=== PATIENT | female | born 1945 | race Caucasian/White ===

== ENCOUNTER 2018-07-28 15:13 | Inpatient (IN) | payer MEDICARE, BC ==
[~2018-07-28] VITALS: Ht 157.5 cm; Wt 59.0 kg
[2018-07-28 15:37] LABS: BASO # 0.1 x10^3/uL (0.0-0.2); BASO % 1 % (0-3); EOS # 0.2 x10^3/uL (0.0-0.7); EOS % 2 % (0-3); HEMATOCRIT 33.1 % (36.0-47.0); HEMOGLOBIN 11.2 g/dL (12.0-15.5); LYMPH # 1.1 x10^3/uL (1.0-4.8); LYMPH % 13 % (24-48); MEAN CORPUSCULAR HEMOGLOBIN 31 pg (25-35); MEAN CORPUSCULAR HGB CONC 34 g/dL (31-37); MEAN CORPUSCULAR VOLUME 92 fL (79-100); MONO # 0.7 x10^3/uL (0.0-1.1); MONO % 9 % (0-9); NEUT # 6.5 x10^3uL (1.8-7.7); NEUT % 76 % (31-73); PLATELET COUNT 205 x10^3/uL (140-400); RED CELL DISTRIBUTION WIDTH 15.1 % (11.5-14.5); WHITE BLOOD COUNT 8.6 x10^3/uL (4.0-11.0)
[2018-07-28] MEDS ORDERED: fentaNYL PF VIAL 100 MCG/2 ML VIAL ONE (15:44)
--- NOTE | 2018-07-28 15:46 | PHYS DOC ---
Past Medical History Past Medical History: No Pertinent History Additional Past Medical Histor: UNABLE TO ASSESS Past Surgical History: No Surgical History Additional Past Surgical Histo: UNABLE TO ASSESS Alcohol Use: None Drug Use: None Adult General Chief Complaint Chief Complaint: MECHANICAL FALL HPI HPI Patient is a 73 year old F who presents for fall down stairs. Found by at the bottom of the stairs. Maybe slipped on a piece of cardboard. Reported R hip deformity. Pt was given ketamine for pain and she is now sedate and cannot answer questions. Review of Systems Review of Systems Unable to obtain a ROS due to patients AMS 2/2 ketamine. Current Medications Current Medications Current Medications Medications (Trade) Dose Ordered Sig/Guzman Start Time Stop Time Status Last Admin Dose Admin Fentanyl Citrate (Fentanyl 2ml Vial) 50 mcg 1X ONCE 07/28/18 16:45 07/28/18 16:46 DC 07/28/18 16:44 50 MCG Hydromorphone HCl (Dilaudid) 0.5 mg PRN Q2HR PRN 07/28/18 17:00 07/28/18 16:59 0.5 MG Info (CONTRAST GIVEN -- Rx MONITORING) 1 each PRN DAILY PRN 07/28/18 16:15 07/30/18 16:14 Iohexol (Omnipaque 300 Mg/ml) 100 ml STK-MED ONCE 07/28/18 16:08 07/28/18 16:09 DC Ondansetron HCl (Zofran) 4 mg STK-MED ONCE 07/28/18 16:12 07/28/18 16:13 DC Allergies Allergies Allergies Coded Allergies Type Severity Reaction Last Updated Verified No Known Drug Allergies 07/28/18 No Physical Exam Physical Exam Constitutional: No distress HENT: Normocephalic, atraumatic, bilateral external ears normal, oropharynx moist, no oral exudates, nose normal. Eyes: PERRLA, EOMI, conjunctiva normal, no discharge. Neck: Cervical collar placed on arrival, trachea midline Cardiovascular: Heart rate regular rhythm, no murmur Lungs & Thorax: Bilateral breath sounds clear to auscultation Abdomen: Bowel sounds normal, soft, no tenderness, no masses, no pulsatile masses. Skin: Warm, dry, no erythema, no rash. Back: No tenderness, no CVA tenderness. Extremities: No tenderness, no cyanosis, no clubbing, ROM intact, no edema. bilat upper extremities and LLE with intact ROM - no deformity/tenderness/crepitus. R leg without deformity, 2+ DP pulse, traction splint in place. Neurologic: Alert, normal motor and sensory fx, unable to test R leg as it is in traction on arrival. Psychologic: Affect normal, judgement normal, mood normal. Current Patient Data Vital Signs Vital Signs Date Time Temp Pulse Resp B/P (MAP) Pulse Ox O2 Delivery O2 Flow Rate FiO2 07/28/18 17:00 78 16 100 07/28/18 15:42 Nasal Cannula 4.0 07/28/18 15:13 98.3 158/76 (103) 98.3 Lab Values Laboratory Tests Test 07/28/18 15:20 07/28/18 15:40 White Blood Count 8.6 x10^3/uL (4.0-11.0) Red Blood Count 3.60 x10^6/uL (3.50-5.40) Hemoglobin 11.2 g/dL (12.0-15.5) L Hematocrit 33.1 % (36.0-47.0) L Mean Corpuscular Volume 92 fL (79-100) Mean Corpuscular Hemoglobin 31 pg (25-35) Mean Corpuscular Hemoglobin Concent 34 g/dL (31-37) Red Cell Distribution Width 15.1 % (11.5-14.5) H Platelet Count 205 x10^3/uL (140-400) Neutrophils (%) (Auto) 76 % (31-73) H Lymphocytes (%) (Auto) 13 % (24-48) L Monocytes (%) (Auto) 9 % (0-9) Eosinophils (%) (Auto) 2 % (0-3) Basophils (%) (Auto) 1 % (0-3) Neutrophils # (Auto) 6.5 x10^3uL (1.8-7.7) Lymphocytes # (Auto) 1.1 x10^3/uL (1.0-4.8) Monocytes # (Auto) 0.7 x10^3/uL (0.0-1.1) Eosinophils # (Auto) 0.2 x10^3/uL (0.0-0.7) Basophils # (Auto) 0.1 x10^3/uL (0.0-0.2) Prothrombin Time 12.6 SEC (11.7-14.0) Prothrombin Time INR 1.0 (0.8-1.1) PTT 30 SEC (24-38) Sodium Level 141 mmol/L (136-145) Potassium Level 3.7 mmol/L (3.5-5.1) Chloride Level 103 mmol/L (98-107) Carbon Dioxide Level 28 mmol/L (21-32) Anion Gap 10 (6-14) Blood Urea Nitrogen 23 mg/dL (7-20) H Creatinine 0.9 mg/dL (0.6-1.0) Estimated GFR (Cockcroft-Gault) 61.5 BUN/Creatinine Ratio 26 (6-20) H Glucose Level 306 mg/dL (70-99) H Calcium Level 9.0 mg/dL (8.5-10.1) Total Bilirubin 0.4 mg/dL (0.2-1.0) Aspartate Amino Transferase (AST) 15 U/L (15-37) Alanine Aminotransferase (ALT) 19 U/L (14-59) Alkaline Phosphatase 60 U/L (46-116) Total Protein 6.6 g/dL (6.4-8.2) Albumin 3.5 g/dL (3.4-5.0) Albumin/Globulin Ratio 1.1 (1.0-1.7) Urine Collection Type Unknown Urine Color Yellow Urine Clarity Clear Urine pH 7.5 Urine Specific [place] 1.020 Urine Protein Negative mg/dL (NEG-TRACE) Urine Glucose (UA) 500 mg/dL (NEG) Urine Ketones (Stick) Trace mg/dL (NEG) Urine Blood Negative (NEG) Urine Nitrite Negative (NEG) Urine Bilirubin Negative (NEG) Urine Urobilinogen Dipstick 0.2 mg/dL (0.2 mg/dL) Urine Leukocyte Esterase Negative (NEG) Urine RBC Occ /HPF (0-2) Urine WBC Occ /HPF (0-4) Urine Squamous Epithelial Cells Few /LPF Urine Bacteria 0 /HPF (0-FEW) Laboratory Tests 07/28/18 15:20 Laboratory Tests 07/28/18 15:20 EKG EKG [] Radiology/Procedures Radiology/Procedures [] Course & Med Decision Making Course & Med Decision Making Pertinent Labs and Imaging studies reviewed. (See chart for details) 73 y/o F presents for fall. Xray shows R hip fx. CTs pending. Traction placed by EMS removed after xrays. Consulted Dr Dasilva - plan for OR tomorrow. Admit to Dr. Hatch [id number]. Dragon Disclaimer Glenn Disclaimer This electronic medical record was generated, in whole or in part, using a voice recognition dictation system. Departure Departure Impression: Primary Impression: Fall Additional Impression: Hip fracture, right Disposition: 09 ADMITTED INPATIENT Admitting Physician: Vielka Hatch Condition: GUARDED Problem Qualifiers POLY TELLEZ MD July 28, 2018 15:46
[2018-07-28 15:47] LABS: PROTHROMBIN TIME PATIENT 12.6 SEC (11.7-14.0)
--- NOTE | 2018-07-28 15:56 | RAD ---
Single view pelvis and two-view right femur dated 07/28/2018. No comparison available. CLINICAL INDICATION: Pain after injury. FINDINGS: AP view pelvis and 2 views right femur show a comminuted oblique fracture through the subtrochanteric right femur with mild medial displacement at the fracture site. There are fracture lines extending to the intertrochanteric region. No definite extension to the femoral neck. The distal femoral shaft is intact. Images of the pelvis are somewhat limited due to obliquity. There is no displaced fracture. The pelvic ring is grossly intact. Mild degenerative change of the bilateral hip joint and bilateral SI joint and pubic symphysis. Moderate spondylotic change of the lower lumbar spine. IMPRESSION: 1. Comminuted fracture of the subtrochanteric right femur with fracture lines extending to the intertrochanteric region. There is mild displacement. 2. No additional fractures are apparent. The pelvis is somewhat limited in evaluation due to obliquity. 3. Degenerative changes as described. Electronically signed by: Yassine Lemus MD (07/28/2018 3:53 PM) [id number]
--- NOTE | 2018-07-28 15:57 | RAD ---
EXAM: CHEST 1 VIEW History: Fall COMPARISON: None available. TECHNIQUE: Single portable radiograph of the chest FINDINGS: The cardiac silhouette is unremarkable. Mild prominent bilateral interstitial lung markings bilateral interstitial lung markings could be congestive changes or chronic interstitial changes. The costophrenic sulci are clear and well demarcated. IMPRESSION: Mild prominent bilateral interstitial lung markings could be congestive changes or chronic interstitial changes. Electronically signed by: Nam Enriquez MD (07/28/2018 3:53 PM) [place] [id number]
[2018-07-28 16:00] LABS: CREATININE 0.9 mg/dL (0.6-1.0); GFR 61.5; POTASSIUM 3.7 mmol/L (3.5-5.1)
[2018-07-28 16:03] LABS: ALBUMIN 3.5 g/dL (3.4-5.0); ALBUMIN/GLOBULIN RATIO 1.1 (1.0-1.7); TOTAL BILIRUBIN 0.4 mg/dL (0.2-1.0); TOTAL PROTEIN 6.6 g/dL (6.4-8.2)
[2018-07-28] MEDS ORDERED: IOHEXOL 300 MG/ML 100ML VIAL. ONE (16:08)
[2018-07-28] MEDS ORDERED: ONDANSETRON PF 4 MG/2 ML VIAL. ONE (16:12)
[2018-07-28] MEDS ORDERED: IOHEXOL 300 MG/ML 100ML VIAL. IV ONE (16:15)
[2018-07-28] MEDS ORDERED: fentaNYL PF VIAL 100 MCG/2 ML VIAL IV ONE ×3 (16:15→20:30)
[2018-07-28] MEDS ORDERED: ONDANSETRON PF 4 MG/2 ML VIAL. IV ONE (16:15)
[2018-07-28] MEDS ORDERED: CONTRAST GIVEN. MC PRN (16:15)
--- NOTE | 2018-07-28 16:37 | RAD ---
Examination: CT HEAD AND CERVICAL SPINE WO History: Fall down stairs, pain. Comparison/Correlation: None Findings: Axial images of the head and cervical spine were obtained without contrast. Sagittal and coronal reformatted images of the cervical spine were obtained. Atrophy is present. No intracranial hemorrhage, then shift, or mass effect. Globes and optic nerves are unremarkable. Atlantoaxial joint degenerative remodeling is notable. Minimal anterolisthesis of C3 relation C4 and C4 in relation C5 is present. This may relate to facet joint degenerative remodeling which is notable involving the upper cervical spine. Mild to moderate C6/7 disc space narrowing is present. Spurring is noted at the anterior aspect of the mid to lower cervical spine. Bony encroachment on the neural foramina noted at the C5-6 and C6/7 levels. Soft tissues of the neck are unremarkable. Visualized lung apices are unremarkable. Impression: No intracranial hemorrhage. Graft atrophy. No fracture or suspicious malalignment. PQRS Compliance Statement: One or more of the following individualized dose reduction techniques were utilized for this examination: 1. Automated exposure control 2. Adjustment of the mA and/or kV according to patient size 3. Use of iterative reconstruction technique Electronically signed by: Joseph Lin MD (07/28/2018 4:34 PM) [facility]
--- NOTE | 2018-07-28 16:52 | PDOC ---
Provider Note Provider Note Consult received. Chart and x-rays reviewed. Patient apparently still sedated so I will speak to her tomorrow. She has a right subtrochanteric femur fracture reported to me as closed. I will schedule surgery for tomorrow afternoon, approximately 3:30 PM. NADJA SAWYER MD July 28, 2018 16:52
--- NOTE | 2018-07-28 16:52 | RAD ---
Examination: CT CHEST ABD PELVIS W/CONTRAST History: Fell down stairs, pain, trauma Comparison/Correlation: None Findings: Axial images of chest, abdomen, and pelvis were obtained following IV contrast. Sagittal and coronal reformatted images were provided. Evaluation may be limited due to streak artifact as the patient's upper extremities are besides her during scanning. Subcutaneous gas is noted deep to the proximal right clavicle. Catheter tubing is identified leading to this site. Correlate with intervention. Significant coronary arterial calcification is noted. Mitral annular calcification noted. Thoracic aorta is unremarkable on this nonarteriographic exam. Mild gravity dependent atelectasis bilaterally is present. No infiltrate or effusion. No pneumothorax. No enlarged thoracic lymph nodes. Subtle nodular contour of the liver is present. Spleen, pancreas, and kidneys are unremarkable. Bilateral adrenal gland nodularity is present probably representing benign adenomas. Moderate quantity of stool in the colon is present. No ascites or pelvic free fluid. No extraluminal gas. No enlarged abdominal or pelvic lymph nodes. Mooney catheter is present within the urinary bladder. Low lumbar spine facet joint degenerative changes are present bilaterally. L3-4 degenerative space narrowing with endplate sclerosis and spurring noted. Disc space narrowing at L4 S5 also is present. Concentric disc bulge at each of these levels is notable. Comminuted displaced right intertrochanteric fracture is present with significant lateral angulation of the dominant fracture fragments. Hip joint spaces are adequate. Impression: Comminuted, displaced right intertrochanteric fracture. No evidence of organ laceration. Subcutaneous gas is present deep to the proximal right clavicle. Correlate with intervention. PQRS Compliance Statement: One or more of the following individualized dose reduction techniques were utilized for this examination: 1. Automated exposure control 2. Adjustment of the mA and/or kV according to patient size 3. Use of iterative reconstruction technique Electronically signed by: Joseph Lin MD (07/28/2018 4:49 PM) [facility]
[2018-07-28] MEDS: HYDROmorphone 2 MG/ML VIAL IV PRN (16:59)
[2018-07-28 17:05] LABS: BILIRUBIN,URINE NEGATIVE (NEG); CLARITY,URINE CLEAR; COLOR,URINE YELLOW; NITRITE,URINE NEGATIVE (NEG); PH,URINE 7.5; PROTEIN,URINE NEGATIVE (NEG-TRACE); UROBILINOGEN,URINE 0.2 mg/dL (0.2 mg/dL)
[2018-07-28 17:30] LABS: BACTERIA,URINE 0 /HPF (0-FEW); RBC,URINE OCC /HPF (0-2); SQUAMOUS EPITHELIAL CELL,UR FEW /LPF; WBC,URINE OCC /HPF (0-4)
[2018-07-28] MEDS: fentaNYL PF VIAL 100 MCG/2 ML VIAL IV PRN ×3 (18:40→20:57)
[2018-07-28 19:00] VITALS: BP 133/69
[2018-07-28] MEDS ORDERED: ONDANSETRON PF 4 MG/2 ML VIAL. IV PRN (20:15)
--- NOTE | 2018-07-28 20:15 | NUR ---
Patient complain of pain. Dr. Hatch notified. Orders received. Will continue to monitor.
[2018-07-28] MEDS ORDERED: fentaNYL PF VIAL 100 MCG/2 ML VIAL IV PRN (20:30)
[2018-07-28] MEDS: IV NORMAL SALINE 1000ML BAG 1,000 ML IV SCH (21:11)
--- NOTE | 2018-07-28 21:43 | PDOC1 ---
History and Physical Date of Admission Date of Admission DATE: 07/28/18 TIME: 21:40 Source Source: Caregiver, Chart review History of Present Illness History of Present Illness Ms. Villatoro, is a 73 year old F who presents for fall down stairs. Found by at the bottom of the stairs. Maybe slipped on a piece of cardboard. Reported R hip deformity. Pt was given ketamine for pain en route and she was out hard in the ER. then awake later on the floor and agitated and angry, increased meds given, and then asleep her daughter is her to assist tongiht. Past Medical History Cardiovascular: No pertinent hx Pulmonary: No pertinent hx Past Surgical History Past Surgical History: No pertinent history Family History Family History: No Significant Social History Smoke: No ALCOHOL: none Drugs: None Current Problem List Problem List Problems Medical Problems: (1) Fall Status: Acute (2) Hip fracture, right Status: Acute Current Medications Current Medications Current Medications Fentanyl Citrate (Fentanyl 2ml Vial) 100 mcg STK-MED ONCE .ROUTE ; Start 07/28/18 at 15:44; Stop 07/28/18 at 15:45; Status DC Iohexol (Omnipaque 300 Mg/ml) 75 ml 1X ONCE IV Last administered on 07/28/18at 16:22; Start 07/28/18 at 16:15; Stop 07/28/18 at 16:25; Status DC Fentanyl Citrate (Fentanyl 2ml Vial) 50 mcg 1X ONCE IV Last administered on 07/28/18at 16:34; Start 07/28/18 at 16:15; Stop 07/28/18 at 16:25; Status DC Info (CONTRAST GIVEN -- Rx MONITORING) 1 each PRN DAILY PRN MC SEE COMMENTS; Start 07/28/18 at 16:15; Stop 07/30/18 at 16:14 Iohexol (Omnipaque 300 Mg/ml) 100 ml STK-MED ONCE .ROUTE ; Start 07/28/18 at 16:08; Stop 07/28/18 at 16:09; Status DC Ondansetron HCl (Zofran) 4 mg 1X ONCE IV Last administered on 07/28/18at 16:34; Start 07/28/18 at 16:15; Stop 07/28/18 at 16:25; Status DC Ondansetron HCl (Zofran) 4 mg STK-MED ONCE .ROUTE ; Start 07/28/18 at 16:12; Stop 07/28/18 at 16:13; Status DC Fentanyl Citrate (Fentanyl 2ml Vial) 50 mcg 1X ONCE IV Last administered on 07/28/18at 16:44; Start 07/28/18 at 16:45; Stop 07/28/18 at 16:46; Status DC Hydromorphone HCl (Dilaudid) 0.5 mg PRN Q2HR PRN IV BREAKTHROUGH PAIN Last administered on 07/28/18at 16:59; Start 07/28/18 at 17:00 Ropivacaine 53.3 ml/Epinephrine HCl 0.6 mg/ Morphine Sulfate 5 mg/Sodium Chloride 100 ml @ 100 mls/hr 1X ONCE INT ART ; Start 07/29/18 at 06:00; Stop 07/29/18 at 06:59 Fentanyl Citrate (Fentanyl 2ml Vial) 50 mcg PRN Q1HR PRN IV PAIN Last administered on 07/28/18at 20:57; Start 07/28/18 at 18:45 Ondansetron HCl (Zofran) 4 mg PRN Q6HRS PRN IV NAUSEA/VOMITING; Start 07/28/18 at 20:15 Fentanyl Citrate (Fentanyl 2ml Vial) 75 mcg PRN Q2HR PRN IV PAIN; Start 07/28/18 at 20:30 Fentanyl Citrate (Fentanyl 2ml Vial) 100 mcg 1X ONCE IV ; Start 07/28/18 at 20:30; Stop 07/28/18 at 20:33; Status DC Sodium Chloride 1,000 ml @ 80 mls/hr [id number] IV Last administered on 07/28/18at 21:11; Start 07/28/18 at 20:30 Ketorolac Tromethamine (Toradol 15mg Vial) 15 mg PRN Q6HRS PRN IV MODERATE PAIN; Start 07/28/18 at 21:15; Stop 08/02/18 at 21:14 Allergies Allergies: Coded Allergies: No Known Drug Allergies (Unverified , 07/28/18) ROS Review of System unable due to agitation then sedation Physical Exam General: Alert, severe distress, Other (then sedated) HEENT: Atraumatic, PERRLA Lungs: Clear to auscultation Extremities: No cyanosis, No edema Skin: No rashes Neuro: Sensation intact Psych/Mental Status: Other (agitated, upset, then asleep) Vitals Vitals Vital Signs Date Time Temp Pulse Resp B/P (MAP) Pulse Ox O2 Delivery O2 Flow Rate FiO2 07/28/18 20:57 Nasal Cannula 3.0 07/28/18 19:49 100 07/28/18 19:00 97.5 87 18 133/69 (90) 97.5 Labs Labs Laboratory Tests Test 07/28/18 15:20 07/28/18 15:40 White Blood Count 8.6 x10^3/uL (4.0-11.0) Red Blood Count 3.60 x10^6/uL (3.50-5.40) Hemoglobin 11.2 g/dL (12.0-15.5) Hematocrit 33.1 % (36.0-47.0) Mean Corpuscular Volume 92 fL (79-100) Mean Corpuscular Hemoglobin 31 pg (25-35) Mean Corpuscular Hemoglobin Concent 34 g/dL (31-37) Red Cell Distribution Width 15.1 % (11.5-14.5) Platelet Count 205 x10^3/uL (140-400) Neutrophils (%) (Auto) 76 % (31-73) Lymphocytes (%) (Auto) 13 % (24-48) Monocytes (%) (Auto) 9 % (0-9) Eosinophils (%) (Auto) 2 % (0-3) Basophils (%) (Auto) 1 % (0-3) Neutrophils # (Auto) 6.5 x10^3uL (1.8-7.7) Lymphocytes # (Auto) 1.1 x10^3/uL (1.0-4.8) Monocytes # (Auto) 0.7 x10^3/uL (0.0-1.1) Eosinophils # (Auto) 0.2 x10^3/uL (0.0-0.7) Basophils # (Auto) 0.1 x10^3/uL (0.0-0.2) Prothrombin Time 12.6 SEC (11.7-14.0) Prothromb Time International Ratio 1.0 (0.8-1.1) Activated Partial Thromboplast Time 30 SEC (24-38) Sodium Level 141 mmol/L (136-145) Potassium Level 3.7 mmol/L (3.5-5.1) Chloride Level 103 mmol/L (98-107) Carbon Dioxide Level 28 mmol/L (21-32) Anion Gap 10 (6-14) Blood Urea Nitrogen 23 mg/dL (7-20) Creatinine 0.9 mg/dL (0.6-1.0) Estimated GFR (Cockcroft-Gault) 61.5 BUN/Creatinine Ratio 26 (6-20) Glucose Level 306 mg/dL (70-99) Calcium Level 9.0 mg/dL (8.5-10.1) Total Bilirubin 0.4 mg/dL (0.2-1.0) Aspartate Amino Transf (AST/SGOT) 15 U/L (15-37) Alanine Aminotransferase (ALT/SGPT) 19 U/L (14-59) Alkaline Phosphatase 60 U/L (46-116) Total Protein 6.6 g/dL (6.4-8.2) Albumin 3.5 g/dL (3.4-5.0) Albumin/Globulin Ratio 1.1 (1.0-1.7) Urine Collection Type Unknown Urine Color Yellow Urine Clarity Clear Urine pH 7.5 Urine Specific [place] 1.020 Urine Protein Negative mg/dL (NEG-TRACE) Urine Glucose (UA) 500 mg/dL (NEG) Urine Ketones (Stick) Trace mg/dL (NEG) Urine Blood Negative (NEG) Urine Nitrite Negative (NEG) Urine Bilirubin Negative (NEG) Urine Urobilinogen Dipstick 0.2 mg/dL (0.2 mg/dL) Urine Leukocyte Esterase Negative (NEG) Urine RBC Occ /HPF (0-2) Urine WBC Occ /HPF (0-4) Urine Squamous Epithelial Cells Few /LPF Urine Bacteria 0 /HPF (0-FEW) Laboratory Tests Test 07/28/18 15:20 07/28/18 15:40 White Blood Count 8.6 x10^3/uL (4.0-11.0) Red Blood Count 3.60 x10^6/uL (3.50-5.40) Hemoglobin 11.2 g/dL (12.0-15.5) Hematocrit 33.1 % (36.0-47.0) Mean Corpuscular Volume 92 fL (79-100) Mean Corpuscular Hemoglobin 31 pg (25-35) Mean Corpuscular Hemoglobin Concent 34 g/dL (31-37) Red Cell Distribution Width 15.1 % (11.5-14.5) Platelet Count 205 x10^3/uL (140-400) Neutrophils (%) (Auto) 76 % (31-73) Lymphocytes (%) (Auto) 13 % (24-48) Monocytes (%) (Auto) 9 % (0-9) Eosinophils (%) (Auto) 2 % (0-3) Basophils (%) (Auto) 1 % (0-3) Neutrophils # (Auto) 6.5 x10^3uL (1.8-7.7) Lymphocytes # (Auto) 1.1 x10^3/uL (1.0-4.8) Monocytes # (Auto) 0.7 x10^3/uL (0.0-1.1) Eosinophils # (Auto) 0.2 x10^3/uL (0.0-0.7) Basophils # (Auto) 0.1 x10^3/uL (0.0-0.2) Prothrombin Time 12.6 SEC (11.7-14.0) Prothromb Time International Ratio 1.0 (0.8-1.1) Activated Partial Thromboplast Time 30 SEC (24-38) Sodium Level 141 mmol/L (136-145) Potassium Level 3.7 mmol/L (3.5-5.1) Chloride Level 103 mmol/L (98-107) Carbon Dioxide Level 28 mmol/L (21-32) Anion Gap 10 (6-14) Blood Urea Nitrogen 23 mg/dL (7-20) Creatinine 0.9 mg/dL (0.6-1.0) Estimated GFR (Cockcroft-Gault) 61.5 BUN/Creatinine Ratio 26 (6-20) Glucose Level 306 mg/dL (70-99) Calcium Level 9.0 mg/dL (8.5-10.1) Total Bilirubin 0.4 mg/dL (0.2-1.0) Aspartate Amino Transf (AST/SGOT) 15 U/L (15-37) Alanine Aminotransferase (ALT/SGPT) 19 U/L (14-59) Alkaline Phosphatase 60 U/L (46-116) Total Protein 6.6 g/dL (6.4-8.2) Albumin 3.5 g/dL (3.4-5.0) Albumin/Globulin Ratio 1.1 (1.0-1.7) Urine Collection Type Unknown Urine Color Yellow Urine Clarity Clear Urine pH 7.5 Urine Specific [place] 1.020 Urine Protein Negative mg/dL (NEG-TRACE) Urine Glucose (UA) 500 mg/dL (NEG) Urine Ketones (Stick) Trace mg/dL (NEG) Urine Blood Negative (NEG) Urine Nitrite Negative (NEG) Urine Bilirubin Negative (NEG) Urine Urobilinogen Dipstick 0.2 mg/dL (0.2 mg/dL) Urine Leukocyte Esterase Negative (NEG) Urine RBC Occ /HPF (0-2) Urine WBC Occ /HPF (0-4) Urine Squamous Epithelial Cells Few /LPF Urine Bacteria 0 /HPF (0-FEW) VTE Prophylaxis Ordered VTE Prophylaxis Devices: Yes VTE Pharmacological Prophylaxi: No Assessment/Plan Assessment/Plan fall acute right hip pain hip fracture plan to OR in AM pain difficult to control CARIN GUTIERREZ MD July 28, 2018 21:43
[2018-07-28] MEDS: KETOROLAC 15 MG/ML VIAL. IV PRN (22:13)
[2018-07-28 23:00] VITALS: BP 148/69
[2018-07-29] VITALS (11 sets, daily range): BP systolic 105–121; BP diastolic 43–73
[2018-07-29] MEDS: HYDROmorphone 2 MG/ML VIAL IV PRN ×5 (03:29→14:22)
[2018-07-29] MEDS ORDERED: [UNRECOGNIZED DRUG - REMARK] INT ART ONE ×4 (06:00)
[2018-07-29] MEDS: IV NORMAL SALINE 1000ML BAG 1,000 ML IV SCH ×2 (07:35→22:00)
--- NOTE | 2018-07-29 08:21 | PDOC ---
PROGRESS NOTES Chief Complaint Chief Complaint fall acute right hip pain hip fracture Hypothyroidism DM2 HTN Anemia - likely of chronic disease, will check iron, b12 Osteopenia - on calcium and vitamin D, will check D plan to OR this afternoon Restart home meds Lovenox post op History of Present Illness History of Present Illness Ms. Villatoro, is a 73 year old F w/ PMHx DM2, HTN, HLD, osteopenia who presents for fall down stairs. Found by at the bottom of the stairs. Maybe slipped on a piece of cardboard. Reported R hip deformity. Pt was given ketamine for pain en route and she was out hard in the ER. then awake later on the floor and agitated and angry, increased meds given, and then asleep Pain difficult to control. Feeling a bit better this afternoon. She has an appetite, frustrated about NPO, scared of the OR. Vitals Vitals Vital Signs Date Time Temp Pulse Resp B/P (MAP) Pulse Ox O2 Delivery O2 Flow Rate FiO2 07/29/18 07:34 Nasal Cannula 3.0 07/29/18 07:00 98.2 82 18 110/45 (66) 97 98.2 Physical Exam General: Alert, severe distress, Other (then sedated) Extremities: No cyanosis, No edema Skin: No rashes Labs LABS Laboratory Tests Test 07/28/18 15:20 07/28/18 15:40 White Blood Count 8.6 x10^3/uL (4.0-11.0) Red Blood Count 3.60 x10^6/uL (3.50-5.40) Hemoglobin 11.2 g/dL (12.0-15.5) Hematocrit 33.1 % (36.0-47.0) Mean Corpuscular Volume 92 fL (79-100) Mean Corpuscular Hemoglobin 31 pg (25-35) Mean Corpuscular Hemoglobin Concent 34 g/dL (31-37) Red Cell Distribution Width 15.1 % (11.5-14.5) Platelet Count 205 x10^3/uL (140-400) Neutrophils (%) (Auto) 76 % (31-73) Lymphocytes (%) (Auto) 13 % (24-48) Monocytes (%) (Auto) 9 % (0-9) Eosinophils (%) (Auto) 2 % (0-3) Basophils (%) (Auto) 1 % (0-3) Neutrophils # (Auto) 6.5 x10^3uL (1.8-7.7) Lymphocytes # (Auto) 1.1 x10^3/uL (1.0-4.8) Monocytes # (Auto) 0.7 x10^3/uL (0.0-1.1) Eosinophils # (Auto) 0.2 x10^3/uL (0.0-0.7) Basophils # (Auto) 0.1 x10^3/uL (0.0-0.2) Prothrombin Time 12.6 SEC (11.7-14.0) Prothromb Time International Ratio 1.0 (0.8-1.1) Activated Partial Thromboplast Time 30 SEC (24-38) Sodium Level 141 mmol/L (136-145) Potassium Level 3.7 mmol/L (3.5-5.1) Chloride Level 103 mmol/L (98-107) Carbon Dioxide Level 28 mmol/L (21-32) Anion Gap 10 (6-14) Blood Urea Nitrogen 23 mg/dL (7-20) Creatinine 0.9 mg/dL (0.6-1.0) Estimated GFR (Cockcroft-Gault) 61.5 BUN/Creatinine Ratio 26 (6-20) Glucose Level 306 mg/dL (70-99) Calcium Level 9.0 mg/dL (8.5-10.1) Total Bilirubin 0.4 mg/dL (0.2-1.0) Aspartate Amino Transf (AST/SGOT) 15 U/L (15-37) Alanine Aminotransferase (ALT/SGPT) 19 U/L (14-59) Alkaline Phosphatase 60 U/L (46-116) Total Protein 6.6 g/dL (6.4-8.2) Albumin 3.5 g/dL (3.4-5.0) Albumin/Globulin Ratio 1.1 (1.0-1.7) Urine Collection Type Unknown Urine Color Yellow Urine Clarity Clear Urine pH 7.5 Urine Specific [place] 1.020 Urine Protein Negative mg/dL (NEG-TRACE) Urine Glucose (UA) 500 mg/dL (NEG) Urine Ketones (Stick) Trace mg/dL (NEG) Urine Blood Negative (NEG) Urine Nitrite Negative (NEG) Urine Bilirubin Negative (NEG) Urine Urobilinogen Dipstick 0.2 mg/dL (0.2 mg/dL) Urine Leukocyte Esterase Negative (NEG) Urine RBC Occ /HPF (0-2) Urine WBC Occ /HPF (0-4) Urine Squamous Epithelial Cells Few /LPF Urine Bacteria 0 /HPF (0-FEW) Assessment and Plan Assessmemt and Plan Problems Medical Problems: (1) Fall Status: Acute (2) Hip fracture, right Status: Acute Comment Review of Relevant I have reviewed the following items emilia (where applicable) has been applied. Labs Laboratory Tests Test 07/28/18 15:20 07/28/18 15:40 White Blood Count 8.6 x10^3/uL (4.0-11.0) Red Blood Count 3.60 x10^6/uL (3.50-5.40) Hemoglobin 11.2 g/dL (12.0-15.5) Hematocrit 33.1 % (36.0-47.0) Mean Corpuscular Volume 92 fL (79-100) Mean Corpuscular Hemoglobin 31 pg (25-35) Mean Corpuscular Hemoglobin Concent 34 g/dL (31-37) Red Cell Distribution Width 15.1 % (11.5-14.5) Platelet Count 205 x10^3/uL (140-400) Neutrophils (%) (Auto) 76 % (31-73) Lymphocytes (%) (Auto) 13 % (24-48) Monocytes (%) (Auto) 9 % (0-9) Eosinophils (%) (Auto) 2 % (0-3) Basophils (%) (Auto) 1 % (0-3) Neutrophils # (Auto) 6.5 x10^3uL (1.8-7.7) Lymphocytes # (Auto) 1.1 x10^3/uL (1.0-4.8) Monocytes # (Auto) 0.7 x10^3/uL (0.0-1.1) Eosinophils # (Auto) 0.2 x10^3/uL (0.0-0.7) Basophils # (Auto) 0.1 x10^3/uL (0.0-0.2) Prothrombin Time 12.6 SEC (11.7-14.0) Prothromb Time International Ratio 1.0 (0.8-1.1) Activated Partial Thromboplast Time 30 SEC (24-38) Sodium Level 141 mmol/L (136-145) Potassium Level 3.7 mmol/L (3.5-5.1) Chloride Level 103 mmol/L (98-107) Carbon Dioxide Level 28 mmol/L (21-32) Anion Gap 10 (6-14) Blood Urea Nitrogen 23 mg/dL (7-20) Creatinine 0.9 mg/dL (0.6-1.0) Estimated GFR (Cockcroft-Gault) 61.5 BUN/Creatinine Ratio 26 (6-20) Glucose Level 306 mg/dL (70-99) Calcium Level 9.0 mg/dL (8.5-10.1) Total Bilirubin 0.4 mg/dL (0.2-1.0) Aspartate Amino Transf (AST/SGOT) 15 U/L (15-37) Alanine Aminotransferase (ALT/SGPT) 19 U/L (14-59) Alkaline Phosphatase 60 U/L (46-116) Total Protein 6.6 g/dL (6.4-8.2) Albumin 3.5 g/dL (3.4-5.0) Albumin/Globulin Ratio 1.1 (1.0-1.7) Urine Collection Type Unknown Urine Color Yellow Urine Clarity Clear Urine pH 7.5 Urine Specific [place] 1.020 Urine Protein Negative mg/dL (NEG-TRACE) Urine Glucose (UA) 500 mg/dL (NEG) Urine Ketones (Stick) Trace mg/dL (NEG) Urine Blood Negative (NEG) Urine Nitrite Negative (NEG) Urine Bilirubin Negative (NEG) Urine Urobilinogen Dipstick 0.2 mg/dL (0.2 mg/dL) Urine Leukocyte Esterase Negative (NEG) Urine RBC Occ /HPF (0-2) Urine WBC Occ /HPF (0-4) Urine Squamous Epithelial Cells Few /LPF Urine Bacteria 0 /HPF (0-FEW) Laboratory Tests Test 07/28/18 15:20 07/28/18 15:40 White Blood Count 8.6 x10^3/uL (4.0-11.0) Red Blood Count 3.60 x10^6/uL (3.50-5.40) Hemoglobin 11.2 g/dL (12.0-15.5) Hematocrit 33.1 % (36.0-47.0) Mean Corpuscular Volume 92 fL (79-100) Mean Corpuscular Hemoglobin 31 pg (25-35) Mean Corpuscular Hemoglobin Concent 34 g/dL (31-37) Red Cell Distribution Width 15.1 % (11.5-14.5) Platelet Count 205 x10^3/uL (140-400) Neutrophils (%) (Auto) 76 % (31-73) Lymphocytes (%) (Auto) 13 % (24-48) Monocytes (%) (Auto) 9 % (0-9) Eosinophils (%) (Auto) 2 % (0-3) Basophils (%) (Auto) 1 % (0-3) Neutrophils # (Auto) 6.5 x10^3uL (1.8-7.7) Lymphocytes # (Auto) 1.1 x10^3/uL (1.0-4.8) Monocytes # (Auto) 0.7 x10^3/uL (0.0-1.1) Eosinophils # (Auto) 0.2 x10^3/uL (0.0-0.7) Basophils # (Auto) 0.1 x10^3/uL (0.0-0.2) Prothrombin Time 12.6 SEC (11.7-14.0) Prothromb Time International Ratio 1.0 (0.8-1.1) Activated Partial Thromboplast Time 30 SEC (24-38) Sodium Level 141 mmol/L (136-145) Potassium Level 3.7 mmol/L (3.5-5.1) Chloride Level 103 mmol/L (98-107) Carbon Dioxide Level 28 mmol/L (21-32) Anion Gap 10 (6-14) Blood Urea Nitrogen 23 mg/dL (7-20) Creatinine 0.9 mg/dL (0.6-1.0) Estimated GFR (Cockcroft-Gault) 61.5 BUN/Creatinine Ratio 26 (6-20) Glucose Level 306 mg/dL (70-99) Calcium Level 9.0 mg/dL (8.5-10.1) Total Bilirubin 0.4 mg/dL (0.2-1.0) Aspartate Amino Transf (AST/SGOT) 15 U/L (15-37) Alanine Aminotransferase (ALT/SGPT) 19 U/L (14-59) Alkaline Phosphatase 60 U/L (46-116) Total Protein 6.6 g/dL (6.4-8.2) Albumin 3.5 g/dL (3.4-5.0) Albumin/Globulin Ratio 1.1 (1.0-1.7) Urine Collection Type Unknown Urine Color Yellow Urine Clarity Clear Urine pH 7.5 Urine Specific [place] 1.020 Urine Protein Negative mg/dL (NEG-TRACE) Urine Glucose (UA) 500 mg/dL (NEG) Urine Ketones (Stick) Trace mg/dL (NEG) Urine Blood Negative (NEG) Urine Nitrite Negative (NEG) Urine Bilirubin Negative (NEG) Urine Urobilinogen Dipstick 0.2 mg/dL (0.2 mg/dL) Urine Leukocyte Esterase Negative (NEG) Urine RBC Occ /HPF (0-2) Urine WBC Occ /HPF (0-4) Urine Squamous Epithelial Cells Few /LPF Urine Bacteria 0 /HPF (0-FEW) Medications Current Medications Fentanyl Citrate (Fentanyl 2ml Vial) 100 mcg STK-MED ONCE .ROUTE ; Start 07/28/18 at 15:44; Stop 07/28/18 at 15:45; Status DC Iohexol (Omnipaque 300 Mg/ml) 75 ml 1X ONCE IV Last administered on 07/28/18at 16:22; Start 07/28/18 at 16:15; Stop 07/28/18 at 16:25; Status DC Fentanyl Citrate (Fentanyl 2ml Vial) 50 mcg 1X ONCE IV Last administered on 07/28/18at 16:34; Start 07/28/18 at 16:15; Stop 07/28/18 at 16:25; Status DC Info (CONTRAST GIVEN -- Rx MONITORING) 1 each PRN DAILY PRN MC SEE COMMENTS; Start 07/28/18 at 16:15; Stop 07/30/18 at 16:14 Iohexol (Omnipaque 300 Mg/ml) 100 ml STK-MED ONCE .ROUTE ; Start 07/28/18 at 16:08; Stop 07/28/18 at 16:09; Status DC Ondansetron HCl (Zofran) 4 mg 1X ONCE IV Last administered on 07/28/18at 16:34; Start 07/28/18 at 16:15; Stop 07/28/18 at 16:25; Status DC Ondansetron HCl (Zofran) 4 mg STK-MED ONCE .ROUTE ; Start 07/28/18 at 16:12; Stop 07/28/18 at 16:13; Status DC Fentanyl Citrate (Fentanyl 2ml Vial) 50 mcg 1X ONCE IV Last administered on 07/28/18at 16:44; Start 07/28/18 at 16:45; Stop 07/28/18 at 16:46; Status DC Hydromorphone HCl (Dilaudid) 0.5 mg PRN Q2HR PRN IV BREAKTHROUGH PAIN Last administered on 07/29/18at 07:34; Start 07/28/18 at 17:00 Ropivacaine 53.3 ml/Epinephrine HCl 0.6 mg/ Morphine Sulfate 5 mg/Sodium Chloride 100 ml @ 100 mls/hr 1X ONCE INT ART ; Start 07/29/18 at 06:00; Stop 07/29/18 at 07:00; Status DC Fentanyl Citrate (Fentanyl 2ml Vial) 50 mcg PRN Q1HR PRN IV PAIN Last administered on 07/28/18at 20:57; Start 07/28/18 at 18:45 Ondansetron HCl (Zofran) 4 mg PRN Q6HRS PRN IV NAUSEA/VOMITING; Start 07/28/18 at 20:15 Fentanyl Citrate (Fentanyl 2ml Vial) 75 mcg PRN Q2HR PRN IV PAIN Last administered on 07/28/18at 22:49; Start 07/28/18 at 20:30 Fentanyl Citrate (Fentanyl 2ml Vial) 100 mcg 1X ONCE IV ; Start 07/28/18 at 20:30; Stop 07/28/18 at 20:33; Status DC Sodium Chloride 1,000 ml @ 80 mls/hr [id number] IV Last administered on 07/29/18at 07:35; Start 07/28/18 at 20:30 Ketorolac Tromethamine (Toradol 15mg Vial) 15 mg PRN Q6HRS PRN IV MODERATE PAIN Last administered on 07/28/18at 22:13; Start 07/28/18 at 21:15; Stop 08/02/18 at 21:14 Vitals/I & O Vital Sign - Last 24 Hours 07/28/18 07/28/18 07/28/18 07/28/18 15:13 15:30 15:42 16:00 Temp 98.3 98.3 Pulse 77 76 82 70 Resp 16 20 16 16 B/P (MAP) 158/76 (103) Pulse Ox 98 93 95 O2 Delivery Nasal Cannula O2 Flow Rate 4.0 07/28/18 07/28/18 07/28/18 07/28/18 16:30 17:00 18:40 19:00 Temp 97.5 97.5 Pulse 76 78 87 Resp 16 16 18 B/P (MAP) 133/69 (90) Pulse Ox 100 100 98 O2 Delivery Nasal Cannula Nasal Cannula O2 Flow Rate 3.0 3.0 07/28/18 07/28/18 07/28/18 07/28/18 19:49 20:00 20:57 21:27 Pulse Ox 100 100 O2 Delivery Nasal Cannula Nasal Cannula Nasal Cannula Nasal Cannula O2 Flow Rate 3.0 3.0 3.0 3.0 07/28/18 07/28/18 07/28/18 07/29/18 22:49 23:00 23:19 00:00 Temp 97.9 97.9 Pulse 88 Resp 18 B/P (MAP) 148/69 (95) Pulse Ox 100 99 O2 Delivery Nasal Cannula Nasal Cannula Nasal Cannula Nasal Cannula O2 Flow Rate 3.0 3.0 3.0 3.0 07/29/18 07/29/18 07/29/18 07/29/18 03:00 03:29 03:59 07:00 Temp 98.1 98.2 98.1 98.2 Pulse 89 82 Resp 18 18 B/P (MAP) 120/56 (77) 110/45 (66) Pulse Ox 97 97 O2 Delivery Nasal Cannula Nasal Cannula Nasal Cannula Room Air O2 Flow Rate 3.0 3.0 3.0 07/29/18 07:34 O2 Delivery Nasal Cannula O2 Flow Rate 3.0 Intake and Output 07/28/18 07/28/18 07/29/18 14:59 22:59 06:59 Intake Total 200 ml 0 ml Output Total 850 ml Balance 200 ml -850 ml Images CXR - Mild prominent bilateral interstitial lung markings could be congestive changes or chronic interstitial changes. KAERN PADILLA MD July 29, 2018 08:21
[2018-07-29] MEDS ORDERED: DEXTROSE 50% 25 GM / 50ML DISP.SYRIN. IV PRN ×2 (08:30→19:30)
--- NOTE | 2018-07-29 09:16 | NUR ---
SW following for discharge planning. Discussed with RN, pt is from home with s/o, pt having surgery. SW await PT/OT recommendations for discharge planning.
[2018-07-29] MEDS ORDERED: PROP40TA PO (11:04)
[2018-07-29] MEDS ORDERED: EMPA1TAB PO (11:04)
[2018-07-29] MEDS ORDERED: LEVO125T5 PO (11:04)
[2018-07-29] MEDS ORDERED: MULT1TAB52 PO (11:04)
[2018-07-29] MEDS ORDERED: PIOG30TA41 PO (11:04)
[2018-07-29] MEDS ORDERED: CALC-98 PO (11:04)
[2018-07-29] MEDS ORDERED: OXYB5TAB7 PO (11:04)
[2018-07-29] MEDS ORDERED: GLYB5TAB3 PO (11:04)
[2018-07-29] MEDS ORDERED: GLUC100018 PO (11:04)
[2018-07-29] MEDS ORDERED: ASPI-612 PO (11:04)
[2018-07-29] MEDS ORDERED: VIT1TABL32 PO (11:04)
[2018-07-29] MEDS ORDERED: SELE200T10 PO (11:04)
[2018-07-29] MEDS ORDERED: LISI-338 PO (11:04)
[2018-07-29] MEDS ORDERED: METF500T16 PO (11:04)
[2018-07-29] MEDS ORDERED: OMEG1CAP6 PO (11:04)
[2018-07-29] MEDS ORDERED: LOVA20TA2 PO (11:04)
[2018-07-29] MEDS ORDERED: COLE1TAB PO (11:04)
[2018-07-29] MEDS: INSULIN LISPRO 300 UNITS/3 ML INSULN.PEN. SQ SCH ×2 (11:59→17:00)
[2018-07-29 12:13] LABS: BASO % 1 % (0-3); EOS % 0 % (0-3); HEMATOCRIT 30.8 % (36.0-47.0); HEMOGLOBIN 10.1 g/dL (12.0-15.5); LYMPH # 0.8 x10^3/uL (1.0-4.8); LYMPH % 11 % (24-48); MEAN CORPUSCULAR HEMOGLOBIN 30 pg (25-35); MEAN CORPUSCULAR HGB CONC 33 g/dL (31-37); MEAN CORPUSCULAR VOLUME 92 fL (79-100); MONO # 0.7 x10^3/uL (0.0-1.1); MONO % 10 % (0-9); NEUT # 5.8 x10^3uL (1.8-7.7); NEUT % 78 % (31-73); PLATELET COUNT 185 x10^3/uL (140-400); RED BLOOD COUNT 3.35 x10^6/uL (3.50-5.40); RED CELL DISTRIBUTION WIDTH 14.8 % (11.5-14.5); WHITE BLOOD COUNT 7.4 x10^3/uL (4.0-11.0)
[2018-07-29 12:39] LABS: CALCIUM 8.6 mg/dL (8.5-10.1); CREATININE 0.9 mg/dL (0.6-1.0); GFR 61.5
[2018-07-29] MEDS: LISINOPRIL 5 MG TABLET. PO SCH (13:00)
[2018-07-29] MEDS: PROPRANOLOL 40 MG TABLET. PO SCH (13:00)
[2018-07-29] MEDS ORDERED: MULTIVITAMIN I-VITE TABLET. PO SCH (13:00)
[2018-07-29] MEDS: OMEGA-3 FATTY ACIDS/FISH OIL 1,000 MG CAPSULE. PO SCH (13:00)
[2018-07-29] MEDS ORDERED: ROPIVacaine 0.75% PF 53.3 ML, EPINEPHrine 0.6 MG, MORPHINE PF 5 MG in IV NORMAL SALINE ... INT ART ONE (13:15)
[2018-07-29] MEDS: LEVOTHYROXINE 125 MCG TABLET PO SCH (15:30)
[2018-07-29] MEDS ORDERED: SEVOFLURANE 31 TO 60 MINUTES. IH ONE (15:39)
[2018-07-29] MEDS ORDERED: LIDOCAINE 2% PF 5 ML VIAL. ONE (15:40)
[2018-07-29] MEDS ORDERED: ONDANSETRON PF 4 MG/2 ML VIAL. ONE (15:40)
[2018-07-29] MEDS ORDERED: DEXAMETHASONE SOD PHOS 4 MG/ML VIAL ONE (15:40)
[2018-07-29] MEDS ORDERED: PHENYLEPHRINE 10 MG/ML VIAL. ONE (15:40)
[2018-07-29] MEDS ORDERED: PROPOFOL 20 ML IV ONE (15:40)
[2018-07-29] MEDS ORDERED: METOPROLOL TARTRATE 5 MG/5 ML VIAL. IVP ONE (15:52)
[2018-07-29] MEDS: glyBURIDE 5 MG TABLET PO SCH (15:54)
--- NOTE | 2018-07-29 16:00 | NUR ---
Patient was transported to Pre-op in preparation for surgery. Family present. Granddaughter Kaitlynn Benitez wants to be called when grandma is out of surgery .
[2018-07-29] MEDS: fentaNYL PF VIAL 100 MCG/2 ML VIAL IV PRN ×3 (16:15→19:44)
[2018-07-29] MEDS ORDERED: ceFAZolin SODIUM 1 GM VIAL ONE ×4 (16:29→17:17)
[2018-07-29] MEDS ORDERED: MIDAZOLAM HCL/PF 2 MG/2 ML VIAL. ONE (16:45)
--- NOTE | 2018-07-29 17:00 | NUR ---
Insulin non-administered by this nurse, due to patient NPO and in pre-op / surgery at this time.
[2018-07-29] MEDS: MIDAZOLAM HCL/PF 2 MG/2 ML VIAL. IV PRN ×2 (17:05→17:35)
--- NOTE | 2018-07-29 17:30 | NUR ---
Received a telephone call and spoke with patient's daughter Gia, who is waiting in the recovery room and said that mom-patient is still in pre-op.
--- NOTE | 2018-07-29 17:35 | NUR ---
Received a telephone call from NIDHI Colon in Pre-op to find out patient's family's phone numbers and that the patient is hysterical (this nurse could hear the outcries in the background) and is being taken into surgery now; gave phone numbers for both Álvaro (S.O.) and Gia (daughter) who is in the waiting room. Also contacted granddaughter Kaitlynn per request regarding patient status.
--- NOTE | 2018-07-29 17:51 | PDOC2 ---
CONSULT Date of Consult Date of Consult DATE: 07/29/18 TIME: 17:41 Reason for Consult Reason for Consult: Right hip fracture Identification/Chief Complaint Chief Complaint Right hip pain Source Source: Caregiver, Chart review, Patient History of Present Illness Reason for Visit: This 73-year-old woman fell yesterday on the landing of the stairs. Apparently is a new home for them, and there is a linoleum on the landing where she likely slipped. Her found her. She was given ketamine by EMS and was confused/unconscious yesterday. I interviewed her today at the bedside with her family there. She was still a little bit confused today. She normally walks without a cane or a walker. She drives. She is retired. She lives with her . Her only complaint is of the right hip currently Past Medical History Cardiovascular: No pertinent hx Pulmonary: No pertinent hx Past Surgical History Past Surgical History: No pertinent history Family History Family History: No Significant Social History No ALCOHOL: none Drugs: None Current Problem List Problem List Problems Medical Problems: (1) Fall Status: Acute (2) Hip fracture, right Status: Acute Current Medications Current Medications Current Medications Fentanyl Citrate (Fentanyl 2ml Vial) 100 mcg STK-MED ONCE .ROUTE ; Start 07/28/18 at 15:44; Stop 07/28/18 at 15:45; Status DC Iohexol (Omnipaque 300 Mg/ml) 75 ml 1X ONCE IV Last administered on 07/28/18at 16:22; Start 07/28/18 at 16:15; Stop 07/28/18 at 16:25; Status DC Fentanyl Citrate (Fentanyl 2ml Vial) 50 mcg 1X ONCE IV Last administered on 07/28/18at 16:34; Start 07/28/18 at 16:15; Stop 07/28/18 at 16:25; Status DC Info (CONTRAST GIVEN -- Rx MONITORING) 1 each PRN DAILY PRN MC SEE COMMENTS; Start 07/28/18 at 16:15; Stop 07/30/18 at 16:14 Iohexol (Omnipaque 300 Mg/ml) 100 ml STK-MED ONCE .ROUTE ; Start 07/28/18 at 16:08; Stop 07/28/18 at 16:09; Status DC Ondansetron HCl (Zofran) 4 mg 1X ONCE IV Last administered on 07/28/18at 16:34; Start 07/28/18 at 16:15; Stop 07/28/18 at 16:25; Status DC Ondansetron HCl (Zofran) 4 mg STK-MED ONCE .ROUTE ; Start 07/28/18 at 16:12; Stop 07/28/18 at 16:13; Status DC Fentanyl Citrate (Fentanyl 2ml Vial) 50 mcg 1X ONCE IV Last administered on 07/28/18at 16:44; Start 07/28/18 at 16:45; Stop 07/28/18 at 16:46; Status DC Hydromorphone HCl (Dilaudid) 0.5 mg PRN Q2HR PRN IV BREAKTHROUGH PAIN Last administered on 07/29/18at 14:22; Start 07/28/18 at 17:00 Ropivacaine 53.3 ml/Epinephrine HCl 0.6 mg/ Morphine Sulfate 5 mg/Sodium Chloride 100 ml @ 100 mls/hr 1X ONCE INT ART ; Start 07/29/18 at 06:00; Stop 07/29/18 at 07:00; Status DC Fentanyl Citrate (Fentanyl 2ml Vial) 50 mcg PRN Q1HR PRN IV MODERATE PAIN Last administered on 07/29/18at 16:15; Start 07/28/18 at 18:45 Ondansetron HCl (Zofran) 4 mg PRN Q6HRS PRN IV NAUSEA/VOMITING; Start 07/28/18 at 20:15 Fentanyl Citrate (Fentanyl 2ml Vial) 75 mcg PRN Q2HR PRN IV SEVERE PAIN Last administered on 07/28/18at 22:49; Start 07/28/18 at 20:30 Fentanyl Citrate (Fentanyl 2ml Vial) 100 mcg 1X ONCE IV ; Start 07/28/18 at 20:30; Stop 07/28/18 at 20:33; Status DC Sodium Chloride 1,000 ml @ 80 mls/hr [id number] IV Last administered on 07/29/18at 07:35; Start 07/28/18 at 20:30 Ketorolac Tromethamine (Toradol 15mg Vial) 15 mg PRN Q6HRS PRN IV MILD PAIN Last administered on 07/28/18at 22:13; Start 07/28/18 at 21:15; Stop 08/02/18 at 21:14 Insulin Glargine (Lantus) 5 units QHS SQ ; Start 07/29/18 at 21:00 Insulin Human Lispro (HumaLOG) 0-7 UNITS TIDWMEALS SQ ; Start 07/29/18 at 12:00 Dextrose (Dextrose 50%-Water Syringe) 12.5 gm PRN Q15MIN PRN IV SEE COMMENTS; Start 07/29/18 at 08:30 Glyburide (Diabeta) 10 mg BIDAC PO ; Start 07/29/18 at 16:30 Fish Oil (Fish Oil) 1,000 mg DAILY PO ; Start 07/29/18 at 13:00 Oxybutynin Chloride (Ditropan) 5 mg BID PO ; Start 07/29/18 at 21:00 Multivitamins/ Minerals (I-María Elena) 1 tab DAILY PO ; Start 07/29/18 at 13:00 Non-Formulary Medication (Glucosamine Sulfate 2KCL (Glucosamine)) 1,000 mg DAILY PO ; Start 07/30/18 at 09:00; Status UNV Levothyroxine Sodium (Synthroid) 125 mcg DAILY06 PO ; Start 07/29/18 at 15:30 Lisinopril (Prinivil) 5 mg DAILY PO ; Start 07/29/18 at 13:00 Atorvastatin Calcium (Lipitor) 5 mg QHS PO ; Start 07/29/18 at 21:00 Propranolol HCl (Inderal) 40 mg DAILY PO ; Start 07/29/18 at 13:00 Non-Formulary Medication (Selenomethionine (Selenium)) 200 mcg DAILY PO ; Start 07/30/18 at 09:00; Status UNV Cefazolin Sodium/ Dextrose 50 ml @ 100 mls/hr 1X PREOP PRN IV SEE COMMENTS; Start 07/29/18 at 13:15 Ropivacaine 53.3 ml/Epinephrine HCl 0.6 mg/ Morphine Sulfate 5 mg/Sodium Chloride 100 ml @ 100 mls/hr 1X ONCE INT ART ; Start 07/29/18 at 13:15; Stop 07/29/18 at 14:14; Status DC Sevoflurane (Ultane) 30 ml STK-MED ONCE IH ; Start 07/29/18 at 15:39; Stop 07/29/18 at 15:40; Status DC Dexamethasone Sodium Phosphate (Decadron) 4 mg STK-MED ONCE .ROUTE ; Start 07/29/18 at 15:40; Stop 07/29/18 at 15:41; Status DC Propofol 20 ml @ As Directed STK-MED ONCE IV ; Start 07/29/18 at 15:40; Stop 07/29/18 at 15:41; Status DC Lidocaine HCl (Lidocaine Pf 2% Vial) 5 ml STK-MED ONCE .ROUTE ; Start 07/29/18 at 15:40; Stop 07/29/18 at 15:41; Status DC Ondansetron HCl (Zofran) 4 mg STK-MED ONCE .ROUTE ; Start 07/29/18 at 15:40; Stop 07/29/18 at 15:41; Status DC Phenylephrine HCl (Perfecto-Synephrine Inj) 10 mg STK-MED ONCE .ROUTE ; Start 07/29/18 at 15:40; Stop 07/29/18 at 15:41; Status DC Metoprolol Tartrate (Lopressor Vial) 5 mg STK-MED ONCE IVP ; Start 07/29/18 at 15:52; Stop 07/29/18 at 15:53; Status DC Cefazolin Sodium (Ancef) 1 gm STK-MED ONCE .ROUTE ; Start 07/29/18 at 16:29; Stop 07/29/18 at 16:30; Status DC Cefazolin Sodium (Ancef) 1 gm STK-MED ONCE .ROUTE ; Start 07/29/18 at 16:29; Stop 07/29/18 at 16:30; Status DC Cefazolin Sodium (Ancef) 1 gm STK-MED ONCE .ROUTE ; Start 07/29/18 at 16:29; Stop 07/29/18 at 16:30; Status DC Midazolam HCl (Versed) 2 mg STK-MED ONCE .ROUTE ; Start 07/29/18 at 16:45; Stop 07/29/18 at 16:46; Status DC Midazolam HCl (Versed) 0.5 mg PRN Q10MIN PRN IV anxiety Last administered on 07/29/18at 17:05; Start 07/29/18 at 17:00 Cefazolin Sodium (Ancef) 1 gm STK-MED ONCE .ROUTE ; Start 07/29/18 at 17:17; Stop 07/29/18 at 17:18; Status DC Active Scripts Active Reported Aspirin Ec (Aspirin) 81 Mg Tablet.dr 1 Tab PO DAILY Ocuvite Tablet (Vit A,C & E/Lutein/Minerals) 1 Each Tablet 1 Each PO DAILY Fish Oil 1,000 Mg Capsule ([place]-3 Fatty Acids/Fish Oil) 1 Each Capsule 1 Each PO DAILY Glucosamine (Glucosamine Sulfate 2KCL) 1,000 Mg Tablet 1,000 Mg PO DAILY Selenium (Selenomethionine) 200 Mcg Tablet 200 Mcg PO DAILY Glyxambi 25 mg-5 mg Tablet (Empagliflozin/Linagliptin) 1 Each Tablet 1 Each PO DAILY Oxybutynin Chloride 5 Mg Tablet 5 Mg PO BID Multivitamins (Multivitamin) 1 Each Tablet 1 Tab PO DAILY Metformin Hcl 500 Mg Tablet 500 Mg PO BIDWMEALS Calcium + Vitamin D Tablet (Calcium Carbonate/Vitamin D3) 1 Each Tablet 1 Each PO DAILY Colestid (Colestipol Hcl) 1 Gm Tablet 1 Gm PO BID Actos (Pioglitazone Hcl) 30 Mg Tablet 30 Mg PO DAILY Lisinopril 5 Mg Tablet 5 Mg PO DAILY Lovastatin 20 Mg Tablet 10 Mg PO DAILY Propranolol Hcl 40 Mg Tablet 40 Mg PO DAILY Levothyroxine Sodium 125 Mcg Tablet 125 Mcg PO DAILYAC Glyburide 5 Mg Tablet 10 Mg PO BID Allergies Allergies: Coded Allergies: No Known Drug Allergies (Unverified , 07/28/18) ROS General: No: Chills, Night Sweats Eyes: No Decreased vision Hematological and Lymphatic: No: Blood Clots Respiratory: No: Cough, Shortness of breath Cardiovascular: No Chest Pain, No Palpitations Gastrointestinal: No Nausea, No Vomiting, No Diarrhea Genitourinary: No Hematuria Musculoskeletal: Yes Joint Pain Neurological: Yes Behavorial Changes (currently with ketamine) Physical Exam General: Alert, No acute distress HEENT: Atraumatic Lungs: Normal air movement Heart: Regular rate Abdomen: Soft Extremities: Other (the right lower extremity has trace diffuse edema. Dorsalis pedis pulse is palpable. She has intact sensation of the toes. She was barely able to dorsiflex and plantarflex the toes, likely decreased due to pain, I do not detect any specific nerve or artery injury.) Skin: No rashes, No breakdown, Other (the skin is intact over the fracture. There was no ecchymosis.) MUSCULOSKELETAL: Abnormal exam of right (the right lower extremity is in an externally rotated and shortened position) Vitals VITALS Vital Signs Date Time Temp Pulse Resp B/P (MAP) Pulse Ox O2 Delivery O2 Flow Rate FiO2 07/29/18 16:21 99.6 86 20 123/59 98 Nasal Cannula 2 99.6 Labs Labs Laboratory Tests Test 07/28/18 15:20 07/28/18 15:40 07/29/18 00:10 07/29/18 11:21 White Blood Count 8.6 x10^3/uL (4.0-11.0) Red Blood Count 3.60 x10^6/uL (3.50-5.40) Hemoglobin 11.2 g/dL (12.0-15.5) Hematocrit 33.1 % (36.0-47.0) Mean Corpuscular Volume 92 fL (79-100) Mean Corpuscular Hemoglobin 31 pg (25-35) Mean Corpuscular Hemoglobin Concent 34 g/dL (31-37) Red Cell Distribution Width 15.1 % (11.5-14.5) Platelet Count 205 x10^3/uL (140-400) Neutrophils (%) (Auto) 76 % (31-73) Lymphocytes (%) (Auto) 13 % (24-48) Monocytes (%) (Auto) 9 % (0-9) Eosinophils (%) (Auto) 2 % (0-3) Basophils (%) (Auto) 1 % (0-3) Neutrophils # (Auto) 6.5 x10^3uL (1.8-7.7) Lymphocytes # (Auto) 1.1 x10^3/uL (1.0-4.8) Monocytes # (Auto) 0.7 x10^3/uL (0.0-1.1) Eosinophils # (Auto) 0.2 x10^3/uL (0.0-0.7) Basophils # (Auto) 0.1 x10^3/uL (0.0-0.2) Prothrombin Time 12.6 SEC (11.7-14.0) Prothromb Time International Ratio 1.0 (0.8-1.1) Activated Partial Thromboplast Time 30 SEC (24-38) Sodium Level 141 mmol/L (136-145) Potassium Level 3.7 mmol/L (3.5-5.1) Chloride Level 103 mmol/L (98-107) Carbon Dioxide Level 28 mmol/L (21-32) Anion Gap 10 (6-14) Blood Urea Nitrogen 23 mg/dL (7-20) Creatinine 0.9 mg/dL (0.6-1.0) Estimated GFR (Cockcroft-Gault) 61.5 BUN/Creatinine Ratio 26 (6-20) Glucose Level 306 mg/dL (70-99) Calcium Level 9.0 mg/dL (8.5-10.1) Total Bilirubin 0.4 mg/dL (0.2-1.0) Aspartate Amino Transf (AST/SGOT) 15 U/L (15-37) Alanine Aminotransferase (ALT/SGPT) 19 U/L (14-59) Alkaline Phosphatase 60 U/L (46-116) Total Protein 6.6 g/dL (6.4-8.2) Albumin 3.5 g/dL (3.4-5.0) Albumin/Globulin Ratio 1.1 (1.0-1.7) Urine Collection Type Unknown Urine Color Yellow Urine Clarity Clear Urine pH 7.5 Urine Specific [place] 1.020 Urine Protein Negative mg/dL (NEG-TRACE) Urine Glucose (UA) 500 mg/dL (NEG) Urine Ketones (Stick) Trace mg/dL (NEG) Urine Blood Negative (NEG) Urine Nitrite Negative (NEG) Urine Bilirubin Negative (NEG) Urine Urobilinogen Dipstick 0.2 mg/dL (0.2 mg/dL) Urine Leukocyte Esterase Negative (NEG) Urine RBC Occ /HPF (0-2) Urine WBC Occ /HPF (0-4) Urine Squamous Epithelial Cells Few /LPF Urine Bacteria 0 /HPF (0-FEW) Nasal Screen MRSA (PCR) Negative (Negative) Glucose (Fingerstick) 212 mg/dL (70-99) Test 07/29/18 12:05 07/29/18 16:19 White Blood Count 7.4 x10^3/uL (4.0-11.0) Red Blood Count 3.35 x10^6/uL (3.50-5.40) Hemoglobin 10.1 g/dL (12.0-15.5) Hematocrit 30.8 % (36.0-47.0) Mean Corpuscular Volume 92 fL (79-100) Mean Corpuscular Hemoglobin 30 pg (25-35) Mean Corpuscular Hemoglobin Concent 33 g/dL (31-37) Red Cell Distribution Width 14.8 % (11.5-14.5) Platelet Count 185 x10^3/uL (140-400) Neutrophils (%) (Auto) 78 % (31-73) Lymphocytes (%) (Auto) 11 % (24-48) Monocytes (%) (Auto) 10 % (0-9) Eosinophils (%) (Auto) 0 % (0-3) Basophils (%) (Auto) 1 % (0-3) Neutrophils # (Auto) 5.8 x10^3uL (1.8-7.7) Lymphocytes # (Auto) 0.8 x10^3/uL (1.0-4.8) Monocytes # (Auto) 0.7 x10^3/uL (0.0-1.1) Eosinophils # (Auto) 0.0 x10^3/uL (0.0-0.7) Basophils # (Auto) 0.0 x10^3/uL (0.0-0.2) Sodium Level 139 mmol/L (136-145) Potassium Level 4.0 mmol/L (3.5-5.1) Chloride Level 103 mmol/L (98-107) Carbon Dioxide Level 25 mmol/L (21-32) Anion Gap 11 (6-14) Blood Urea Nitrogen 25 mg/dL (7-20) Creatinine 0.9 mg/dL (0.6-1.0) Estimated GFR (Cockcroft-Gault) 61.5 Glucose Level 230 mg/dL (70-99) Calcium Level 8.6 mg/dL (8.5-10.1) Iron Level 72 ug/dL (50-170) Total Iron Binding Capacity 286 ug/dL (250-450) Iron Saturation 25 % (15-34) 25-Hydroxy Vitamin D Total 40.3 ng/mL (30-100) Glucose (Fingerstick) 179 mg/dL (70-99) Laboratory Tests Test 07/29/18 00:10 07/29/18 11:21 07/29/18 12:05 07/29/18 16:19 Nasal Screen MRSA (PCR) Negative (Negative) Glucose (Fingerstick) 212 mg/dL (70-99) 179 mg/dL (70-99) White Blood Count 7.4 x10^3/uL (4.0-11.0) Red Blood Count 3.35 x10^6/uL (3.50-5.40) Hemoglobin 10.1 g/dL (12.0-15.5) Hematocrit 30.8 % (36.0-47.0) Mean Corpuscular Volume 92 fL (79-100) Mean Corpuscular Hemoglobin 30 pg (25-35) Mean Corpuscular Hemoglobin Concent 33 g/dL (31-37) Red Cell Distribution Width 14.8 % (11.5-14.5) Platelet Count 185 x10^3/uL (140-400) Neutrophils (%) (Auto) 78 % (31-73) Lymphocytes (%) (Auto) 11 % (24-48) Monocytes (%) (Auto) 10 % (0-9) Eosinophils (%) (Auto) 0 % (0-3) Basophils (%) (Auto) 1 % (0-3) Neutrophils # (Auto) 5.8 x10^3uL (1.8-7.7) Lymphocytes # (Auto) 0.8 x10^3/uL (1.0-4.8) Monocytes # (Auto) 0.7 x10^3/uL (0.0-1.1) Eosinophils # (Auto) 0.0 x10^3/uL (0.0-0.7) Basophils # (Auto) 0.0 x10^3/uL (0.0-0.2) Sodium Level 139 mmol/L (136-145) Potassium Level 4.0 mmol/L (3.5-5.1) Chloride Level 103 mmol/L (98-107) Carbon Dioxide Level 25 mmol/L (21-32) Anion Gap 11 (6-14) Blood Urea Nitrogen 25 mg/dL (7-20) Creatinine 0.9 mg/dL (0.6-1.0) Estimated GFR (Cockcroft-Gault) 61.5 Glucose Level 230 mg/dL (70-99) Calcium Level 8.6 mg/dL (8.5-10.1) Iron Level 72 ug/dL (50-170) Total Iron Binding Capacity 286 ug/dL (250-450) Iron Saturation 25 % (15-34) 25-Hydroxy Vitamin D Total 40.3 ng/mL (30-100) Images Images The x-rays show a displaced subtrochanteric femur fracture which is comminuted Assessment/Plan Assessment/Plan S72.21XA Displaced subtrochanteric fracture of right femur, initial encounter for closed fracture. I spoke to the patient and her family about options for treatment. I recommended internal fixation, in this case with a long intramedullary nail. I discussed briefly the option of nonoperative treatment with bedrest but I do not recommend that because of the high risks of bedsores, pneumonia, blood clots, and long- term debility. I discussed the surgery with them along with the potential risks such as nonunion or malunion, need for additional surgery, bleeding, blood clots, neurovascular injury, or other potential surgical or anesthetic complications. I discussed the higher risk subtrochanteric fracture, possibility that the nikunj could break or come loose at a later date, and high risks in this patient because she has diabetes. There is some chance she will require further surgery for example of the nikunj breaks. I explained I have had previous patients with subtrochanteric fractures who ultimately broke the nikunj and required additional surgery. It is a high risk fracture. The plan will be to stabilize this so that she can weight-bear. I will likely keep her toe-touch weightbearing for 6 weeks postoperatively and then advance weightbearing with the plan that she will be back to normal in 4-6 months. She will need to use a walker for several months. Her has had frequent blood clots but she denied any. She denies diabetic neuropathy or loss of sensation. I expect she will do well. She stated understanding of the risks benefits and alternatives. Her family also agreed because she is still a bit confused. Consent was obtained from her family and they agree to proceed without further questions about the surgery. NADJA SAWYER MD July 29, 2018 17:51
--- NOTE | 2018-07-29 19:07 | PDOC4 ---
Operative Note Operative Note Date of Procedure: July 29, 2018 Pre-Op Diagnosis: S72.21XA Displaced subtrochanteric fracture of right femur, initial encounter for closed fracture Post-Op Diagnosis: S72.21XA Displaced subtrochanteric fracture of right femur, initial encounter for closed fracture Procedure: CPT 38964 right hip treatment of intertrochanteric femoral fracture with intramedullary implant, with interlocking screws Surgeon: Nadja Sawyer MD Supervisor Facepiece Line: RIZWANA Paula Anesthesia Type: General EBL: 150 mL Specimens Obtained: none Complications: None Implant Company: [employer] Implants: Gamma 3 system Long Nail Kit R1.5 right 10 mm x 380 mm x 125 Gamma 3 system Lag Screw Titanium 10.5 mm x90 mm; locking screw fully threaded 5 mm x 42.5 mm INDICATION FOR PROCEDURE: This patient is 73 years old, and fell, sustaining a right hip fracture. X-rays show a displaced subtrochanteric hip fracture. The patient, the patient's family, and I discussed the risks, benefits and alternatives of treatment. The alternative for treatment is bedrest, which I generally do not recommend. I recommended intramedullary nailing, and I talked to them about the potential risks of this, including bleeding, infection, blood clots, malunion, nonunion or other potential surgical or anesthetic complications. All of the questions about surgery were answered, and they desired to proceed. A written consent was obtained. PROCEDURE IN DETAIL: The patient was identified in the preoperative holding area. The correct right hip was marked by me. The patient was taken to the operating room, where the patient was anesthetized by the Department of Anesthesia. Preoperative antibiotics were given intravenously. The HANA table was used and the well leg was placed in a padded lithotomy leg solis while the foot of the left leg was placed in a traction foot boot. A time-out procedure was performed. The image intensifier was used, and a preliminary reduction performed. All of the images were interpreted intraoperatively by me, and the image intensifier was used throughout the case. The right hip area was prepared in sterile fashion with ChloraPrep solution and a sterile barrier I[place]an hip drape was used. An incision was made over the superior aspect of the greater trochanter. A 3.2 mm guide pin was placed at the tip of the greater trochanter, and advanced into the intramedullary canal. Due to the unstable subtrochanteric fracture pattern, the reduction was difficult. My orthopaedic physician assistant used a ball spike pusher through a separate incision to maintain the reduction so that the guidewire could be passed, and during all of the intramedullary reaming. The one step conical reamer was used over the guidewire, and a reamer sleeve was used to protect the soft tissues. A long guide pin was placed down the intramedullary canal with my orthopaedic physician assistant holding the fracture reduced, and the length was measured. The nail length was chosen based on that measurement. The canal was sequentially reamed for a long nail until intramedullary chatter occurred, and all of the reaming was done with my orthopaedic physician assistant using the ball spike pusher to maintain the fracture reduction. The nail diameter was chosen based on the intramedullary chatter. The chosen nail was attached to the targeting device with the Nail Holding Screw. The nail was placed down the canal on the targeting device, with my orthopaedic physician assistant maintaining the reduction using a ball spike pusher, and the guide wire was removed. A second incision was now used over the lower part of the greater trochanter, to place a guide pin through the guide, near the center- center position of the femoral head, and measured. The tunnel for the lag screw was reamed using the cannulated Lag Screw Step Drill. The chosen lag screw was inserted using the guide and advanced until there was a low tip-apex distance, by using sequential checks on the image intensifier. Traction on the HANA table was released. A Set Screw was now placed to lock the Lag Screw. Finally, a 5.0 mm diameter Distal Cross Lock Screw was placed distally near the knee, using a freehand technique and the image intensifier, after predrilling. Satisfactory fracture reduction and hardware position was obtained using image intensifier views in multiple planes. Copious irrigation was used and the fascia was closed with #2 Vicryl. Bovie electrocautery was used for hemostasis. I used a multidrug injection for hemostasis and pain relief which includes ropivacaine, epinephrine, and morphine. My orthopaedic physician assistant completed the closure with 2-0 Vicryl and jose maria. A bulky sterile dressing was applied. The patient was gently transferred from the fracture table back to a hospital bed. There were no apparent complications. NADJA SAWYER MD July 29, 2018 19:07
[2018-07-29] MEDS ORDERED: PROCHLORPERAZINE 10 MG/2 ML VIAL. ONE (19:12)
[2018-07-29] MEDS ORDERED: IV RINGERS,LACTATED 1000ML 1,000 ML IV SCH (19:14)
[2018-07-29] MEDS ORDERED: PROCHLORPERAZINE 10 MG/2 ML VIAL. IV PRN (19:15)
[2018-07-29] MEDS ORDERED: MORPHINE SULFATE 2 MG/ML VIAL. IV PRN ×2 (19:15→19:30)
[2018-07-29] MEDS ORDERED: fentaNYL PF VIAL 100 MCG/2 ML VIAL IV PRN ×2 (19:15→19:30)
[2018-07-29] MEDS ORDERED: LIDOCAINE 1% PF 2 ML VIAL. ID PRN (19:15)
[2018-07-29] MEDS ORDERED: HYDROmorphone 2 MG/ML VIAL IV PRN (19:15)
[2018-07-29] MEDS ORDERED: ONDANSETRON PF 4 MG/2 ML VIAL. IV PRN ×2 (19:15→19:30)
[2018-07-29] MEDS: IV 1/2 NORMAL SALINE 1,000 ML IV SCH (19:27)
[2018-07-29] MEDS ORDERED: oxyCODONE IR 5 MG TABLET PO PRN (19:30)
[2018-07-29] MEDS ORDERED: MORPHINE SULFATE 4 MG/ML VIAL. IV PRN (19:30)
[2018-07-29] MEDS ORDERED: HYDROcodone/APAP 7.5/325MG 1 TAB TABLET PO PRN (19:30)
[2018-07-29] MEDS ORDERED: POLYETHYLENE GLYCOL 3350 17 GM PACKET. PO PRN (19:30)
--- NOTE | 2018-07-29 19:55 | NUR ---
This nurse received report from post-op. Pt stable, returned to room with family members at bedside. Patient report no new pain at this moment. Family members had concerns about the patient's care. Concerns address by nursing route rider supervisor Alecia. Will continue to monitor.
[2018-07-29] MEDS: COLESTIPOL HCL 1 GM TABLET PO SCH (20:50)
[2018-07-29] MEDS: ASPIRIN ENTERIC COATED 325 MG TABLET.DR. PO SCH (20:50)
[2018-07-29] MEDS: INSULIN GLARGINE 300 UNITS/3 ML INSULN.PEN. SQ SCH (22:00)
[2018-07-29] MEDS: OXYBUTYNIN CHLORIDE 5 MG TABLET PO SCH (22:00)
[2018-07-29] MEDS: ATORVASTATIN CALCIUM 10 MG TABLET. PO SCH (22:00)
[2018-07-30] VITALS (9 sets, daily range): BP systolic 87–130; BP diastolic 33–101
[2018-07-30] MEDS: fentaNYL PF VIAL 100 MCG/2 ML VIAL IV PRN (00:48)
[2018-07-30] MEDS: HYDROcodone/APAP 7.5/325MG 1 TAB TABLET PO PRN ×4 (01:55→22:26)
[2018-07-30] MEDS ORDERED: MAGNESIUM HYDROXIDE 2,400 MG/30 ML ORAL.SUSP. PO PRN (06:00)
[2018-07-30] MEDS: LEVOTHYROXINE 125 MCG TABLET PO SCH (06:39)
[2018-07-30] MEDS: IV 1/2 NORMAL SALINE 1,000 ML IV SCH (07:58)
[2018-07-30] MEDS: SENNOSIDES/DOCUSATE 8.6/50MG TABLET. PO SCH (08:14)
[2018-07-30] MEDS: glyBURIDE 5 MG TABLET PO SCH ×2 (08:15→17:14)
[2018-07-30] MEDS: MULTIVITAMIN with MINERAL TABLET. PO SCH (08:16)
[2018-07-30] MEDS: OXYBUTYNIN CHLORIDE 5 MG TABLET PO SCH ×2 (08:16→21:00)
[2018-07-30] MEDS: OMEGA-3 FATTY ACIDS/FISH OIL 1,000 MG CAPSULE. PO SCH (08:16)
[2018-07-30] MEDS: ASPIRIN ENTERIC COATED 325 MG TABLET.DR. PO SCH ×2 (08:16→21:00)
[2018-07-30] MEDS: PIOGLITAZONE 15 MG TABLET. PO SCH (08:16)
[2018-07-30] MEDS: COLESTIPOL HCL 1 GM TABLET PO SCH ×2 (08:16→21:00)
[2018-07-30] MEDS: CHOLECALCIFEROL (VITAMIN D3) 1,000 UNIT TABLET PO SCH (08:16)
[2018-07-30] MEDS: PROPRANOLOL 40 MG TABLET. PO SCH (08:17)
[2018-07-30] MEDS: LISINOPRIL 5 MG TABLET. PO SCH (08:17)
[2018-07-30] MEDS: IV NORMAL SALINE 1000ML BAG 1,000 ML IV SCH ×2 (08:20→20:35)
[2018-07-30] MEDS: INSULIN LISPRO 300 UNITS/3 ML INSULN.PEN. SQ SCH ×6 (08:25→17:00)
[2018-07-30] MEDS: NON FORMULARY ITEM (Empagliflozin/Linagliptin (Glyxambi 25 mg-5 mg Tablet) 1 EACH) PO SCH (08:28)
--- NOTE | 2018-07-30 08:51 | PDOC ---
PROGRESS NOTES Chief Complaint Chief Complaint fall acute right hip pain hip fracture Hypothyroidism DM2 HTN Anemia - likely of chronic disease, will check iron, b12 Osteopenia - on calcium and vitamin D, will check D plan to OR this afternoon Restart home meds Lovenox post op History of Present Illness History of Present Illness Ms. Villatoro, is a 73 year old F w/ PMHx DM2, HTN, HLD, osteopenia who presents for fall down stairs. Found by at the bottom of the stairs. Maybe slipped on a piece of cardboard. Reported R hip deformity. Pt was given ketamine for pain en route and she was out hard in the ER. then awake later on the floor and agitated and angry, increased meds given, and then asleep. S/p TFN with screws on 07/29/18. Pain difficult to control, better than prior to surgery. Very tearful today. Vitals Vitals Vital Signs Date Time Temp Pulse Resp B/P (MAP) Pulse Ox O2 Delivery O2 Flow Rate FiO2 07/30/18 08:17 89 124/49 07/30/18 07:39 Room Air 07/30/18 07:00 98.3 16 98 98.3 07/30/18 03:00 2.0 Physical Exam General: Alert, No acute distress Heart: Regular rate Abdomen: Soft Extremities: Other (the right lower extremity has trace diffuse edema. Dorsalis pedis pulse is palpable. She has intact sensation of the toes. She was barely able to dorsiflex and plantarflex the toes, likely decreased due to pain, I do not detect any specific nerve or artery injury.) Skin: No rashes, No breakdown, Other (the skin is intact over the fracture. There was no ecchymosis.) Labs LABS Laboratory Tests Test 07/29/18 11:21 07/29/18 12:05 07/29/18 16:19 07/29/18 19:21 Glucose (Fingerstick) 212 mg/dL (70-99) 179 mg/dL (70-99) 210 mg/dL (70-99) White Blood Count 7.4 x10^3/uL (4.0-11.0) Red Blood Count 3.35 x10^6/uL (3.50-5.40) Hemoglobin 10.1 g/dL (12.0-15.5) Hematocrit 30.8 % (36.0-47.0) Mean Corpuscular Volume 92 fL (79-100) Mean Corpuscular Hemoglobin 30 pg (25-35) Mean Corpuscular Hemoglobin Concent 33 g/dL (31-37) Red Cell Distribution Width 14.8 % (11.5-14.5) Platelet Count 185 x10^3/uL (140-400) Neutrophils (%) (Auto) 78 % (31-73) Lymphocytes (%) (Auto) 11 % (24-48) Monocytes (%) (Auto) 10 % (0-9) Eosinophils (%) (Auto) 0 % (0-3) Basophils (%) (Auto) 1 % (0-3) Neutrophils # (Auto) 5.8 x10^3uL (1.8-7.7) Lymphocytes # (Auto) 0.8 x10^3/uL (1.0-4.8) Monocytes # (Auto) 0.7 x10^3/uL (0.0-1.1) Eosinophils # (Auto) 0.0 x10^3/uL (0.0-0.7) Basophils # (Auto) 0.0 x10^3/uL (0.0-0.2) Sodium Level 139 mmol/L (136-145) Potassium Level 4.0 mmol/L (3.5-5.1) Chloride Level 103 mmol/L (98-107) Carbon Dioxide Level 25 mmol/L (21-32) Anion Gap 11 (6-14) Blood Urea Nitrogen 25 mg/dL (7-20) Creatinine 0.9 mg/dL (0.6-1.0) Estimated GFR (Cockcroft-Gault) 61.5 Glucose Level 230 mg/dL (70-99) Calcium Level 8.6 mg/dL (8.5-10.1) Iron Level 72 ug/dL (50-170) Total Iron Binding Capacity 286 ug/dL (250-450) Iron Saturation 25 % (15-34) Vitamin B12 Level 617 pg/mL (247-911) 25-Hydroxy Vitamin D Total 40.3 ng/mL (30-100) Test 07/29/18 20:38 07/30/18 07:43 Glucose (Fingerstick) 272 mg/dL (70-99) 215 mg/dL (70-99) Assessment and Plan Assessmemt and Plan Problems Medical Problems: (1) Fall Status: Acute (2) Hip fracture, right Status: Acute Comment Review of Relevant I have reviewed the following items emilia (where applicable) has been applied. Labs Laboratory Tests Test 07/28/18 15:20 07/28/18 15:40 07/29/18 00:10 07/29/18 11:21 White Blood Count 8.6 x10^3/uL (4.0-11.0) Red Blood Count 3.60 x10^6/uL (3.50-5.40) Hemoglobin 11.2 g/dL (12.0-15.5) Hematocrit 33.1 % (36.0-47.0) Mean Corpuscular Volume 92 fL (79-100) Mean Corpuscular Hemoglobin 31 pg (25-35) Mean Corpuscular Hemoglobin Concent 34 g/dL (31-37) Red Cell Distribution Width 15.1 % (11.5-14.5) Platelet Count 205 x10^3/uL (140-400) Neutrophils (%) (Auto) 76 % (31-73) Lymphocytes (%) (Auto) 13 % (24-48) Monocytes (%) (Auto) 9 % (0-9) Eosinophils (%) (Auto) 2 % (0-3) Basophils (%) (Auto) 1 % (0-3) Neutrophils # (Auto) 6.5 x10^3uL (1.8-7.7) Lymphocytes # (Auto) 1.1 x10^3/uL (1.0-4.8) Monocytes # (Auto) 0.7 x10^3/uL (0.0-1.1) Eosinophils # (Auto) 0.2 x10^3/uL (0.0-0.7) Basophils # (Auto) 0.1 x10^3/uL (0.0-0.2) Prothrombin Time 12.6 SEC (11.7-14.0) Prothromb Time International Ratio 1.0 (0.8-1.1) Activated Partial Thromboplast Time 30 SEC (24-38) Sodium Level 141 mmol/L (136-145) Potassium Level 3.7 mmol/L (3.5-5.1) Chloride Level 103 mmol/L (98-107) Carbon Dioxide Level 28 mmol/L (21-32) Anion Gap 10 (6-14) Blood Urea Nitrogen 23 mg/dL (7-20) Creatinine 0.9 mg/dL (0.6-1.0) Estimated GFR (Cockcroft-Gault) 61.5 BUN/Creatinine Ratio 26 (6-20) Glucose Level 306 mg/dL (70-99) Calcium Level 9.0 mg/dL (8.5-10.1) Total Bilirubin 0.4 mg/dL (0.2-1.0) Aspartate Amino Transf (AST/SGOT) 15 U/L (15-37) Alanine Aminotransferase (ALT/SGPT) 19 U/L (14-59) Alkaline Phosphatase 60 U/L (46-116) Total Protein 6.6 g/dL (6.4-8.2) Albumin 3.5 g/dL (3.4-5.0) Albumin/Globulin Ratio 1.1 (1.0-1.7) Urine Collection Type Unknown Urine Color Yellow Urine Clarity Clear Urine pH 7.5 Urine Specific [place] 1.020 Urine Protein Negative mg/dL (NEG-TRACE) Urine Glucose (UA) 500 mg/dL (NEG) Urine Ketones (Stick) Trace mg/dL (NEG) Urine Blood Negative (NEG) Urine Nitrite Negative (NEG) Urine Bilirubin Negative (NEG) Urine Urobilinogen Dipstick 0.2 mg/dL (0.2 mg/dL) Urine Leukocyte Esterase Negative (NEG) Urine RBC Occ /HPF (0-2) Urine WBC Occ /HPF (0-4) Urine Squamous Epithelial Cells Few /LPF Urine Bacteria 0 /HPF (0-FEW) Nasal Screen MRSA (PCR) Negative (Negative) Glucose (Fingerstick) 212 mg/dL (70-99) Test 07/29/18 12:05 07/29/18 16:19 07/29/18 19:21 07/29/18 20:38 White Blood Count 7.4 x10^3/uL (4.0-11.0) Red Blood Count 3.35 x10^6/uL (3.50-5.40) Hemoglobin 10.1 g/dL (12.0-15.5) Hematocrit 30.8 % (36.0-47.0) Mean Corpuscular Volume 92 fL (79-100) Mean Corpuscular Hemoglobin 30 pg (25-35) Mean Corpuscular Hemoglobin Concent 33 g/dL (31-37) Red Cell Distribution Width 14.8 % (11.5-14.5) Platelet Count 185 x10^3/uL (140-400) Neutrophils (%) (Auto) 78 % (31-73) Lymphocytes (%) (Auto) 11 % (24-48) Monocytes (%) (Auto) 10 % (0-9) Eosinophils (%) (Auto) 0 % (0-3) Basophils (%) (Auto) 1 % (0-3) Neutrophils # (Auto) 5.8 x10^3uL (1.8-7.7) Lymphocytes # (Auto) 0.8 x10^3/uL (1.0-4.8) Monocytes # (Auto) 0.7 x10^3/uL (0.0-1.1) Eosinophils # (Auto) 0.0 x10^3/uL (0.0-0.7) Basophils # (Auto) 0.0 x10^3/uL (0.0-0.2) Sodium Level 139 mmol/L (136-145) Potassium Level 4.0 mmol/L (3.5-5.1) Chloride Level 103 mmol/L (98-107) Carbon Dioxide Level 25 mmol/L (21-32) Anion Gap 11 (6-14) Blood Urea Nitrogen 25 mg/dL (7-20) Creatinine 0.9 mg/dL (0.6-1.0) Estimated GFR (Cockcroft-Gault) 61.5 Glucose Level 230 mg/dL (70-99) Calcium Level 8.6 mg/dL (8.5-10.1) Iron Level 72 ug/dL (50-170) Total Iron Binding Capacity 286 ug/dL (250-450) Iron Saturation 25 % (15-34) Vitamin B12 Level 617 pg/mL (247-911) 25-Hydroxy Vitamin D Total 40.3 ng/mL (30-100) Glucose (Fingerstick) 179 mg/dL (70-99) 210 mg/dL (70-99) 272 mg/dL (70-99) Test 07/30/18 07:43 Glucose (Fingerstick) 215 mg/dL (70-99) Laboratory Tests Test 07/29/18 11:21 07/29/18 12:05 07/29/18 16:19 07/29/18 19:21 Glucose (Fingerstick) 212 mg/dL (70-99) 179 mg/dL (70-99) 210 mg/dL (70-99) White Blood Count 7.4 x10^3/uL (4.0-11.0) Red Blood Count 3.35 x10^6/uL (3.50-5.40) Hemoglobin 10.1 g/dL (12.0-15.5) Hematocrit 30.8 % (36.0-47.0) Mean Corpuscular Volume 92 fL (79-100) Mean Corpuscular Hemoglobin 30 pg (25-35) Mean Corpuscular Hemoglobin Concent 33 g/dL (31-37) Red Cell Distribution Width 14.8 % (11.5-14.5) Platelet Count 185 x10^3/uL (140-400) Neutrophils (%) (Auto) 78 % (31-73) Lymphocytes (%) (Auto) 11 % (24-48) Monocytes (%) (Auto) 10 % (0-9) Eosinophils (%) (Auto) 0 % (0-3) Basophils (%) (Auto) 1 % (0-3) Neutrophils # (Auto) 5.8 x10^3uL (1.8-7.7) Lymphocytes # (Auto) 0.8 x10^3/uL (1.0-4.8) Monocytes # (Auto) 0.7 x10^3/uL (0.0-1.1) Eosinophils # (Auto) 0.0 x10^3/uL (0.0-0.7) Basophils # (Auto) 0.0 x10^3/uL (0.0-0.2) Sodium Level 139 mmol/L (136-145) Potassium Level 4.0 mmol/L (3.5-5.1) Chloride Level 103 mmol/L (98-107) Carbon Dioxide Level 25 mmol/L (21-32) Anion Gap 11 (6-14) Blood Urea Nitrogen 25 mg/dL (7-20) Creatinine 0.9 mg/dL (0.6-1.0) Estimated GFR (Cockcroft-Gault) 61.5 Glucose Level 230 mg/dL (70-99) Calcium Level 8.6 mg/dL (8.5-10.1) Iron Level 72 ug/dL (50-170) Total Iron Binding Capacity 286 ug/dL (250-450) Iron Saturation 25 % (15-34) Vitamin B12 Level 617 pg/mL (247-911) 25-Hydroxy Vitamin D Total 40.3 ng/mL (30-100) Test 07/29/18 20:38 07/30/18 07:43 Glucose (Fingerstick) 272 mg/dL (70-99) 215 mg/dL (70-99) Medications Current Medications Fentanyl Citrate (Fentanyl 2ml Vial) 100 mcg STK-MED ONCE .ROUTE ; Start 07/28/18 at 15:44; Stop 07/28/18 at 15:45; Status DC Iohexol (Omnipaque 300 Mg/ml) 75 ml 1X ONCE IV Last administered on 07/28/18at 16:22; Start 07/28/18 at 16:15; Stop 07/28/18 at 16:25; Status DC Fentanyl Citrate (Fentanyl 2ml Vial) 50 mcg 1X ONCE IV Last administered on 07/28/18at 16:34; Start 07/28/18 at 16:15; Stop 07/28/18 at 16:25; Status DC Info (CONTRAST GIVEN -- Rx MONITORING) 1 each PRN DAILY PRN MC SEE COMMENTS; Start 07/28/18 at 16:15; Stop 07/30/18 at 16:14 Iohexol (Omnipaque 300 Mg/ml) 100 ml STK-MED ONCE .ROUTE ; Start 07/28/18 at 16:08; Stop 07/28/18 at 16:09; Status DC Ondansetron HCl (Zofran) 4 mg 1X ONCE IV Last administered on 07/28/18at 16:34; Start 07/28/18 at 16:15; Stop 07/28/18 at 16:25; Status DC Ondansetron HCl (Zofran) 4 mg STK-MED ONCE .ROUTE ; Start 07/28/18 at 16:12; Stop 07/28/18 at 16:13; Status DC Fentanyl Citrate (Fentanyl 2ml Vial) 50 mcg 1X ONCE IV Last administered on 07/28/18at 16:44; Start 07/28/18 at 16:45; Stop 07/28/18 at 16:46; Status DC Hydromorphone HCl (Dilaudid) 0.5 mg PRN Q2HR PRN IV BREAKTHROUGH PAIN Last administered on 07/29/18at 14:22; Start 07/28/18 at 17:00 Ropivacaine 53.3 ml/Epinephrine HCl 0.6 mg/ Morphine Sulfate 5 mg/Sodium Chloride 100 ml @ 100 mls/hr 1X ONCE INT ART Last administered on 07/29/18 18:19; Start 07/29/18 at 06:00; Stop 07/29/18 at 07:00; Status DC Fentanyl Citrate (Fentanyl 2ml Vial) 50 mcg PRN Q1HR PRN IV MODERATE PAIN Last administered on 07/30/18at 00:48; Start 07/28/18 at 18:45 Ondansetron HCl (Zofran) 4 mg PRN Q6HRS PRN IV NAUSEA/VOMITING; Start 07/28/18 at 20:15 Fentanyl Citrate (Fentanyl 2ml Vial) 75 mcg PRN Q2HR PRN IV SEVERE PAIN Last administered on 07/28/18at 22:49; Start 07/28/18 at 20:30 Fentanyl Citrate (Fentanyl 2ml Vial) 100 mcg 1X ONCE IV ; Start 07/28/18 at 20:30; Stop 07/28/18 at 20:33; Status DC Sodium Chloride 1,000 ml @ 80 mls/hr [id number] IV Last administered on 07/30/18at 08:20; Start 07/28/18 at 20:30 Ketorolac Tromethamine (Toradol 15mg Vial) 15 mg PRN Q6HRS PRN IV MILD PAIN Last administered on 07/28/18at 22:13; Start 07/28/18 at 21:15; Stop 08/02/18 at 21:14 Insulin Glargine (Lantus) 5 units QHS SQ Last administered on 07/29/18 22:00; Start 07/29/18 at 21:00 Insulin Human Lispro (HumaLOG) 0-7 UNITS TIDWMEALS SQ Last administered on 07/30/18 08:25; Start 07/29/18 at 12:00 Dextrose (Dextrose 50%-Water Syringe) 12.5 gm PRN Q15MIN PRN IV SEE COMMENTS; Start 07/29/18 at 08:30 Glyburide (Diabeta) 10 mg BIDAC PO Last administered on 07/30/18at 08:15; Start 07/29/18 at 16:30 Fish Oil (Fish Oil) 1,000 mg DAILY PO Last administered on 07/30/18at 08:16; Start 07/29/18 at 13:00 Oxybutynin Chloride (Ditropan) 5 mg BID PO Last administered on 07/30/18at 08:16; Start 07/29/18 at 21:00 Multivitamins/ Minerals (I-María Elena) 1 tab DAILY PO ; Start 07/29/18 at 13:00; Stop 07/30/18 at 08:27; Status DC Non-Formulary Medication (Glucosamine Sulfate 2KCL (Glucosamine)) 1,000 mg DAILY PO ; Start 07/30/18 at 09:00; Status UNV Levothyroxine Sodium (Synthroid) 125 mcg DAILY06 PO Last administered on 07/30/18at 06:39; Start 07/29/18 at 15:30 Lisinopril (Prinivil) 5 mg DAILY PO Last administered on 07/30/18at 08:17; Start 07/29/18 at 13:00 Atorvastatin Calcium (Lipitor) 5 mg QHS PO Last administered on 07/29/18at 22:00; Start 07/29/18 at 21:00 Propranolol HCl (Inderal) 40 mg DAILY PO Last administered on 07/30/18at 08:17; Start 07/29/18 at 13:00 Non-Formulary Medication (Selenomethionine (Selenium)) 200 mcg DAILY PO ; Start 07/30/18 at 09:00; Status UNV Cefazolin Sodium/ Dextrose 50 ml @ 100 mls/hr 1X PREOP PRN IV SEE COMMENTS Last administered on 07/29/18at 17:47; Start 07/29/18 at 13:15 Ropivacaine 53.3 ml/Epinephrine HCl 0.6 mg/ Morphine Sulfate 5 mg/Sodium Chloride 100 ml @ 100 mls/hr 1X ONCE INT ART ; Start 07/29/18 at 13:15; Stop 07/29/18 at 14:14; Status DC Sevoflurane (Ultane) 30 ml STK-MED ONCE IH ; Start 07/29/18 at 15:39; Stop 07/29/18 at 15:40; Status DC Dexamethasone Sodium Phosphate (Decadron) 4 mg STK-MED ONCE .ROUTE ; Start 07/29/18 at 15:40; Stop 07/29/18 at 15:41; Status DC Propofol 20 ml @ As Directed STK-MED ONCE IV ; Start 07/29/18 at 15:40; Stop 07/29/18 at 15:41; Status DC Lidocaine HCl (Lidocaine Pf 2% Vial) 5 ml STK-MED ONCE .ROUTE ; Start 07/29/18 at 15:40; Stop 07/29/18 at 15:41; Status DC Ondansetron HCl (Zofran) 4 mg STK-MED ONCE .ROUTE ; Start 07/29/18 at 15:40; Stop 07/29/18 at 15:41; Status DC Phenylephrine HCl (Perfecto-Synephrine Inj) 10 mg STK-MED ONCE .ROUTE ; Start 07/29/18 at 15:40; Stop 07/29/18 at 15:41; Status DC Metoprolol Tartrate (Lopressor Vial) 5 mg STK-MED ONCE IVP ; Start 07/29/18 at 15:52; Stop 07/29/18 at 15:53; Status DC Cefazolin Sodium (Ancef) 1 gm STK-MED ONCE .ROUTE ; Start 07/29/18 at 16:29; Stop 07/29/18 at 16:30; Status DC Cefazolin Sodium (Ancef) 1 gm STK-MED ONCE .ROUTE ; Start 07/29/18 at 16:29; Stop 07/29/18 at 16:30; Status DC Cefazolin Sodium (Ancef) 1 gm STK-MED ONCE .ROUTE ; Start 07/29/18 at 16:29; Stop 07/29/18 at 16:30; Status DC Midazolam HCl (Versed) 2 mg STK-MED ONCE .ROUTE ; Start 07/29/18 at 16:45; Stop 07/29/18 at 16:46; Status DC Midazolam HCl (Versed) 0.5 mg PRN Q10MIN PRN IV anxiety Last administered on 07/29/18at 17:05; Start 07/29/18 at 17:00 Cefazolin Sodium (Ancef) 1 gm STK-MED ONCE .ROUTE ; Start 07/29/18 at 17:17; Stop 07/29/18 at 17:18; Status DC Prochlorperazine Edisylate (Compazine) 10 mg STK-MED ONCE .ROUTE ; Start 07/29/18 at 19:12; Stop 07/29/18 at 19:13; Status DC Ondansetron HCl (Zofran) 4 mg PRN Q6HRS PRN IV NAUSEA/VOMITING; Start 07/29/18 at 19:15; Stop 07/30/18 at 19:14 Fentanyl Citrate (Fentanyl 2ml Vial) 25 mcg PRN Q5MIN PRN IV MILD PAIN 1-3; Start 07/29/18 at 19:15; Stop 07/30/18 at 19:14 Fentanyl Citrate (Fentanyl 2ml Vial) 50 mcg PRN Q5MIN PRN IV MODERATE TO SEVERE PAIN Last administered on 07/29/18at 19:44; Start 07/29/18 at 19:15; Stop 07/30/18 at 19:14 Morphine Sulfate (Morphine Sulfate) 1 mg PRN Q10MIN PRN IV SEVERE PAIN 7-10; Start 07/29/18 at 19:15; Stop 07/30/18 at 19:14 Ringer's Solution 1,000 ml @ 30 mls/hr Q24H IV ; Start 07/29/18 at 19:14; Stop 07/30/18 at 07:13; Status DC Lidocaine HCl (Xylocaine-Mpf 1% 2ml Vial) 2 ml PRN 1X PRN ID PRIOR TO IV START; Start 07/29/18 at 19:15; Stop 07/30/18 at 19:14 Hydromorphone HCl (Dilaudid) 0.5 mg PRN Q10MIN PRN IV SEV PAIN, Second choice; Start 07/29/18 at 19:15; Stop 07/30/18 at 19:14 Prochlorperazine Edisylate (Compazine) 5 mg PACU PRN PRN IV NAUSEA, MRX1 Last administered on 07/29/18at 19:25; Start 07/29/18 at 19:15; Stop 07/30/18 at 19:14 Oxycodone HCl (Roxicodone) 5 mg PRN Q3HRS PRN PO PAIN; Start 07/29/18 at 19:30 Morphine Sulfate (Morphine Sulfate) 2 mg PRN Q1HR PRN IV PAIN; Start 07/29/18 at 19:30 Fentanyl Citrate (Fentanyl 2ml Vial) 25 mcg PRN Q1HR PRN IV PAIN; Start 07/29/18 at 19:30 Multivitamins (Thera M Plus) 1 tab DAILY PO Last administered on 07/30/18at 08:16; Start 07/30/18 at 09:00 Senna/Docusate Sodium (Senna Plus) 1 tab DAILY PO Last administered on 07/30/18at 08:14; Start 07/30/18 at 09:00 Polyethylene Glycol (miraLAX PACKET) 17 gm PRN DAILY PRN PO CONSTIPATION; Start 07/29/18 at 19:30 Vitamin D (Vitamin D3) 1,000 unit DAILY PO Last administered on 07/30/18at 08:16; Start 07/30/18 at 09:00 Sodium Chloride 1,000 ml @ 75 mls/hr [id number] IV ; Start 07/29/18 at 19:27 Ondansetron HCl (Zofran) 4 mg PRN Q4HRS PRN IV NAUSEA/VOMITING; Start 07/29/18 at 19:30 Magnesium Hydroxide (Milk Of Magnesia) 2,400 mg 1X PRN PRN PO CONSTIPATION; Start 07/30/18 at 06:00; Stop 07/31/18 at 05:59 Bisacodyl (Dulcolax Supp) 10 mg 1X PRN PRN MA CONSTIPATION; Start 07/30/18 at 16:00; Stop 07/31/18 at 15:59 Acetaminophen/ Hydrocodone Bitart (Lortab 7.5/325) 1 tab PRN Q4HRS PRN PO PAIN Last administered on 07/30/18at 06:39; Start 07/29/18 at 19:30 Morphine Sulfate (Morphine Sulfate) 4 mg PRN Q2HR PRN IV PAIN; Start 07/29/18 at 19:30 Acetaminophen/ Hydrocodone Bitart (Lortab 7.5/325) 2 tab PRN Q4HRS PRN PO PAIN; Start 07/29/18 at 19:30 Dextrose (Dextrose 50%-Water Syringe) 12.5 gm PRN Q15MIN PRN IV SEE COMMENTS; Start 07/29/18 at 19:30 Cefazolin Sodium/ Dextrose 50 ml @ 100 mls/hr Q6H IV Last administered on 07/30/18at 08:19; Start 07/29/18 at 20:00; Stop 07/30/18 at 08:29; Status DC Aspirin (Ecotrin) 325 mg BID PO Last administered on 07/30/18at 08:16; Start 07/29/18 at 21:00 Colestipol HCl (Colestid) 1 gm BID PO Last administered on 07/30/18at 08:16; Start 07/29/18 at 21:00 Vitamin D (Vitamin D3) 1,000 unit DAILY PO ; Start 07/30/18 at 09:00; Stop 07/30/18 at 09:00; Status DC Non-Formulary Medication (Empagliflozin/ Linagliptin (Glyxambi 25 mg-5 mg Tablet)) 1 each DAILY PO ; Start 07/30/18 at 09:00; Status UNV Metformin HCl (Glucophage) 500 mg BIDWMEALS PO ; Start 07/30/18 at 17:00 Pioglitazone HCl (Actos) 30 mg DAILY PO Last administered on 07/30/18at 08:16; Start 07/30/18 at 09:00 Active Scripts Active Reported Aspirin Ec (Aspirin) 81 Mg Tablet.dr 1 Tab PO DAILY Ocuvite Tablet (Vit A,C & E/Lutein/Minerals) 1 Each Tablet 1 Each PO DAILY Fish Oil 1,000 Mg Capsule ([place]-3 Fatty Acids/Fish Oil) 1 Each Capsule 1 Each PO DAILY Glucosamine (Glucosamine Sulfate 2KCL) 1,000 Mg Tablet 1,000 Mg PO DAILY Selenium (Selenomethionine) 200 Mcg Tablet 200 Mcg PO DAILY Glyxambi 25 mg-5 mg Tablet (Empagliflozin/Linagliptin) 1 Each Tablet 1 Each PO DAILY Oxybutynin Chloride 5 Mg Tablet 5 Mg PO BID Multivitamins (Multivitamin) 1 Each Tablet 1 Tab PO DAILY Metformin Hcl 500 Mg Tablet 500 Mg PO BIDWMEALS Calcium + Vitamin D Tablet (Calcium Carbonate/Vitamin D3) 1 Each Tablet 1 Each PO DAILY Colestid (Colestipol Hcl) 1 Gm Tablet 1 Gm PO BID Actos (Pioglitazone Hcl) 30 Mg Tablet 30 Mg PO DAILY Lisinopril 5 Mg Tablet 5 Mg PO DAILY Lovastatin 20 Mg Tablet 10 Mg PO DAILY Propranolol Hcl 40 Mg Tablet 40 Mg PO DAILY Levothyroxine Sodium 125 Mcg Tablet 125 Mcg PO DAILYAC Glyburide 5 Mg Tablet 10 Mg PO BID Vitals/I & O Vital Sign - Last 24 Hours 07/29/18 07/29/18 07/29/18 07/29/18 11:00 11:57 14:22 14:52 Temp 98.1 98.1 Pulse 84 Resp 18 B/P (MAP) 118/55 (76) Pulse Ox 100 100 95 O2 Delivery Nasal Cannula Nasal Cannula Nasal Cannula Nasal Cannula O2 Flow Rate 2.0 3.0 3.0 2.0 07/29/18 07/29/18 07/29/18 07/29/18 15:00 16:15 16:21 19:18 Temp 98.6 99.6 97.8 98.6 99.6 97.8 Pulse 81 86 90 Resp 18 20 20 18 B/P (MAP) 107/50 (69) 123/59 111/61 Pulse Ox 95 98 96 O2 Delivery Nasal Cannula Nasal Cannula Nasal Cannula Simple Mask O2 Flow Rate 2.0 2.0 2 8 07/29/18 07/29/18 07/29/18 07/29/18 19:18 19:25 19:33 19:44 Pulse 98 Resp 20 22 20 B/P (MAP) 133/60 Pulse Ox 96 96 96 O2 Delivery Mask Nasal Cannula Nasal Cannula Nasal Cannula O2 Flow Rate 8 4.0 4 4.0 07/29/18 07/29/18 07/29/18 07/29/18 19:48 19:50 19:50 19:55 Temp 97.8 97.7 97.8 97.7 Pulse 94 92 Resp 20 18 B/P (MAP) 110/60 113/43 (66) Pulse Ox 96 96 O2 Delivery Nasal Cannula Nasal Cannula Nasal Cannula Nasal Cannula O2 Flow Rate 4 2.0 4 2.0 07/29/18 07/29/18 07/29/18 07/29/18 20:00 20:09 20:24 20:51 B/P (MAP) 107/44 (65) 107/44 (65) 105/52 (69) O2 Delivery Nasal Cannula O2 Flow Rate 2.0 07/29/18 07/29/18 07/29/18 07/30/18 21:24 22:00 23:00 00:48 Temp 97.8 97.8 Pulse 98 98 101 Resp 18 B/P (MAP) 115/55 (75) 120/73 (89) 121/52 (75) Pulse Ox 94 O2 Delivery Nasal Cannula Nasal Cannula O2 Flow Rate 2.0 2.0 07/30/18 07/30/18 07/30/18 07/30/18 01:18 01:55 02:55 03:00 Temp 98.3 98.3 Pulse 83 Resp 18 B/P (MAP) 105/51 (69) Pulse Ox 93 O2 Delivery Nasal Cannula Nasal Cannula Nasal Cannula O2 Flow Rate 2.0 2.0 2.0 2.0 07/30/18 07/30/18 07/30/18 07/30/18 06:39 07:00 07:31 07:39 Temp 98.3 98.3 Pulse 89 Resp 16 B/P (MAP) 124/49 (74) Pulse Ox 98 O2 Delivery Room Air Room Air Room Air Room Air 07/30/18 07/30/18 08:17 08:17 Pulse 89 89 B/P (MAP) 124/49 124/49 Intake and Output 07/29/18 07/29/18 07/30/18 14:59 22:59 06:59 Intake Total 900 ml 150 ml Output Total 1040 ml 600 ml Balance -140 ml -450 ml KAREN PADILLA MD July 30, 2018 08:51
[2018-07-30] MEDS ORDERED: CHOLECALCIFEROL (VITAMIN D3) 1,000 UNIT TABLET PO SCH (09:00)
[2018-07-30] MEDS ORDERED: NON FORMULARY ITEM (Glucosamine Sulfate 2KCL (Glucosamine) 1,000 MG) PO SCH (09:00)
[2018-07-30] MEDS ORDERED: SELENOMETHIONINE 200 MCG PO SCH (09:00)
[2018-07-30 09:30] LABS: HEMOGLOBIN 7.7 g/dL (12.0-15.5)
[2018-07-30] MEDS: HYDROmorphone 2 MG/ML VIAL IV PRN (10:58)
[2018-07-30] MEDS ORDERED: IV RINGERS,LACTATED 500ML 1,000 ML IV ONE (11:30)
--- NOTE | 2018-07-30 15:38 | NUR ---
Rechecked patients blood pressure and it was 85/41 pulse 66, notified Dr. Rogers, no new orders received. Check blood pressure at next scheduled time.
--- NOTE | 2018-07-30 15:44 | NUR ---
SW following for discharge planning. Discussed with RN, pt's blood pressure down today. SW met with pt and pt's family at bedside, pt was asleep. SW discussed OT recommending SNU. Pt's boyfriend advised pt likely would not be in agreement with SNU and wants to go home. SW to meet with pt when pt is more alert. RN notified.
[2018-07-30] MEDS ORDERED: BISACODYL 10 MG SUPP.RECT. PR PRN (16:00)
[2018-07-30] MEDS: metFORMIN 500 MG TABLET PO SCH (17:14)
[2018-07-30] MEDS ORDERED: diphenhydrAMINE HCL 25 MG CAPSULE PO PRN (17:15)
[2018-07-30] MEDS ORDERED: diphenhydrAMINE ORAL ELIXIR 12.5 MG/5 ML ML PO PRN (17:15)
--- NOTE | 2018-07-30 18:21 | PDOC ---
PROGRESS NOTES Subjective Subjective late entry, patient seen in AM. Some hip pain as expected, but feels better than preop Objective Vital Signs Vital Signs Date Time Temp Pulse Resp B/P (MAP) Pulse Ox O2 Delivery O2 Flow Rate FiO2 07/30/18 17:23 84 130/101 (111) 07/30/18 17:20 94 Room Air 07/30/18 11:38 2.0 07/30/18 11:00 98.1 16 98.1 Physical Exam Dressings dry. Thigh and calf soft and nontender. Alignment appears anatomic. Able to DF/PF foot and toes. Sensation and cap refill normal at foot. Labs Laboratory Tests Test 07/29/18 00:10 07/29/18 11:21 07/29/18 12:05 07/29/18 16:19 Nasal Screen MRSA (PCR) Negative (Negative) Glucose (Fingerstick) 212 mg/dL (70-99) 179 mg/dL (70-99) White Blood Count 7.4 x10^3/uL (4.0-11.0) Red Blood Count 3.35 x10^6/uL (3.50-5.40) Hemoglobin 10.1 g/dL (12.0-15.5) Hematocrit 30.8 % (36.0-47.0) Mean Corpuscular Volume 92 fL (79-100) Mean Corpuscular Hemoglobin 30 pg (25-35) Mean Corpuscular Hemoglobin Concent 33 g/dL (31-37) Red Cell Distribution Width 14.8 % (11.5-14.5) Platelet Count 185 x10^3/uL (140-400) Neutrophils (%) (Auto) 78 % (31-73) Lymphocytes (%) (Auto) 11 % (24-48) Monocytes (%) (Auto) 10 % (0-9) Eosinophils (%) (Auto) 0 % (0-3) Basophils (%) (Auto) 1 % (0-3) Neutrophils # (Auto) 5.8 x10^3uL (1.8-7.7) Lymphocytes # (Auto) 0.8 x10^3/uL (1.0-4.8) Monocytes # (Auto) 0.7 x10^3/uL (0.0-1.1) Eosinophils # (Auto) 0.0 x10^3/uL (0.0-0.7) Basophils # (Auto) 0.0 x10^3/uL (0.0-0.2) Sodium Level 139 mmol/L (136-145) Potassium Level 4.0 mmol/L (3.5-5.1) Chloride Level 103 mmol/L (98-107) Carbon Dioxide Level 25 mmol/L (21-32) Anion Gap 11 (6-14) Blood Urea Nitrogen 25 mg/dL (7-20) Creatinine 0.9 mg/dL (0.6-1.0) Estimated GFR (Cockcroft-Gault) 61.5 Glucose Level 230 mg/dL (70-99) Calcium Level 8.6 mg/dL (8.5-10.1) Iron Level 72 ug/dL (50-170) Total Iron Binding Capacity 286 ug/dL (250-450) Iron Saturation 25 % (15-34) Vitamin B12 Level 617 pg/mL (247-911) 25-Hydroxy Vitamin D Total 40.3 ng/mL (30-100) Test 07/29/18 19:21 07/29/18 20:38 07/30/18 07:43 07/30/18 08:43 Glucose (Fingerstick) 210 mg/dL (70-99) 272 mg/dL (70-99) 215 mg/dL (70-99) Hemoglobin 7.7 g/dL (12.0-15.5) Hematocrit 23.0 % (36.0-47.0) Mean Corpuscular Hemoglobin Concent 34 g/dL (31-37) 25-Hydroxy Vitamin D Total 42.0 ng/mL (30-100) Test 07/30/18 11:22 07/30/18 16:56 Glucose (Fingerstick) 255 mg/dL (70-99) 134 mg/dL (70-99) Laboratory Tests Test 07/29/18 19:21 07/29/18 20:38 07/30/18 07:43 07/30/18 08:43 Glucose (Fingerstick) 210 mg/dL (70-99) 272 mg/dL (70-99) 215 mg/dL (70-99) Hemoglobin 7.7 g/dL (12.0-15.5) Hematocrit 23.0 % (36.0-47.0) Mean Corpuscular Hemoglobin Concent 34 g/dL (31-37) 25-Hydroxy Vitamin D Total 42.0 ng/mL (30-100) Test 07/30/18 11:22 07/30/18 16:56 Glucose (Fingerstick) 255 mg/dL (70-99) 134 mg/dL (70-99) Assessment Assessment POD #1 after right hip intramedullary nail for subtrochanteric fracture Plan Plan of Care DVT prophylaxis, aspirin twice a day for 30 days is satisfactory from my standpoint. Mobilization, but limited to 50% weightbearing for 6 weeks. Discharge planning likely for tomorrow or Friday. Hemoglobin was 7.7 today. This is acute blood loss anemia, as a result of the fracture and the necessary treatment. NADJA SAWYER MD July 30, 2018 18:21
[2018-07-30] MEDS: ATORVASTATIN CALCIUM 10 MG TABLET. PO SCH (21:00)
[2018-07-30] MEDS: INSULIN GLARGINE 300 UNITS/3 ML INSULN.PEN. SQ SCH (22:34)
[2018-07-31] VITALS (7 sets, daily range): BP systolic 92–138; BP diastolic 49–69
[2018-07-31] MEDS: IV NORMAL SALINE 1000ML BAG 1,000 ML IV SCH ×3 (03:09→21:03)
[2018-07-31] MEDS: LEVOTHYROXINE 125 MCG TABLET PO SCH (05:36)
[2018-07-31] MEDS: HYDROcodone/APAP 7.5/325MG 1 TAB TABLET PO PRN ×3 (05:37→18:35)
[2018-07-31] MEDS: INSULIN LISPRO 300 UNITS/3 ML INSULN.PEN. SQ SCH ×6 (07:30→16:49)
[2018-07-31] MEDS: metFORMIN 500 MG TABLET PO SCH ×2 (08:18→15:51)
[2018-07-31] MEDS: ASPIRIN ENTERIC COATED 325 MG TABLET.DR. PO SCH ×2 (08:18→21:04)
[2018-07-31] MEDS: glyBURIDE 5 MG TABLET PO SCH ×2 (08:18→15:50)
[2018-07-31] MEDS: PIOGLITAZONE 15 MG TABLET. PO SCH (08:18)
[2018-07-31] MEDS: OMEGA-3 FATTY ACIDS/FISH OIL 1,000 MG CAPSULE. PO SCH (08:18)
[2018-07-31] MEDS: MULTIVITAMIN with MINERAL TABLET. PO SCH (08:18)
[2018-07-31] MEDS: COLESTIPOL HCL 1 GM TABLET PO SCH ×2 (08:18→21:04)
[2018-07-31] MEDS: OXYBUTYNIN CHLORIDE 5 MG TABLET PO SCH ×2 (08:18→21:04)
[2018-07-31] MEDS: CHOLECALCIFEROL (VITAMIN D3) 1,000 UNIT TABLET PO SCH (08:18)
[2018-07-31] MEDS: SENNOSIDES/DOCUSATE 8.6/50MG TABLET. PO SCH (08:18)
[2018-07-31] MEDS: LISINOPRIL 5 MG TABLET. PO SCH (08:19)
[2018-07-31] MEDS: PROPRANOLOL 40 MG TABLET. PO SCH (08:19)
[2018-07-31] MEDS: NON FORMULARY ITEM (Empagliflozin/Linagliptin (Glyxambi 25 mg-5 mg Tablet) 1 EACH) PO SCH (08:22)
[2018-07-31] MEDS: busPIRone 5 MG TABLET. PO SCH ×3 (09:38→21:05)
--- NOTE | 2018-07-31 10:20 | PDOC ---
PROGRESS NOTES Chief Complaint Chief Complaint fall acute right hip pain hip fracture Hypothyroidism DM2 HTN Anemia - likely of chronic disease, will check iron, b12 Osteopenia - on calcium and vitamin D, will check D pod # 2 Restart home meds Lovenox post op iv pain control prn PT/OT History of Present Illness History of Present Illness Ms. Villatoro, is a 73 year old F w/ PMHx DM2, HTN, HLD, osteopenia who presents for fall down stairs. Found by at the bottom of the stairs. Maybe slipped on a piece of cardboard. Reported R hip deformity. Pt was given ketamine for pain en route and she was out hard in the ER. then awake later on the floor and agitated and angry, increased meds given, and then asleep. S/p TFN with screws on 07/29/18. Pain difficult to control, better than prior to surgery. Very tearful today. Vitals Vitals Vital Signs Date Time Temp Pulse Resp B/P (MAP) Pulse Ox O2 Delivery O2 Flow Rate FiO2 07/31/18 09:39 Room Air 07/31/18 08:19 76 113/55 07/31/18 07:00 99.3 18 90 99.3 07/30/18 11:38 2.0 Physical Exam General: Alert, No acute distress Heart: Regular rate Abdomen: Soft Extremities: Other (the right lower extremity has trace diffuse edema. Dorsalis pedis pulse is palpable. She has intact sensation of the toes. She was barely able to dorsiflex and plantarflex the toes, likely decreased due to pain, I do not detect any specific nerve or artery injury.) Skin: No rashes, No breakdown, Other (the skin is intact over the fracture. There was no ecchymosis.) Labs LABS Operative Note Operative Note Operative Note Date of Procedure: July 29, 2018 Pre-Op Diagnosis: S72.21XA Displaced subtrochanteric fracture of right femur, initial encounter for closed fracture Post-Op Diagnosis: S72.21XA Displaced subtrochanteric fracture of right femur, initial encounter for closed fracture Procedure: CPT 90668 right hip treatment of intertrochanteric femoral fracture with intramedullary implant, with interlocking screws Surgeon: Kp Dasilva MD Cyber Security Architect: RIZWANA Paula Anesthesia Type: General EBL: 150 mL Specimens Obtained: none Complications: None Implant Company: [employer] Implants: Gamma 3 system Long Nail Kit R1.5 right 10 mm x 380 mm x 125 Gamma 3 system Lag Screw Titanium 10.5 mm x90 mm; locking screw fully threaded 5 mm x 42.5 mm Laboratory Tests Test 07/30/18 11:22 07/30/18 16:56 07/30/18 21:09 07/31/18 07:35 Glucose (Fingerstick) 255 mg/dL (70-99) 134 mg/dL (70-99) 150 mg/dL (70-99) 121 mg/dL (70-99) Assessment and Plan Assessmemt and Plan Problems Medical Problems: (1) Fall Status: Acute (2) Hip fracture, right Status: Acute Comment Review of Relevant I have reviewed the following items emilia (where applicable) has been applied. Labs Laboratory Tests Test 07/29/18 11:21 07/29/18 12:05 07/29/18 16:19 07/29/18 19:21 Glucose (Fingerstick) 212 mg/dL (70-99) 179 mg/dL (70-99) 210 mg/dL (70-99) White Blood Count 7.4 x10^3/uL (4.0-11.0) Red Blood Count 3.35 x10^6/uL (3.50-5.40) Hemoglobin 10.1 g/dL (12.0-15.5) Hematocrit 30.8 % (36.0-47.0) Mean Corpuscular Volume 92 fL (79-100) Mean Corpuscular Hemoglobin 30 pg (25-35) Mean Corpuscular Hemoglobin Concent 33 g/dL (31-37) Red Cell Distribution Width 14.8 % (11.5-14.5) Platelet Count 185 x10^3/uL (140-400) Neutrophils (%) (Auto) 78 % (31-73) Lymphocytes (%) (Auto) 11 % (24-48) Monocytes (%) (Auto) 10 % (0-9) Eosinophils (%) (Auto) 0 % (0-3) Basophils (%) (Auto) 1 % (0-3) Neutrophils # (Auto) 5.8 x10^3uL (1.8-7.7) Lymphocytes # (Auto) 0.8 x10^3/uL (1.0-4.8) Monocytes # (Auto) 0.7 x10^3/uL (0.0-1.1) Eosinophils # (Auto) 0.0 x10^3/uL (0.0-0.7) Basophils # (Auto) 0.0 x10^3/uL (0.0-0.2) Sodium Level 139 mmol/L (136-145) Potassium Level 4.0 mmol/L (3.5-5.1) Chloride Level 103 mmol/L (98-107) Carbon Dioxide Level 25 mmol/L (21-32) Anion Gap 11 (6-14) Blood Urea Nitrogen 25 mg/dL (7-20) Creatinine 0.9 mg/dL (0.6-1.0) Estimated GFR (Cockcroft-Gault) 61.5 Glucose Level 230 mg/dL (70-99) Calcium Level 8.6 mg/dL (8.5-10.1) Iron Level 72 ug/dL (50-170) Total Iron Binding Capacity 286 ug/dL (250-450) Iron Saturation 25 % (15-34) Vitamin B12 Level 617 pg/mL (247-911) 25-Hydroxy Vitamin D Total 40.3 ng/mL (30-100) Test 07/29/18 20:38 07/30/18 07:43 07/30/18 08:43 07/30/18 11:22 Glucose (Fingerstick) 272 mg/dL (70-99) 215 mg/dL (70-99) 255 mg/dL (70-99) Hemoglobin 7.7 g/dL (12.0-15.5) Hematocrit 23.0 % (36.0-47.0) Mean Corpuscular Hemoglobin Concent 34 g/dL (31-37) 25-Hydroxy Vitamin D Total 42.0 ng/mL (30-100) Test 07/30/18 16:56 07/30/18 21:09 07/31/18 07:35 Glucose (Fingerstick) 134 mg/dL (70-99) 150 mg/dL (70-99) 121 mg/dL (70-99) Laboratory Tests Test 07/30/18 11:22 07/30/18 16:56 07/30/18 21:09 07/31/18 07:35 Glucose (Fingerstick) 255 mg/dL (70-99) 134 mg/dL (70-99) 150 mg/dL (70-99) 121 mg/dL (70-99) Medications Current Medications Fentanyl Citrate (Fentanyl 2ml Vial) 100 mcg STK-MED ONCE .ROUTE ; Start 07/28/18 at 15:44; Stop 07/28/18 at 15:45; Status DC Iohexol (Omnipaque 300 Mg/ml) 75 ml 1X ONCE IV Last administered on 07/28/18at 16:22; Start 07/28/18 at 16:15; Stop 07/28/18 at 16:25; Status DC Fentanyl Citrate (Fentanyl 2ml Vial) 50 mcg 1X ONCE IV Last administered on 07/28/18at 16:34; Start 07/28/18 at 16:15; Stop 07/28/18 at 16:25; Status DC Info (CONTRAST GIVEN -- Rx MONITORING) 1 each PRN DAILY PRN MC SEE COMMENTS; Start 07/28/18 at 16:15; Stop 07/30/18 at 16:14; Status DC Iohexol (Omnipaque 300 Mg/ml) 100 ml STK-MED ONCE .ROUTE ; Start 07/28/18 at 16:08; Stop 07/28/18 at 16:09; Status DC Ondansetron HCl (Zofran) 4 mg 1X ONCE IV Last administered on 07/28/18at 16:34; Start 07/28/18 at 16:15; Stop 07/28/18 at 16:25; Status DC Ondansetron HCl (Zofran) 4 mg STK-MED ONCE .ROUTE ; Start 07/28/18 at 16:12; Stop 07/28/18 at 16:13; Status DC Fentanyl Citrate (Fentanyl 2ml Vial) 50 mcg 1X ONCE IV Last administered on 07/28/18at 16:44; Start 07/28/18 at 16:45; Stop 07/28/18 at 16:46; Status DC Hydromorphone HCl (Dilaudid) 0.5 mg PRN Q2HR PRN IV SEVERE PAIN LAST CHOICE Last administered on 07/30/18at 10:58; Start 07/28/18 at 17:00 Ropivacaine 53.3 ml/Epinephrine HCl 0.6 mg/ Morphine Sulfate 5 mg/Sodium Chloride 100 ml @ 100 mls/hr 1X ONCE INT ART Last administered on 07/29/18 18:19; Start 07/29/18 at 06:00; Stop 07/29/18 at 07:00; Status DC Fentanyl Citrate (Fentanyl 2ml Vial) 50 mcg PRN Q1HR PRN IV SEVERE PAIN Last administered on 07/30/18at 00:48; Start 07/28/18 at 18:45 Ondansetron HCl (Zofran) 4 mg PRN Q6HRS PRN IV NAUSEA/VOMITING; Start 07/28/18 at 20:15; Stop 07/30/18 at 08:52; Status DC Fentanyl Citrate (Fentanyl 2ml Vial) 75 mcg PRN Q2HR PRN IV SEVERE PAIN 7-10 Last administered on 07/28/18at 22:49; Start 07/28/18 at 20:30 Fentanyl Citrate (Fentanyl 2ml Vial) 100 mcg 1X ONCE IV ; Start 07/28/18 at 20:30; Stop 07/28/18 at 20:33; Status DC Sodium Chloride 1,000 ml @ 125 mls/hr Q8H IV Last administered on 07/31/18at 03:09; Start 07/28/18 at 20:30 Ketorolac Tromethamine (Toradol 15mg Vial) 15 mg PRN Q6HRS PRN IV MILD PAIN Last administered on 07/28/18at 22:13; Start 07/28/18 at 21:15; Stop 08/02/18 at 21:14 Insulin Glargine (Lantus) 5 units QHS SQ Last administered on 07/30/18at 22:34; Start 07/29/18 at 21:00 Insulin Human Lispro (HumaLOG) 0-7 UNITS TIDWMEALS SQ Last administered on 07/30/18at 11:50; Start 07/29/18 at 12:00 Dextrose (Dextrose 50%-Water Syringe) 12.5 gm PRN Q15MIN PRN IV SEE COMMENTS; Start 07/29/18 at 08:30 Glyburide (Diabeta) 10 mg BIDAC PO Last administered on 07/31/18at 08:18; Start 07/29/18 at 16:30 Fish Oil (Fish Oil) 1,000 mg DAILY PO Last administered on 07/31/18at 08:18; S tart 07/29/18 at 13:00 Oxybutynin Chloride (Ditropan) 5 mg BID PO Last administered on 07/31/18at 08:18; Start 07/29/18 at 21:00 Multivitamins/ Minerals (I-María Elena) 1 tab DAILY PO ; Start 07/29/18 at 13:00; Stop 07/30/18 at 08:27; Status DC Non-Formulary Medication (Glucosamine Sulfate 2KCL (Glucosamine)) 1,000 mg DAILY PO ; Start 07/30/18 at 09:00; Status UNV Levothyroxine Sodium (Synthroid) 125 mcg DAILY06 PO Last administered on 07/31/18at 05:36; Start 07/29/18 at 15:30 Lisinopril (Prinivil) 5 mg DAILY PO Last administered on 07/31/18at 08:19; Start 07/29/18 at 13:00 Atorvastatin Calcium (Lipitor) 5 mg QHS PO Last administered on 07/30/18at 21:00; Start 07/29/18 at 21:00 Propranolol HCl (Inderal) 40 mg DAILY PO Last administered on 07/31/18at 08:19; Start 07/29/18 at 13:00 Non-Formulary Medication (Selenomethionine (Selenium)) 200 mcg DAILY PO ; Start 07/30/18 at 09:00; Status UNV Cefazolin Sodium/ Dextrose 50 ml @ 100 mls/hr 1X PREOP PRN IV SEE COMMENTS Last administered on 07/29/18at 17:47; Start 07/29/18 at 13:15; Stop 07/30/18 at 08:53; Status DC Ropivacaine 53.3 ml/Epinephrine HCl 0.6 mg/ Morphine Sulfate 5 mg/Sodium Chloride 100 ml @ 100 mls/hr 1X ONCE INT ART ; Start 07/29/18 at 13:15; Stop 07/29/18 at 14:14; Status DC Sevoflurane (Ultane) 30 ml STK-MED ONCE IH ; Start 07/29/18 at 15:39; Stop 07/29/18 at 15:40; Status DC Dexamethasone Sodium Phosphate (Decadron) 4 mg STK-MED ONCE .ROUTE ; Start 07/29/18 at 15:40; Stop 07/29/18 at 15:41; Status DC Propofol 20 ml @ As Directed STK-MED ONCE IV ; Start 07/29/18 at 15:40; Stop 07/29/18 at 15:41; Status DC Lidocaine HCl (Lidocaine Pf 2% Vial) 5 ml STK-MED ONCE .ROUTE ; Start 07/29/18 at 15:40; Stop 07/29/18 at 15:41; Status DC Ondansetron HCl (Zofran) 4 mg STK-MED ONCE .ROUTE ; Start 07/29/18 at 15:40; Stop 07/29/18 at 15:41; Status DC Phenylephrine HCl (Perfecto-Synephrine Inj) 10 mg STK-MED ONCE .ROUTE ; Start 07/29/18 at 15:40; Stop 07/29/18 at 15:41; Status DC Metoprolol Tartrate (Lopressor Vial) 5 mg STK-MED ONCE IVP ; Start 07/29/18 at 15:52; Stop 07/29/18 at 15:53; Status DC Cefazolin Sodium (Ancef) 1 gm STK-MED ONCE .ROUTE ; Start 07/29/18 at 16:29; Stop 07/29/18 at 16:30; Status DC Cefazolin Sodium (Ancef) 1 gm STK-MED ONCE .ROUTE ; Start 07/29/18 at 16:29; Stop 07/29/18 at 16:30; Status DC Cefazolin Sodium (Ancef) 1 gm STK-MED ONCE .ROUTE ; Start 07/29/18 at 16:29; Stop 07/29/18 at 16:30; Status DC Midazolam HCl (Versed) 2 mg STK-MED ONCE .ROUTE ; Start 07/29/18 at 16:45; Stop 07/29/18 at 16:46; Status DC Midazolam HCl (Versed) 0.5 mg PRN Q10MIN PRN IV anxiety Last administered on 07/29/18at 17:05; Start 07/29/18 at 17:00; Stop 07/30/18 at 08:52; Status DC Cefazolin Sodium (Ancef) 1 gm STK-MED ONCE .ROUTE ; Start 07/29/18 at 17:17; Stop 07/29/18 at 17:18; Status DC Prochlorperazine Edisylate (Compazine) 10 mg STK-MED ONCE .ROUTE ; Start 07/29/18 at 19:12; Stop 07/29/18 at 19:13; Status DC Ondansetron HCl (Zofran) 4 mg PRN Q6HRS PRN IV NAUSEA/VOMITING; Start 07/29/18 at 19:15; Stop 07/30/18 at 08:52; Status DC Fentanyl Citrate (Fentanyl 2ml Vial) 25 mcg PRN Q5MIN PRN IV MILD PAIN 1-3; Start 07/29/18 at 19:15; Stop 07/30/18 at 08:52; Status DC Fentanyl Citrate (Fentanyl 2ml Vial) 50 mcg PRN Q5MIN PRN IV MODERATE TO SEVERE PAIN Last administered on 07/29/18at 19:44; Start 07/29/18 at 19:15; Stop 07/30/18 at 08:53; Status DC Morphine Sulfate (Morphine Sulfate) 1 mg PRN Q10MIN PRN IV SEVERE PAIN 7-10; Start 07/29/18 at 19:15; Stop 07/30/18 at 08:53; Status DC Ringer's Solution 1,000 ml @ 30 mls/hr Q24H IV ; Start 07/29/18 at 19:14; Stop 07/30/18 at 07:13; Status DC Lidocaine HCl (Xylocaine-Mpf 1% 2ml Vial) 2 ml PRN 1X PRN ID PRIOR TO IV START; Start 07/29/18 at 19:15; Stop 07/30/18 at 08:53; Status DC Hydromorphone HCl (Dilaudid) 0.5 mg PRN Q10MIN PRN IV SEV PAIN, Second choice; Start 07/29/18 at 19:15; Stop 07/30/18 at 08:53; Status DC Prochlorperazine Edisylate (Compazine) 5 mg PACU PRN PRN IV NAUSEA, MRX1 Last administered on 07/29/18at 19:25; Start 07/29/18 at 19:15; Stop 07/30/18 at 08:53; Status DC Oxycodone HCl (Roxicodone) 5 mg PRN Q3HRS PRN PO PAIN; Start 07/29/18 at 19:30 Morphine Sulfate (Morphine Sulfate) 2 mg PRN Q1HR PRN IV PAIN; Start 07/29/18 at 19:30 Fentanyl Citrate (Fentanyl 2ml Vial) 25 mcg PRN Q1HR PRN IV PAIN; Start 07/29/18 at 19:30 Multivitamins (Thera M Plus) 1 tab DAILY PO Last administered on 07/31/18at 08:18; Start 07/30/18 at 09:00 Senna/Docusate Sodium (Senna Plus) 1 tab DAILY PO Last administered on 07/31/18at 08:18; Start 07/30/18 at 09:00 Polyethylene Glycol (miraLAX PACKET) 17 gm PRN DAILY PRN PO CONSTIPATION; Start 07/29/18 at 19:30 Vitamin D (Vitamin D3) 1,000 unit DAILY PO Last administered on 07/31/18at 08:18; Start 07/30/18 at 09:00 Sodium Chloride 1,000 ml @ 75 mls/hr [id number] IV ; Start 07/29/18 at 19:27; Stop 07/30/18 at 09:51; Status DC Ondansetron HCl (Zofran) 4 mg PRN Q4HRS PRN IV NAUSEA/VOMITING; Start 07/29/18 at 19:30 Magnesium Hydroxide (Milk Of Magnesia) 2,400 mg 1X PRN PRN PO CONSTIPATION; Start 07/30/18 at 06:00; Stop 07/31/18 at 05:59; Status DC Bisacodyl (Dulcolax Supp) 10 mg 1X PRN PRN VT CONSTIPATION; Start 07/30/18 at 16:00; Stop 07/31/18 at 15:59 Acetaminophen/ Hydrocodone Bitart (Lortab 7.5/325) 1 tab PRN Q4HRS PRN PO PAIN Last administered on 07/31/18at 09:39; Start 07/29/18 at 19:30 Morphine Sulfate (Morphine Sulfate) 4 mg PRN Q2HR PRN IV PAIN; Start 07/29/18 at 19:30 Acetaminophen/ Hydrocodone Bitart (Lortab 7.5/325) 2 tab PRN Q4HRS PRN PO PAIN; Start 07/29/18 at 19:30 Dextrose (Dextrose 50%-Water Syringe) 12.5 gm PRN Q15MIN PRN IV SEE COMMENTS; Start 07/29/18 at 19:30; Status Cancel Cefazolin Sodium/ Dextrose 50 ml @ 100 mls/hr Q6H IV Last administered on 07/30/18at 08:19; Start 07/29/18 at 20:00; Stop 07/30/18 at 08:29; Status DC Aspirin (Ecotrin) 325 mg BID PO Last administered on 07/31/18at 08:18; Start 07/29/18 at 21:00 Colestipol HCl (Colestid) 1 gm BID PO Last administered on 07/31/18at 08:18; Start 07/29/18 at 21:00 Vitamin D (Vitamin D3) 1,000 unit DAILY PO ; Start 07/30/18 at 09:00; Stop 07/30/18 at 09:00; Status DC Non-Formulary Medication (Empagliflozin/ Linagliptin (Glyxambi 25 mg-5 mg Tablet)) 1 each DAILY PO ; Start 07/30/18 at 09:00; Status UNV Metformin HCl (Glucophage) 500 mg BIDWMEALS PO Last administered on 07/31/18at 08:18; Start 07/30/18 at 17:00 Pioglitazone HCl (Actos) 30 mg DAILY PO Last administered on 07/31/18at 08:18; Start 07/30/18 at 09:00 Insulin Human Lispro (HumaLOG) 3 units TIDAC SQ Last administered on 07/30/18at 11:49; Start 07/30/18 at 09:00 Ringer's Solution 1,000 ml @ 1,000 mls/hr 1X ONCE IV Last administered on 07/30/18at 11:13; Start 07/30/18 at 11:30; Stop 07/30/18 at 12:29; Status DC Diphenhydramine HCl (Benadryl) 12.5 mg PRN Q6HRS PRN PO ITCHING; Start 07/30/18 at 17:15; Stop 07/30/18 at 17:15; Status DC Diphenhydramine HCl (Benadryl Oral Elixir) 12.5 mg PRN Q6HRS PRN PO ITCHING Last administered on 07/30/18at 17:14; Start 07/30/18 at 17:15 Buspirone HCl (Buspar) 5 mg TID PO Last administered on 07/31/18at 09:38; Start 07/31/18 at 09:00 Active Scripts Active Reported Aspirin Ec (Aspirin) 81 Mg Tablet.dr 1 Tab PO DAILY Ocuvite Tablet (Vit A,C & E/Lutein/Minerals) 1 Each Tablet 1 Each PO DAILY Fish Oil 1,000 Mg Capsule ([place]-3 Fatty Acids/Fish Oil) 1 Each Capsule 1 Each PO DAILY Glucosamine (Glucosamine Sulfate 2KCL) 1,000 Mg Tablet 1,000 Mg PO DAILY Selenium (Selenomethionine) 200 Mcg Tablet 200 Mcg PO DAILY Glyxambi 25 mg-5 mg Tablet (Empagliflozin/Linagliptin) 1 Each Tablet 1 Each PO DAILY Oxybutynin Chloride 5 Mg Tablet 5 Mg PO BID Multivitamins (Multivitamin) 1 Each Tablet 1 Tab PO DAILY Metformin Hcl 500 Mg Tablet 500 Mg PO BIDWMEALS Calcium + Vitamin D Tablet (Calcium Carbonate/Vitamin D3) 1 Each Tablet 1 Each PO DAILY Colestid (Colestipol Hcl) 1 Gm Tablet 1 Gm PO BID Actos (Pioglitazone Hcl) 30 Mg Tablet 30 Mg PO DAILY Lisinopril 5 Mg Tablet 5 Mg PO DAILY Lovastatin 20 Mg Tablet 10 Mg PO DAILY Propranolol Hcl 40 Mg Tablet 40 Mg PO DAILY Levothyroxine Sodium 125 Mcg Tablet 125 Mcg PO DAILYAC Glyburide 5 Mg Tablet 10 Mg PO BID Vitals/I & O Vital Sign - Last 24 Hours 07/30/18 07/30/18 07/30/18 07/30/18 10:58 11:00 11:38 12:37 Temp 98.1 98.1 Pulse 68 74 Resp 16 B/P (MAP) 87/41 (56) 90/33 (52) Pulse Ox 94 O2 Delivery Room Air Room Air Nasal Cannula O2 Flow Rate 2.0 07/30/18 07/30/18 07/30/18 07/30/18 13:07 13:07 14:19 17:20 Pulse 75 74 70 B/P (MAP) 88/39 (55) 90/33 (52) 100/53 (69) Pulse Ox 94 O2 Delivery Room Air 07/30/18 07/30/18 07/30/18 07/30/18 17:23 19:00 20:00 22:26 Temp 98.0 98.0 Pulse 84 76 Resp 18 B/P (MAP) 130/101 (111) 122/55 (77) Pulse Ox 96 O2 Delivery Room Air Room Air Room Air 07/30/18 07/31/18 07/31/18 07/31/18 23:00 03:00 05:37 06:37 Temp 98.6 99.1 98.6 99.1 Pulse 78 77 Resp 18 18 B/P (MAP) 123/57 (79) 123/62 (82) Pulse Ox 95 96 O2 Delivery Room Air Room Air Room Air Room Air 07/31/18 07/31/18 07/31/18 07/31/18 07:00 07:13 08:19 08:19 Temp 99.3 99.3 Pulse 76 76 76 Resp 18 B/P (MAP) 113/55 (74) 113/55 113/55 Pulse Ox 90 O2 Delivery Room Air Room Air 07/31/18 09:39 O2 Delivery Room Air Intake and Output 07/30/18 07/30/18 07/31/18 15:00 23:00 07:00 Intake Total 1000 ml 1800 ml Output Total 225 ml 1900 ml Balance 775 ml -100 ml BRIANDA SANCHEZ MD July 31, 2018 10:20
[2018-07-31] MEDS: KETOROLAC 15 MG/ML VIAL. IV PRN (11:19)
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
[2018-07-31 13:07] LABS: HEMOGLOBIN 7.7 g/dL (12.0-15.5)
[2018-07-31 13:22] LABS: BILIRUBIN,URINE NEGATIVE (NEG); CLARITY,URINE CLEAR; COLOR,URINE YELLOW; NITRITE,URINE NEGATIVE (NEG); PH,URINE 5.5; PROTEIN,URINE NEGATIVE (NEG-TRACE); UROBILINOGEN,URINE 0.2 mg/dL (0.2 mg/dL)
[2018-07-31 13:25] LABS: RBC,URINE 0 /HPF (0-2)
[2018-07-31 13:26] LABS: BACTERIA,URINE 0 /HPF (0-FEW); SQUAMOUS EPITHELIAL CELL,UR MOD /LPF
--- NOTE | 2018-07-31 15:17 | NUR ---
Pt has been accepted at [facility] for SNU, if pt is discharging tomorrow (08/01/18), please fax discharge paperwork and scripts to [phone]. Please call director of elementary education community outreach coordinatorSubha to advise of whether pt is discharging or not [phone]. RN notified.
[2018-07-31] MEDS: ATORVASTATIN CALCIUM 10 MG TABLET. PO SCH (21:05)
[2018-07-31] MEDS: INSULIN GLARGINE 300 UNITS/3 ML INSULN.PEN. SQ SCH (21:25)
[2018-08-01] MEDS: KETOROLAC 15 MG/ML VIAL. IV PRN ×2 (03:02→21:44)
[2018-08-01 03:05] VITALS: BP 101/50
[2018-08-01] MEDS: IV NORMAL SALINE 1000ML BAG 1,000 ML IV SCH ×3 (03:09→19:09)
--- NOTE | 2018-08-01 03:49 | NUR ---
Patient's family verbalized that she has been drinking 'plenty' of water, iv fluids stopped. To monitor.
[2018-08-01 05:46] LABS: BASO # 0.1 x10^3/uL (0.0-0.2); BASO % 1 % (0-3); EOS # 0.2 x10^3/uL (0.0-0.7); EOS % 5 % (0-3); LYMPH % 21 % (24-48); MEAN CORPUSCULAR HEMOGLOBIN 31 pg (25-35); MEAN CORPUSCULAR HGB CONC 34 g/dL (31-37); MEAN CORPUSCULAR VOLUME 92 fL (79-100); MONO # 0.7 x10^3/uL (0.0-1.1); MONO % 15 % (0-9); NEUT # 2.8 x10^3uL (1.8-7.7); NEUT % 59 % (31-73); PLATELET COUNT 143 x10^3/uL (140-400); RED BLOOD COUNT 2.18 x10^6/uL (3.50-5.40); WHITE BLOOD COUNT 4.8 x10^3/uL (4.0-11.0)
[2018-08-01 05:50] LABS: HEMOGLOBIN 6.7 g/dL (12.0-15.5)
[2018-08-01] MEDS: LEVOTHYROXINE 125 MCG TABLET PO SCH (06:09)
[2018-08-01 06:17] LABS: ALBUMIN 2.2 g/dL (3.4-5.0); ALBUMIN/GLOBULIN RATIO 0.9 (1.0-1.7); CALCIUM 8.2 mg/dL (8.5-10.1); CREATININE 0.8 mg/dL (0.6-1.0); GFR 70.5; TOTAL BILIRUBIN 0.4 mg/dL (0.2-1.0); TOTAL PROTEIN 4.6 g/dL (6.4-8.2)
[2018-08-01 07:00] VITALS: BP 101/49
[2018-08-01 07:42] LABS: HEMATOCRIT 22.1 % (36.0-47.0); HEMOGLOBIN 7.5 g/dL (12.0-15.5)
--- NOTE | 2018-08-01 08:00 | PDOC ---
PROGRESS NOTES Chief Complaint Chief Complaint fall acute right hip pain hip fracture Hypothyroidism DM2 HTN Anemia - acute, s/p 1U PRBC 07/31/18 Osteopenia - on calcium and vitamin D, vitamin D is 42 pod # 3 Restarted home meds Lovenox post op iv pain control prn PT/OT History of Present Illness History of Present Illness Ms. Villatoro, is a 73 year old F w/ PMHx DM2, HTN, HLD, osteopenia who presents for fall down stairs. Found by at the bottom of the stairs. Maybe slipped on a piece of cardboard. Reported R hip deformity. Pt was given ketamine for pain en route and she was out hard in the ER. then awake later on the floor and agitated and angry, increased meds given, and then asleep. S/p TFN with screws on 07/29/18. Pain difficult to control, better than prior to surgery. Very tearful today. Hb was 6.7-->7.5 after transfusion 07/31/18 Vitals Vitals Vital Signs Date Time Temp Pulse Resp B/P (MAP) Pulse Ox O2 Delivery O2 Flow Rate FiO2 08/01/18 03:05 98.2 64 18 101/50 (67) 95 Room Air 98.2 Physical Exam General: Alert, No acute distress Heart: Regular rate Abdomen: Soft Extremities: Other (the right lower extremity has trace diffuse edema. Dorsalis pedis pulse is palpable. She has intact sensation of the toes. She was barely able to dorsiflex and plantarflex the toes, likely decreased due to pain, I do not detect any specific nerve or artery injury.) Skin: No rashes, No breakdown, Other (the skin is intact over the fracture. There was no ecchymosis.) Labs LABS Laboratory Tests Test 07/31/18 11:25 07/31/18 12:47 07/31/18 13:05 07/31/18 16:41 Glucose (Fingerstick) 195 mg/dL (70-99) 206 mg/dL (70-99) Hemoglobin 7.7 g/dL (12.0-15.5) Hematocrit 23.0 % (36.0-47.0) Thyroid Stimulating Hormone (TSH) 1.208 uIU/mL (0.358-3.74) Urine Collection Type Unknown Urine Color Yellow Urine Clarity Clear Urine pH 5.5 Urine Specific [place] 1.015 Urine Protein Negative mg/dL (NEG-TRACE) Urine Glucose (UA) Negative mg/dL (NEG) Urine Ketones (Stick) 15 mg/dL (NEG) Urine Blood Negative (NEG) Urine Nitrite Negative (NEG) Urine Bilirubin Negative (NEG) Urine Urobilinogen Dipstick 0.2 mg/dL (0.2 mg/dL) Urine Leukocyte Esterase Trace (NEG) Urine RBC 0 /HPF (0-2) Urine WBC 5-10 /HPF (0-4) Urine Squamous Epithelial Cells Mod /LPF Urine Transitional Epithelial Cells Mod /LPF Urine Renal Epithelial Cells Few /LPF Urine Bacteria 0 /HPF (0-FEW) Test 07/31/18 20:55 08/01/18 04:35 08/01/18 07:35 Glucose (Fingerstick) 205 mg/dL (70-99) White Blood Count 4.8 x10^3/uL (4.0-11.0) Red Blood Count 2.18 x10^6/uL (3.50-5.40) Hemoglobin 6.7 g/dL (12.0-15.5) 7.5 g/dL (12.0-15.5) Hematocrit 20.0 % (36.0-47.0) 22.1 % (36.0-47.0) Mean Corpuscular Volume 92 fL (79-100) Mean Corpuscular Hemoglobin 31 pg (25-35) Mean Corpuscular Hemoglobin Concent 34 g/dL (31-37) Red Cell Distribution Width 15.0 % (11.5-14.5) Platelet Count 143 x10^3/uL (140-400) Neutrophils (%) (Auto) 59 % (31-73) Lymphocytes (%) (Auto) 21 % (24-48) Monocytes (%) (Auto) 15 % (0-9) Eosinophils (%) (Auto) 5 % (0-3) Basophils (%) (Auto) 1 % (0-3) Neutrophils # (Auto) 2.8 x10^3uL (1.8-7.7) Lymphocytes # (Auto) 1.0 x10^3/uL (1.0-4.8) Monocytes # (Auto) 0.7 x10^3/uL (0.0-1.1) Eosinophils # (Auto) 0.2 x10^3/uL (0.0-0.7) Basophils # (Auto) 0.1 x10^3/uL (0.0-0.2) Sodium Level 142 mmol/L (136-145) Potassium Level 4.0 mmol/L (3.5-5.1) Chloride Level 107 mmol/L (98-107) Carbon Dioxide Level 28 mmol/L (21-32) Anion Gap 7 (6-14) Blood Urea Nitrogen 17 mg/dL (7-20) Creatinine 0.8 mg/dL (0.6-1.0) Estimated GFR (Cockcroft-Gault) 70.5 BUN/Creatinine Ratio 21 (6-20) Glucose Level 212 mg/dL (70-99) Calcium Level 8.2 mg/dL (8.5-10.1) Total Bilirubin 0.4 mg/dL (0.2-1.0) Aspartate Amino Transf (AST/SGOT) 21 U/L (15-37) Alanine Aminotransferase (ALT/SGPT) 14 U/L (14-59) Alkaline Phosphatase 38 U/L (46-116) Total Protein 4.6 g/dL (6.4-8.2) Albumin 2.2 g/dL (3.4-5.0) Albumin/Globulin Ratio 0.9 (1.0-1.7) Assessment and Plan Assessmemt and Plan Problems Medical Problems: (1) Fall Status: Acute (2) Hip fracture, right Status: Acute Comment Review of Relevant I have reviewed the following items emilia (where applicable) has been applied. Labs Laboratory Tests Test 07/30/18 08:43 07/30/18 11:22 07/30/18 16:56 07/30/18 21:09 Hemoglobin 7.7 g/dL (12.0-15.5) Hematocrit 23.0 % (36.0-47.0) Mean Corpuscular Hemoglobin Concent 34 g/dL (31-37) 25-Hydroxy Vitamin D Total 42.0 ng/mL (30-100) Glucose (Fingerstick) 255 mg/dL (70-99) 134 mg/dL (70-99) 150 mg/dL (70-99) Test 07/31/18 07:35 07/31/18 11:25 07/31/18 12:47 07/31/18 13:05 Glucose (Fingerstick) 121 mg/dL (70-99) 195 mg/dL (70-99) Hemoglobin 7.7 g/dL (12.0-15.5) Hematocrit 23.0 % (36.0-47.0) Thyroid Stimulating Hormone (TSH) 1.208 uIU/mL (0.358-3.74) Urine Collection Type Unknown Urine Color Yellow Urine Clarity Clear Urine pH 5.5 Urine Specific [place] 1.015 Urine Protein Negative mg/dL (NEG-TRACE) Urine Glucose (UA) Negative mg/dL (NEG) Urine Ketones (Stick) 15 mg/dL (NEG) Urine Blood Negative (NEG) Urine Nitrite Negative (NEG) Urine Bilirubin Negative (NEG) Urine Urobilinogen Dipstick 0.2 mg/dL (0.2 mg/dL) Urine Leukocyte Esterase Trace (NEG) Urine RBC 0 /HPF (0-2) Urine WBC 5-10 /HPF (0-4) Urine Squamous Epithelial Cells Mod /LPF Urine Transitional Epithelial Cells Mod /LPF Urine Renal Epithelial Cells Few /LPF Urine Bacteria 0 /HPF (0-FEW) Test 07/31/18 16:41 07/31/18 20:55 08/01/18 04:35 08/01/18 07:35 Glucose (Fingerstick) 206 mg/dL (70-99) 205 mg/dL (70-99) White Blood Count 4.8 x10^3/uL (4.0-11.0) Red Blood Count 2.18 x10^6/uL (3.50-5.40) Hemoglobin 6.7 g/dL (12.0-15.5) 7.5 g/dL (12.0-15.5) Hematocrit 20.0 % (36.0-47.0) 22.1 % (36.0-47.0) Mean Corpuscular Volume 92 fL (79-100) Mean Corpuscular Hemoglobin 31 pg (25-35) Mean Corpuscular Hemoglobin Concent 34 g/dL (31-37) Red Cell Distribution Width 15.0 % (11.5-14.5) Platelet Count 143 x10^3/uL (140-400) Neutrophils (%) (Auto) 59 % (31-73) Lymphocytes (%) (Auto) 21 % (24-48) Monocytes (%) (Auto) 15 % (0-9) Eosinophils (%) (Auto) 5 % (0-3) Basophils (%) (Auto) 1 % (0-3) Neutrophils # (Auto) 2.8 x10^3uL (1.8-7.7) Lymphocytes # (Auto) 1.0 x10^3/uL (1.0-4.8) Monocytes # (Auto) 0.7 x10^3/uL (0.0-1.1) Eosinophils # (Auto) 0.2 x10^3/uL (0.0-0.7) Basophils # (Auto) 0.1 x10^3/uL (0.0-0.2) Sodium Level 142 mmol/L (136-145) Potassium Level 4.0 mmol/L (3.5-5.1) Chloride Level 107 mmol/L (98-107) Carbon Dioxide Level 28 mmol/L (21-32) Anion Gap 7 (6-14) Blood Urea Nitrogen 17 mg/dL (7-20) Creatinine 0.8 mg/dL (0.6-1.0) Estimated GFR (Cockcroft-Gault) 70.5 BUN/Creatinine Ratio 21 (6-20) Glucose Level 212 mg/dL (70-99) Calcium Level 8.2 mg/dL (8.5-10.1) Total Bilirubin 0.4 mg/dL (0.2-1.0) Aspartate Amino Transf (AST/SGOT) 21 U/L (15-37) Alanine Aminotransferase (ALT/SGPT) 14 U/L (14-59) Alkaline Phosphatase 38 U/L (46-116) Total Protein 4.6 g/dL (6.4-8.2) Albumin 2.2 g/dL (3.4-5.0) Albumin/Globulin Ratio 0.9 (1.0-1.7) Laboratory Tests Test 07/31/18 11:25 07/31/18 12:47 07/31/18 13:05 07/31/18 16:41 Glucose (Fingerstick) 195 mg/dL (70-99) 206 mg/dL (70-99) Hemoglobin 7.7 g/dL (12.0-15.5) Hematocrit 23.0 % (36.0-47.0) Thyroid Stimulating Hormone (TSH) 1.208 uIU/mL (0.358-3.74) Urine Collection Type Unknown Urine Color Yellow Urine Clarity Clear Urine pH 5.5 Urine Specific [place] 1.015 Urine Protein Negative mg/dL (NEG-TRACE) Urine Glucose (UA) Negative mg/dL (NEG) Urine Ketones (Stick) 15 mg/dL (NEG) Urine Blood Negative (NEG) Urine Nitrite Negative (NEG) Urine Bilirubin Negative (NEG) Urine Urobilinogen Dipstick 0.2 mg/dL (0.2 mg/dL) Urine Leukocyte Esterase Trace (NEG) Urine RBC 0 /HPF (0-2) Urine WBC 5-10 /HPF (0-4) Urine Squamous Epithelial Cells Mod /LPF Urine Transitional Epithelial Cells Mod /LPF Urine Renal Epithelial Cells Few /LPF Urine Bacteria 0 /HPF (0-FEW) Test 07/31/18 20:55 08/01/18 04:35 08/01/18 07:35 Glucose (Fingerstick) 205 mg/dL (70-99) White Blood Count 4.8 x10^3/uL (4.0-11.0) Red Blood Count 2.18 x10^6/uL (3.50-5.40) Hemoglobin 6.7 g/dL (12.0-15.5) 7.5 g/dL (12.0-15.5) Hematocrit 20.0 % (36.0-47.0) 22.1 % (36.0-47.0) Mean Corpuscular Volume 92 fL (79-100) Mean Corpuscular Hemoglobin 31 pg (25-35) Mean Corpuscular Hemoglobin Concent 34 g/dL (31-37) Red Cell Distribution Width 15.0 % (11.5-14.5) Platelet Count 143 x10^3/uL (140-400) Neutrophils (%) (Auto) 59 % (31-73) Lymphocytes (%) (Auto) 21 % (24-48) Monocytes (%) (Auto) 15 % (0-9) Eosinophils (%) (Auto) 5 % (0-3) Basophils (%) (Auto) 1 % (0-3) Neutrophils # (Auto) 2.8 x10^3uL (1.8-7.7) Lymphocytes # (Auto) 1.0 x10^3/uL (1.0-4.8) Monocytes # (Auto) 0.7 x10^3/uL (0.0-1.1) Eosinophils # (Auto) 0.2 x10^3/uL (0.0-0.7) Basophils # (Auto) 0.1 x10^3/uL (0.0-0.2) Sodium Level 142 mmol/L (136-145) Potassium Level 4.0 mmol/L (3.5-5.1) Chloride Level 107 mmol/L (98-107) Carbon Dioxide Level 28 mmol/L (21-32) Anion Gap 7 (6-14) Blood Urea Nitrogen 17 mg/dL (7-20) Creatinine 0.8 mg/dL (0.6-1.0) Estimated GFR (Cockcroft-Gault) 70.5 BUN/Creatinine Ratio 21 (6-20) Glucose Level 212 mg/dL (70-99) Calcium Level 8.2 mg/dL (8.5-10.1) Total Bilirubin 0.4 mg/dL (0.2-1.0) Aspartate Amino Transf (AST/SGOT) 21 U/L (15-37) Alanine Aminotransferase (ALT/SGPT) 14 U/L (14-59) Alkaline Phosphatase 38 U/L (46-116) Total Protein 4.6 g/dL (6.4-8.2) Albumin 2.2 g/dL (3.4-5.0) Albumin/Globulin Ratio 0.9 (1.0-1.7) Medications Current Medications Fentanyl Citrate (Fentanyl 2ml Vial) 100 mcg STK-MED ONCE .ROUTE ; Start 07/28/18 at 15:44; Stop 07/28/18 at 15:45; Status DC Iohexol (Omnipaque 300 Mg/ml) 75 ml 1X ONCE IV Last administered on 07/28/18at 16:22; Start 07/28/18 at 16:15; Stop 07/28/18 at 16:25; Status DC Fentanyl Citrate (Fentanyl 2ml Vial) 50 mcg 1X ONCE IV Last administered on 07/28/18at 16:34; Start 07/28/18 at 16:15; Stop 07/28/18 at 16:25; Status DC Info (CONTRAST GIVEN -- Rx MONITORING) 1 each PRN DAILY PRN MC SEE COMMENTS; Start 07/28/18 at 16:15; Stop 07/30/18 at 16:14; Status DC Iohexol (Omnipaque 300 Mg/ml) 100 ml STK-MED ONCE .ROUTE ; Start 07/28/18 at 16:08; Stop 07/28/18 at 16:09; Status DC Ondansetron HCl (Zofran) 4 mg 1X ONCE IV Last administered on 07/28/18at 16:34; Start 07/28/18 at 16:15; Stop 07/28/18 at 16:25; Status DC Ondansetron HCl (Zofran) 4 mg STK-MED ONCE .ROUTE ; Start 07/28/18 at 16:12; Stop 07/28/18 at 16:13; Status DC Fentanyl Citrate (Fentanyl 2ml Vial) 50 mcg 1X ONCE IV Last administered on 07/28/18at 16:44; Start 07/28/18 at 16:45; Stop 07/28/18 at 16:46; Status DC Hydromorphone HCl (Dilaudid) 0.5 mg PRN Q2HR PRN IV SEVERE PAIN LAST CHOICE Last administered on 07/30/18at 10:58; Start 07/28/18 at 17:00 Ropivacaine 53.3 ml/Epinephrine HCl 0.6 mg/ Morphine Sulfate 5 mg/Sodium Chloride 100 ml @ 100 mls/hr 1X ONCE INT ART Last administered on 07/29/18at 18:19; Start 07/29/18 at 06:00; Stop 07/29/18 at 07:00; Status DC Fentanyl Citrate (Fentanyl 2ml Vial) 50 mcg PRN Q1HR PRN IV SEVERE PAIN Last administered on 07/30/18at 00:48; Start 07/28/18 at 18:45 Ondansetron HCl (Zofran) 4 mg PRN Q6HRS PRN IV NAUSEA/VOMITING; Start 07/28/18 at 20:15; Stop 07/30/18 at 08:52; Status DC Fentanyl Citrate (Fentanyl 2ml Vial) 75 mcg PRN Q2HR PRN IV SEVERE PAIN 7-10 Last administered on 07/28/18at 22:49; Start 07/28/18 at 20:30 Fentanyl Citrate (Fentanyl 2ml Vial) 100 mcg 1X ONCE IV ; Start 07/28/18 at 20:30; Stop 07/28/18 at 20:33; Status DC Sodium Chloride 1,000 ml @ 125 mls/hr Q8H IV Last administered on 07/31/18 21:03; Start 07/28/18 at 20:30 Ketorolac Tromethamine (Toradol 15mg Vial) 15 mg PRN Q6HRS PRN IV MILD PAIN Last administered on 08/01/18at 03:02; Start 07/28/18 at 21:15; Stop 08/02/18 at 21:14 Insulin Glargine (Lantus) 5 units QHS SQ Last administered on 07/31/18at 21:25; Start 07/29/18 at 21:00 Insulin Human Lispro (HumaLOG) 0-7 UNITS TIDWMEALS SQ Last administered on 07/31/18at 16:48; Start 07/29/18 at 12:00 Dextrose (Dextrose 50%-Water Syringe) 12.5 gm PRN Q15MIN PRN IV SEE COMMENTS; Start 07/29/18 at 08:30 Glyburide (Diabeta) 10 mg BIDAC PO Last administered on 07/31/18at 15:50; Start 07/29/18 at 16:30 Fish Oil (Fish Oil) 1,000 mg DAILY PO Last administered on 07/31/18 08:18; Start 07/29/18 at 13:00 Oxybutynin Chloride (Ditropan) 5 mg BID PO Last administered on 07/31/18at 21:04; Start 07/29/18 at 21:00 Multivitamins/ Minerals (I-María Elena) 1 tab DAILY PO ; Start 07/29/18 at 13:00; Stop 07/30/18 at 08:27; Status DC Non-Formulary Medication (Glucosamine Sulfate 2KCL (Glucosamine)) 1,000 mg DAILY PO ; Start 07/30/18 at 09:00; Status UNV Levothyroxine Sodium (Synthroid) 125 mcg DAILY06 PO Last administered on 08/01/18at 06:09; Start 07/29/18 at 15:30 Lisinopril (Prinivil) 5 mg DAILY PO Last administered on 07/31/18at 08:19; Start 07/29/18 at 13:00 Atorvastatin Calcium (Lipitor) 5 mg QHS PO Last administered on 07/31/18at 21:05; Start 07/29/18 at 21:00 Propranolol HCl (Inderal) 40 mg DAILY PO Last administered on 07/31/18at 08:19; Start 07/29/18 at 13:00 Non-Formulary Medication (Selenomethionine (Selenium)) 200 mcg DAILY PO ; Start 07/30/18 at 09:00; Status UNV Cefazolin Sodium/ Dextrose 50 ml @ 100 mls/hr 1X PREOP PRN IV SEE COMMENTS Last administered on 07/29/18at 17:47; Start 07/29/18 at 13:15; Stop 07/30/18 at 08:53; Status DC Ropivacaine 53.3 ml/Epinephrine HCl 0.6 mg/ Morphine Sulfate 5 mg/Sodium Chloride 100 ml @ 100 mls/hr 1X ONCE INT ART ; Start 07/29/18 at 13:15; Stop 07/29/18 at 14:14; Status DC Sevoflurane (Ultane) 30 ml STK-MED ONCE IH ; Start 07/29/18 at 15:39; Stop 07/29/18 at 15:40; Status DC Dexamethasone Sodium Phosphate (Decadron) 4 mg STK-MED ONCE .ROUTE ; Start 07/29/18 at 15:40; Stop 07/29/18 at 15:41; Status DC Propofol 20 ml @ As Directed STK-MED ONCE IV ; Start 07/29/18 at 15:40; Stop 07/29/18 at 15:41; Status DC Lidocaine HCl (Lidocaine Pf 2% Vial) 5 ml STK-MED ONCE .ROUTE ; Start 07/29/18 at 15:40; Stop 07/29/18 at 15:41; Status DC Ondansetron HCl (Zofran) 4 mg STK-MED ONCE .ROUTE ; Start 07/29/18 at 15:40; Stop 07/29/18 at 15:41; Status DC Phenylephrine HCl (Perfecto-Synephrine Inj) 10 mg STK-MED ONCE .ROUTE ; Start 07/29/18 at 15:40; Stop 07/29/18 at 15:41; Status DC Metoprolol Tartrate (Lopressor Vial) 5 mg STK-MED ONCE IVP ; Start 07/29/18 at 15:52; Stop 07/29/18 at 15:53; Status DC Cefazolin Sodium (Ancef) 1 gm STK-MED ONCE .ROUTE ; Start 07/29/18 at 16:29; Stop 07/29/18 at 16:30; Status DC Cefazolin Sodium (Ancef) 1 gm STK-MED ONCE .ROUTE ; Start 07/29/18 at 16:29; Stop 07/29/18 at 16:30; Status DC Cefazolin Sodium (Ancef) 1 gm STK-MED ONCE .ROUTE ; Start 07/29/18 at 16:29; Stop 07/29/18 at 16:30; Status DC Midazolam HCl (Versed) 2 mg STK-MED ONCE .ROUTE ; Start 07/29/18 at 16:45; Stop 07/29/18 at 16:46; Status DC Midazolam HCl (Versed) 0.5 mg PRN Q10MIN PRN IV anxiety Last administered on 07/29/18at 17:05; Start 07/29/18 at 17:00; Stop 07/30/18 at 08:52; Status DC Cefazolin Sodium (Ancef) 1 gm STK-MED ONCE .ROUTE ; Start 07/29/18 at 17:17; Stop 07/29/18 at 17:18; Status DC Prochlorperazine Edisylate (Compazine) 10 mg STK-MED ONCE .ROUTE ; Start 07/29/18 at 19:12; Stop 07/29/18 at 19:13; Status DC Ondansetron HCl (Zofran) 4 mg PRN Q6HRS PRN IV NAUSEA/VOMITING; Start 07/29/18 at 19:15; Stop 07/30/18 at 08:52; Status DC Fentanyl Citrate (Fentanyl 2ml Vial) 25 mcg PRN Q5MIN PRN IV MILD PAIN 1-3; Start 07/29/18 at 19:15; Stop 07/30/18 at 08:52; Status DC Fentanyl Citrate (Fentanyl 2ml Vial) 50 mcg PRN Q5MIN PRN IV MODERATE TO SEVERE PAIN Last administered on 07/29/18at 19:44; Start 07/29/18 at 19:15; Stop 07/30/18 at 08:53; Status DC Morphine Sulfate (Morphine Sulfate) 1 mg PRN Q10MIN PRN IV SEVERE PAIN 7-10; Start 07/29/18 at 19:15; Stop 07/30/18 at 08:53; Status DC Ringer's Solution 1,000 ml @ 30 mls/hr Q24H IV ; Start 07/29/18 at 19:14; Stop 07/30/18 at 07:13; Status DC Lidocaine HCl (Xylocaine-Mpf 1% 2ml Vial) 2 ml PRN 1X PRN ID PRIOR TO IV START; Start 07/29/18 at 19:15; Stop 07/30/18 at 08:53; Status DC Hydromorphone HCl (Dilaudid) 0.5 mg PRN Q10MIN PRN IV SEV PAIN, Second choice; Start 07/29/18 at 19:15; Stop 07/30/18 at 08:53; Status DC Prochlorperazine Edisylate (Compazine) 5 mg PACU PRN PRN IV NAUSEA, MRX1 Last administered on 07/29/18at 19:25; Start 07/29/18 at 19:15; Stop 07/30/18 at 08:53; Status DC Oxycodone HCl (Roxicodone) 5 mg PRN Q3HRS PRN PO PAIN; Start 07/29/18 at 19:30 Morphine Sulfate (Morphine Sulfate) 2 mg PRN Q1HR PRN IV PAIN; Start 07/29/18 at 19:30 Fentanyl Citrate (Fentanyl 2ml Vial) 25 mcg PRN Q1HR PRN IV PAIN; Start 07/29/18 at 19:30 Multivitamins (Thera M Plus) 1 tab DAILY PO Last administered on 07/31/18at 08:18; Start 07/30/18 at 09:00 Senna/Docusate Sodium (Senna Plus) 1 tab DAILY PO Last administered on 07/31/18at 08:18; Start 07/30/18 at 09:00 Polyethylene Glycol (miraLAX PACKET) 17 gm PRN DAILY PRN PO CONSTIPATION; Start 07/29/18 at 19:30 Vitamin D (Vitamin D3) 1,000 unit DAILY PO Last administered on 07/31/18at 08:18; Start 07/30/18 at 09:00 Sodium Chloride 1,000 ml @ 75 mls/hr [id number] IV ; Start 07/29/18 at 19:27; Stop 07/30/18 at 09:51; Status DC Ondansetron HCl (Zofran) 4 mg PRN Q4HRS PRN IV NAUSEA/VOMITING; Start 07/29/18 at 19:30 Magnesium Hydroxide (Milk Of Magnesia) 2,400 mg 1X PRN PRN PO CONSTIPATION; Start 07/30/18 at 06:00; Stop 07/31/18 at 05:59; Status DC Bisacodyl (Dulcolax Supp) 10 mg 1X PRN PRN CO CONSTIPATION; Start 07/30/18 at 16:00; Stop 07/31/18 at 15:59; Status DC Acetaminophen/ Hydrocodone Bitart (Lortab 7.5/325) 1 tab PRN Q4HRS PRN PO PAIN Last administered on 07/31/18at 18:35; Start 07/29/18 at 19:30 Morphine Sulfate (Morphine Sulfate) 4 mg PRN Q2HR PRN IV PAIN; Start 07/29/18 at 19:30 Acetaminophen/ Hydrocodone Bitart (Lortab 7.5/325) 2 tab PRN Q4HRS PRN PO PAIN Last administered on 07/31/18at 22:50; Start 07/29/18 at 19:30 Dextrose (Dextrose 50%-Water Syringe) 12.5 gm PRN Q15MIN PRN IV SEE COMMENTS; Start 07/29/18 at 19:30; Status Cancel Cefazolin Sodium/ Dextrose 50 ml @ 100 mls/hr Q6H IV Last administered on 07/30/18at 08:19; Start 07/29/18 at 20:00; Stop 07/30/18 at 08:29; Status DC Aspirin (Ecotrin) 325 mg BID PO Last administered on 07/31/18at 21:04; Start 07/29/18 at 21:00 Colestipol HCl (Colestid) 1 gm BID PO Last administered on 07/31/18at 21:04; Start 07/29/18 at 21:00 Vitamin D (Vitamin D3) 1,000 unit DAILY PO ; Start 07/30/18 at 09:00; Stop 07/30/18 at 09:00; Status DC Non-Formulary Medication (Empagliflozin/ Linagliptin (Glyxambi 25 mg-5 mg Tablet)) 1 each DAILY PO ; Start 07/30/18 at 09:00; Status UNV Metformin HCl (Glucophage) 500 mg BIDWMEALS PO Last administered on 07/31/18at 15:51; Start 07/30/18 at 17:00 Pioglitazone HCl (Actos) 30 mg DAILY PO Last administered on 07/31/18at 08:18; Start 07/30/18 at 09:00 Insulin Human Lispro (HumaLOG) 3 units TIDAC SQ Last administered on 07/31/18at 16:49; Start 07/30/18 at 09:00 Ringer's Solution 1,000 ml @ 1,000 mls/hr 1X ONCE IV Last administered on 07/30/18at 11:13; Start 07/30/18 at 11:30; Stop 07/30/18 at 12:29; Status DC Diphenhydramine HCl (Benadryl) 12.5 mg PRN Q6HRS PRN PO ITCHING; Start 07/30/18 at 17:15; Stop 07/30/18 at 17:15; Status DC Diphenhydramine HCl (Benadryl Oral Elixir) 12.5 mg PRN Q6HRS PRN PO ITCHING Last administered on 07/30/18at 17:14; Start 07/30/18 at 17:15 Buspirone HCl (Buspar) 5 mg TID PO Last administered on 07/31/18at 21:05; Start 07/31/18 at 09:00 Active Scripts Active Reported Aspirin Ec (Aspirin) 81 Mg Tablet. 1 Tab PO DAILY Ocuvite Tablet (Vit A,C & E/Lutein/Minerals) 1 Each Tablet 1 Each PO DAILY Fish Oil 1,000 Mg Capsule (Pierce-3 Fatty Acids/Fish Oil) 1 Each Capsule 1 Each PO DAILY Glucosamine (Glucosamine Sulfate 2KCL) 1,000 Mg Tablet 1,000 Mg PO DAILY Selenium (Selenomethionine) 200 Mcg Tablet 200 Mcg PO DAILY Glyxambi 25 mg-5 mg Tablet (Empagliflozin/Linagliptin) 1 Each Tablet 1 Each PO DAILY Oxybutynin Chloride 5 Mg Tablet 5 Mg PO BID Multivitamins (Multivitamin) 1 Each Tablet 1 Tab PO DAILY Metformin Hcl 500 Mg Tablet 500 Mg PO BIDWMEALS Calcium + Vitamin D Tablet (Calcium Carbonate/Vitamin D3) 1 Each Tablet 1 Each PO DAILY Colestid (Colestipol Hcl) 1 Gm Tablet 1 Gm PO BID Actos (Pioglitazone Hcl) 30 Mg Tablet 30 Mg PO DAILY Lisinopril 5 Mg Tablet 5 Mg PO DAILY Lovastatin 20 Mg Tablet 10 Mg PO DAILY Propranolol Hcl 40 Mg Tablet 40 Mg PO DAILY Levothyroxine Sodium 125 Mcg Tablet 125 Mcg PO DAILYAC Glyburide 5 Mg Tablet 10 Mg PO BID Vitals/I & O Vital Sign - Last 24 Hours 07/31/18 07/31/18 07/31/18 07/31/18 08:19 08:19 09:39 11:00 Temp 98.9 98.9 Pulse 76 76 80 Resp 18 B/P (MAP) 113/55 113/55 92/49 (63) Pulse Ox 96 O2 Delivery Room Air Room Air 07/31/18 07/31/18 07/31/18 07/31/18 11:06 13:44 15:00 18:35 Temp 98.6 98.6 Pulse 78 67 Resp 18 B/P (MAP) 106/66 (79) 110/62 (78) Pulse Ox 98 O2 Delivery Room Air Room Air Room Air 07/31/18 07/31/18 07/31/18 07/31/18 19:25 20:00 22:50 23:14 Temp 98.1 98.2 98.1 98.2 Pulse 85 59 Resp 18 20 18 B/P (MAP) 138/69 (92) 127/58 (81) Pulse Ox 97 99 O2 Delivery Room Air Room Air Room Air Room Air 07/31/18 08/01/18 23:50 03:05 Temp 98.2 98.2 Pulse 64 Resp 18 18 B/P (MAP) 101/50 (67) Pulse Ox 95 O2 Delivery Room Air Room Air Intake and Output 07/31/18 07/31/18 08/01/18 15:00 23:00 07:00 Intake Total 480 ml Balance 480 ml KAREN PADILLA MD August 01, 2018 08:00
[2018-08-01] MEDS: NON FORMULARY ITEM (Empagliflozin/Linagliptin (Glyxambi 25 mg-5 mg Tablet) 1 EACH) PO SCH (09:00)
[2018-08-01] MEDS: ASPIRIN ENTERIC COATED 325 MG TABLET.DR. PO SCH ×2 (09:00→21:07)
[2018-08-01] MEDS: COLESTIPOL HCL 1 GM TABLET PO SCH ×2 (09:30→21:06)
[2018-08-01] MEDS: OMEGA-3 FATTY ACIDS/FISH OIL 1,000 MG CAPSULE. PO SCH (09:30)
[2018-08-01] MEDS: metFORMIN 500 MG TABLET PO SCH ×2 (09:31→18:06)
[2018-08-01] MEDS: SENNOSIDES/DOCUSATE 8.6/50MG TABLET. PO SCH (09:31)
[2018-08-01] MEDS: MULTIVITAMIN with MINERAL TABLET. PO SCH (09:31)
[2018-08-01] MEDS: PROPRANOLOL 40 MG TABLET. PO SCH (09:32)
[2018-08-01] MEDS: PIOGLITAZONE 15 MG TABLET. PO SCH (09:33)
[2018-08-01] MEDS: CHOLECALCIFEROL (VITAMIN D3) 1,000 UNIT TABLET PO SCH (09:34)
[2018-08-01] MEDS: glyBURIDE 5 MG TABLET PO SCH ×2 (09:34→18:06)
[2018-08-01] MEDS: busPIRone 5 MG TABLET. PO SCH ×3 (09:35→21:06)
[2018-08-01] MEDS: LISINOPRIL 5 MG TABLET. PO SCH (09:36)
[2018-08-01] MEDS: OXYBUTYNIN CHLORIDE 5 MG TABLET PO SCH ×2 (09:36→21:06)
[2018-08-01] MEDS: INSULIN LISPRO 300 UNITS/3 ML INSULN.PEN. SQ SCH ×6 (09:48→18:10)
--- NOTE | 2018-08-01 10:56 | PDOC ---
PROGRESS NOTES Subjective Subjective Feeling better today. She was able to walk to the bathroom with a walker, and assistance. Hip pain is present but improved from immediately postop Objective Vital Signs Vital Signs Date Time Temp Pulse Resp B/P (MAP) Pulse Ox O2 Delivery O2 Flow Rate FiO2 08/01/18 09:36 89 101/49 08/01/18 07:00 98.3 18 97 Room Air 98.3 07/30/18 11:38 2.0 Physical Exam The right lower extremity shows normal alignment. The thigh and calf are soft and nontender. I did very gentle circumduction of the hip with her lying in bed and there is no crepitus or severe pain. She is able to dorsiflex and plantarflex the toes and feet without difficulty. Capillary refill appears normal. Her dressings are intact and dry Labs Laboratory Tests Test 07/30/18 11:22 07/30/18 16:56 07/30/18 21:09 07/31/18 07:35 Glucose (Fingerstick) 255 mg/dL (70-99) 134 mg/dL (70-99) 150 mg/dL (70-99) 121 mg/dL (70-99) Test 07/31/18 11:25 07/31/18 12:47 07/31/18 13:05 07/31/18 16:41 Glucose (Fingerstick) 195 mg/dL (70-99) 206 mg/dL (70-99) Hemoglobin 7.7 g/dL (12.0-15.5) Hematocrit 23.0 % (36.0-47.0) Thyroid Stimulating Hormone (TSH) 1.208 uIU/mL (0.358-3.74) Urine Collection Type Unknown Urine Color Yellow Urine Clarity Clear Urine pH 5.5 Urine Specific [place] 1.015 Urine Protein Negative mg/dL (NEG-TRACE) Urine Glucose (UA) Negative mg/dL (NEG) Urine Ketones (Stick) 15 mg/dL (NEG) Urine Blood Negative (NEG) Urine Nitrite Negative (NEG) Urine Bilirubin Negative (NEG) Urine Urobilinogen Dipstick 0.2 mg/dL (0.2 mg/dL) Urine Leukocyte Esterase Trace (NEG) Urine RBC 0 /HPF (0-2) Urine WBC 5-10 /HPF (0-4) Urine Squamous Epithelial Cells Mod /LPF Urine Transitional Epithelial Cells Mod /LPF Urine Renal Epithelial Cells Few /LPF Urine Bacteria 0 /HPF (0-FEW) Test 07/31/18 20:55 08/01/18 04:35 08/01/18 07:35 08/01/18 07:52 Glucose (Fingerstick) 205 mg/dL (70-99) 272 mg/dL (70-99) White Blood Count 4.8 x10^3/uL (4.0-11.0) Red Blood Count 2.18 x10^6/uL (3.50-5.40) Hemoglobin 6.7 g/dL (12.0-15.5) 7.5 g/dL (12.0-15.5) Hematocrit 20.0 % (36.0-47.0) 22.1 % (36.0-47.0) Mean Corpuscular Volume 92 fL (79-100) Mean Corpuscular Hemoglobin 31 pg (25-35) Mean Corpuscular Hemoglobin Concent 34 g/dL (31-37) Red Cell Distribution Width 15.0 % (11.5-14.5) Platelet Count 143 x10^3/uL (140-400) Neutrophils (%) (Auto) 59 % (31-73) Lymphocytes (%) (Auto) 21 % (24-48) Monocytes (%) (Auto) 15 % (0-9) Eosinophils (%) (Auto) 5 % (0-3) Basophils (%) (Auto) 1 % (0-3) Neutrophils # (Auto) 2.8 x10^3uL (1.8-7.7) Lymphocytes # (Auto) 1.0 x10^3/uL (1.0-4.8) Monocytes # (Auto) 0.7 x10^3/uL (0.0-1.1) Eosinophils # (Auto) 0.2 x10^3/uL (0.0-0.7) Basophils # (Auto) 0.1 x10^3/uL (0.0-0.2) Sodium Level 142 mmol/L (136-145) Potassium Level 4.0 mmol/L (3.5-5.1) Chloride Level 107 mmol/L (98-107) Carbon Dioxide Level 28 mmol/L (21-32) Anion Gap 7 (6-14) Blood Urea Nitrogen 17 mg/dL (7-20) Creatinine 0.8 mg/dL (0.6-1.0) Estimated GFR (Cockcroft-Gault) 70.5 BUN/Creatinine Ratio 21 (6-20) Glucose Level 212 mg/dL (70-99) Calcium Level 8.2 mg/dL (8.5-10.1) Total Bilirubin 0.4 mg/dL (0.2-1.0) Aspartate Amino Transf (AST/SGOT) 21 U/L (15-37) Alanine Aminotransferase (ALT/SGPT) 14 U/L (14-59) Alkaline Phosphatase 38 U/L (46-116) Total Protein 4.6 g/dL (6.4-8.2) Albumin 2.2 g/dL (3.4-5.0) Albumin/Globulin Ratio 0.9 (1.0-1.7) Laboratory Tests Test 07/31/18 11:25 07/31/18 12:47 07/31/18 13:05 07/31/18 16:41 Glucose (Fingerstick) 195 mg/dL (70-99) 206 mg/dL (70-99) Hemoglobin 7.7 g/dL (12.0-15.5) Hematocrit 23.0 % (36.0-47.0) Thyroid Stimulating Hormone (TSH) 1.208 uIU/mL (0.358-3.74) Urine Collection Type Unknown Urine Color Yellow Urine Clarity Clear Urine pH 5.5 Urine Specific [place] 1.015 Urine Protein Negative mg/dL (NEG-TRACE) Urine Glucose (UA) Negative mg/dL (NEG) Urine Ketones (Stick) 15 mg/dL (NEG) Urine Blood Negative (NEG) Urine Nitrite Negative (NEG) Urine Bilirubin Negative (NEG) Urine Urobilinogen Dipstick 0.2 mg/dL (0.2 mg/dL) Urine Leukocyte Esterase Trace (NEG) Urine RBC 0 /HPF (0-2) Urine WBC 5-10 /HPF (0-4) Urine Squamous Epithelial Cells Mod /LPF Urine Transitional Epithelial Cells Mod /LPF Urine Renal Epithelial Cells Few /LPF Urine Bacteria 0 /HPF (0-FEW) Test 07/31/18 20:55 08/01/18 04:35 08/01/18 07:35 08/01/18 07:52 Glucose (Fingerstick) 205 mg/dL (70-99) 272 mg/dL (70-99) White Blood Count 4.8 x10^3/uL (4.0-11.0) Red Blood Count 2.18 x10^6/uL (3.50-5.40) Hemoglobin 6.7 g/dL (12.0-15.5) 7.5 g/dL (12.0-15.5) Hematocrit 20.0 % (36.0-47.0) 22.1 % (36.0-47.0) Mean Corpuscular Volume 92 fL (79-100) Mean Corpuscular Hemoglobin 31 pg (25-35) Mean Corpuscular Hemoglobin Concent 34 g/dL (31-37) Red Cell Distribution Width 15.0 % (11.5-14.5) Platelet Count 143 x10^3/uL (140-400) Neutrophils (%) (Auto) 59 % (31-73) Lymphocytes (%) (Auto) 21 % (24-48) Monocytes (%) (Auto) 15 % (0-9) Eosinophils (%) (Auto) 5 % (0-3) Basophils (%) (Auto) 1 % (0-3) Neutrophils # (Auto) 2.8 x10^3uL (1.8-7.7) Lymphocytes # (Auto) 1.0 x10^3/uL (1.0-4.8) Monocytes # (Auto) 0.7 x10^3/uL (0.0-1.1) Eosinophils # (Auto) 0.2 x10^3/uL (0.0-0.7) Basophils # (Auto) 0.1 x10^3/uL (0.0-0.2) Sodium Level 142 mmol/L (136-145) Potassium Level 4.0 mmol/L (3.5-5.1) Chloride Level 107 mmol/L (98-107) Carbon Dioxide Level 28 mmol/L (21-32) Anion Gap 7 (6-14) Blood Urea Nitrogen 17 mg/dL (7-20) Creatinine 0.8 mg/dL (0.6-1.0) Estimated GFR (Cockcroft-Gault) 70.5 BUN/Creatinine Ratio 21 (6-20) Glucose Level 212 mg/dL (70-99) Calcium Level 8.2 mg/dL (8.5-10.1) Total Bilirubin 0.4 mg/dL (0.2-1.0) Aspartate Amino Transf (AST/SGOT) 21 U/L (15-37) Alanine Aminotransferase (ALT/SGPT) 14 U/L (14-59) Alkaline Phosphatase 38 U/L (46-116) Total Protein 4.6 g/dL (6.4-8.2) Albumin 2.2 g/dL (3.4-5.0) Albumin/Globulin Ratio 0.9 (1.0-1.7) Assessment Assessment POD #3 after right hip nail for subtrochanteric femur fracture Plan Plan of Care Continue 50% weightbearing with a walker. Continue DVT prophylaxis, aspirin twice a day, for 30 days. Discharge planning, care home Office follow-up with me in 2 weeks. NADJA SAWYER MD August 01, 2018 10:56
[2018-08-01 11:00] VITALS: BP 130/55
--- NOTE | 2018-08-01 13:44 | PDOC3 ---
Discharge Summary Visit Information Date of Admission: July 28, 2018 Date of Discharge: August 02, 2018 Admitting Diagnosis: Right hip fracture Final Diagnosis Problems Medical Problems: (1) Displaced subtrochanteric fracture of right femur, initial encounter for closed fracture Status: Acute (2) Fall Status: Acute Brief Hospital Course Allergies Allergies Coded Allergies Type Severity Reaction Last Updated Verified No Known Drug Allergies 07/28/18 No Vital Signs Vital Signs Date Time Temp Pulse Resp B/P (MAP) Pulse Ox O2 Delivery O2 Flow Rate FiO2 08/01/18 09:36 89 101/49 08/01/18 07:00 98.3 18 97 Room Air 98.3 Lab Results Laboratory Tests Test 07/30/18 16:56 07/30/18 21:09 07/31/18 07:35 07/31/18 11:25 Glucose (Fingerstick) 134 mg/dL (70-99) 150 mg/dL (70-99) 121 mg/dL (70-99) 195 mg/dL (70-99) Test 07/31/18 12:47 07/31/18 13:05 07/31/18 16:41 07/31/18 20:55 Hemoglobin 7.7 g/dL (12.0-15.5) Hematocrit 23.0 % (36.0-47.0) Thyroid Stimulating Hormone (TSH) 1.208 uIU/mL (0.358-3.74) Urine Collection Type Unknown Urine Color Yellow Urine Clarity Clear Urine pH 5.5 Urine Specific [place] 1.015 Urine Protein Negative mg/dL (NEG-TRACE) Urine Glucose (UA) Negative mg/dL (NEG) Urine Ketones (Stick) 15 mg/dL (NEG) Urine Blood Negative (NEG) Urine Nitrite Negative (NEG) Urine Bilirubin Negative (NEG) Urine Urobilinogen Dipstick 0.2 mg/dL (0.2 mg/dL) Urine Leukocyte Esterase Trace (NEG) Urine RBC 0 /HPF (0-2) Urine WBC 5-10 /HPF (0-4) Urine Squamous Epithelial Cells Mod /LPF Urine Transitional Epithelial Cells Mod /LPF Urine Renal Epithelial Cells Few /LPF Urine Bacteria 0 /HPF (0-FEW) Glucose (Fingerstick) 206 mg/dL (70-99) 205 mg/dL (70-99) Test 08/01/18 04:35 08/01/18 07:35 08/01/18 07:52 08/01/18 12:01 White Blood Count 4.8 x10^3/uL (4.0-11.0) Red Blood Count 2.18 x10^6/uL (3.50-5.40) Hemoglobin 6.7 g/dL (12.0-15.5) 7.5 g/dL (12.0-15.5) Hematocrit 20.0 % (36.0-47.0) 22.1 % (36.0-47.0) Mean Corpuscular Volume 92 fL (79-100) Mean Corpuscular Hemoglobin 31 pg (25-35) Mean Corpuscular Hemoglobin Concent 34 g/dL (31-37) Red Cell Distribution Width 15.0 % (11.5-14.5) Platelet Count 143 x10^3/uL (140-400) Neutrophils (%) (Auto) 59 % (31-73) Lymphocytes (%) (Auto) 21 % (24-48) Monocytes (%) (Auto) 15 % (0-9) Eosinophils (%) (Auto) 5 % (0-3) Basophils (%) (Auto) 1 % (0-3) Neutrophils # (Auto) 2.8 x10^3uL (1.8-7.7) Lymphocytes # (Auto) 1.0 x10^3/uL (1.0-4.8) Monocytes # (Auto) 0.7 x10^3/uL (0.0-1.1) Eosinophils # (Auto) 0.2 x10^3/uL (0.0-0.7) Basophils # (Auto) 0.1 x10^3/uL (0.0-0.2) Sodium Level 142 mmol/L (136-145) Potassium Level 4.0 mmol/L (3.5-5.1) Chloride Level 107 mmol/L (98-107) Carbon Dioxide Level 28 mmol/L (21-32) Anion Gap 7 (6-14) Blood Urea Nitrogen 17 mg/dL (7-20) Creatinine 0.8 mg/dL (0.6-1.0) Estimated GFR (Cockcroft-Gault) 70.5 BUN/Creatinine Ratio 21 (6-20) Glucose Level 212 mg/dL (70-99) Calcium Level 8.2 mg/dL (8.5-10.1) Total Bilirubin 0.4 mg/dL (0.2-1.0) Aspartate Amino Transf (AST/SGOT) 21 U/L (15-37) Alanine Aminotransferase (ALT/SGPT) 14 U/L (14-59) Alkaline Phosphatase 38 U/L (46-116) Total Protein 4.6 g/dL (6.4-8.2) Albumin 2.2 g/dL (3.4-5.0) Albumin/Globulin Ratio 0.9 (1.0-1.7) Glucose (Fingerstick) 272 mg/dL (70-99) 289 mg/dL (70-99) Laboratory Tests Test 07/31/18 16:41 07/31/18 20:55 08/01/18 04:35 08/01/18 07:35 Glucose (Fingerstick) 206 mg/dL (70-99) 205 mg/dL (70-99) White Blood Count 4.8 x10^3/uL (4.0-11.0) Red Blood Count 2.18 x10^6/uL (3.50-5.40) Hemoglobin 6.7 g/dL (12.0-15.5) 7.5 g/dL (12.0-15.5) Hematocrit 20.0 % (36.0-47.0) 22.1 % (36.0-47.0) Mean Corpuscular Volume 92 fL (79-100) Mean Corpuscular Hemoglobin 31 pg (25-35) Mean Corpuscular Hemoglobin Concent 34 g/dL (31-37) Red Cell Distribution Width 15.0 % (11.5-14.5) Platelet Count 143 x10^3/uL (140-400) Neutrophils (%) (Auto) 59 % (31-73) Lymphocytes (%) (Auto) 21 % (24-48) Monocytes (%) (Auto) 15 % (0-9) Eosinophils (%) (Auto) 5 % (0-3) Basophils (%) (Auto) 1 % (0-3) Neutrophils # (Auto) 2.8 x10^3uL (1.8-7.7) Lymphocytes # (Auto) 1.0 x10^3/uL (1.0-4.8) Monocytes # (Auto) 0.7 x10^3/uL (0.0-1.1) Eosinophils # (Auto) 0.2 x10^3/uL (0.0-0.7) Basophils # (Auto) 0.1 x10^3/uL (0.0-0.2) Sodium Level 142 mmol/L (136-145) Potassium Level 4.0 mmol/L (3.5-5.1) Chloride Level 107 mmol/L (98-107) Carbon Dioxide Level 28 mmol/L (21-32) Anion Gap 7 (6-14) Blood Urea Nitrogen 17 mg/dL (7-20) Creatinine 0.8 mg/dL (0.6-1.0) Estimated GFR (Cockcroft-Gault) 70.5 BUN/Creatinine Ratio 21 (6-20) Glucose Level 212 mg/dL (70-99) Calcium Level 8.2 mg/dL (8.5-10.1) Total Bilirubin 0.4 mg/dL (0.2-1.0) Aspartate Amino Transf (AST/SGOT) 21 U/L (15-37) Alanine Aminotransferase (ALT/SGPT) 14 U/L (14-59) Alkaline Phosphatase 38 U/L (46-116) Total Protein 4.6 g/dL (6.4-8.2) Albumin 2.2 g/dL (3.4-5.0) Albumin/Globulin Ratio 0.9 (1.0-1.7) Test 08/01/18 07:52 08/01/18 12:01 Glucose (Fingerstick) 272 mg/dL (70-99) 289 mg/dL (70-99) Brief Hospital Course Ms. Villatoro, is a 73 year old F w/ PMHx DM2, HTN, HLD, osteopenia who presents for fall down stairs. Found by at the bottom of the stairs. Maybe slipped on a piece of cardboard. Reported R hip deformity. Pt was given ketamine for pain en route and she was out hard in the ER. then awake later on the floor and agitated and angry, increased meds given, and then asleep. S/p TFN with screws on 07/29/18. Pain difficult to control, better than prior to surgery. Very tearful today. Hb was 6.7-->7.5 after transfusion 07/31/18. POD #4 after right hip nail for subtrochanteric femur fracture Continue 50% weightbearing with a walker. Continue DVT prophylaxis, aspirin twice a day, for 30 days. Discharge planning, [facility] - [facility] Office follow-up with Dr. Dasilva in 2 weeks. Fall acute right hip pain hip fracture Hypothyroidism DM2 HTN Anemia - acute, s/p 1U PRBC 07/31/18 Osteopenia - on calcium and vitamin D, vitamin D is 42 Greater than 30 minutes spent on discharge Discharge Information Condition at Discharge: Improved Follow Up: Weeks (2) Disposition/Orders: D/C to Another Facility ([facility] (ph: [phone], fax: [phone])) Scheduled Aspirin (Aspirin Ec) 81 Mg Tablet.dr, 4 TAB PO BID for prophylactic for 30 Days, #240 Ref 3 Prescribed by: KAREN PADILLA MD on 08/02/18 1057 Buspirone Hcl (Buspirone Hcl) 5 Mg Tablet, 5 MG PO TID for anxiety for 30 Days, #90 Prescribed by: KAREN PADILLA MD on 08/02/18 1053 Calcium Carbonate/Vitamin D3 (Calcium + Vitamin D Tablet) 1 Each Tablet, 1 EACH PO DAILY for vitamin, (Reported) Entered as Reported by: BAILEY WILLIAM RN on 07/29/181103 Last Taken: UNKNOWN on Unknown Date & Time Last Action: Converted on 07/29/181931 by NADJA DASILVA MD Colestipol Hcl (Colestid) 1 Gm Tablet, 1 GM PO BID for unk, (Reported) Entered as Reported by: BAILEY WILLIAM RN on 07/29/18 110 Last Taken: UNKNOWN on Unknown Date & Time Last Action: Continued on 07/29/181931 by NADJA DASILVA MD Empagliflozin/Linagliptin (Glyxambi 25 mg-5 mg Tablet) 1 Each Tablet, 1 EACH PO DAILY for dm, (Reported) Entered as Reported by: BAILEY WILLIAM RN on 07/29/18 110 Last Taken: UNKNOWN on Unknown Date & Time Last Action: Converted on 07/29/181931 by NADJA DASILVA MD Glucosamine Sulfate 2KCL (Glucosamine) 1,000 Mg Tablet, 1,000 MG PO DAILY for vitamin, (Reported) Entered as Reported by: BAILEY WILLIAM RN on 07/29/181103 Last Taken: UNKNOWN on Unknown Date & Time Last Action: Converted on 07/29/181247 by KAREN PADILLA MD Glyburide (Glyburide) 5 Mg Tablet, 10 MG PO BID for DM, (Reported) Entered as Reported by: BAILEY WILLIAM RN on 07/29/181103 Last Taken: UNKNOWN on Unknown Date & Time Last Action: Continued on 07/29/181247 by KAREN PADILLA MD Insulin Glargine,Hum.rec.anlog (Lantus Solostar) 100 Unit/1 Ml Insuln.pen, 5 UNITS SQ QHS for DM2 for 30 Days, #1 Prescribed by: KAREN PADILLA MD on 08/02/18 1053 Insulin Lispro (Humalog) 100 Unit/1 Ml Insuln.pen, 3 UNITS SQ TIDAC for DM2 for 30 Days, #1 Hold for BG < 120 pre-meal Prescribed by: KAREN PADILLA MD on 08/02/18 1053 Levothyroxine Sodium (Levothyroxine Sodium) 125 Mcg Tablet, 125 MCG PO DAILYAC for THYROID SUPPLEMENT, #30 Ref 0 (Reported) Entered as Reported by: BAILEY WILLIAM RN on 07/29/181103 Last Taken: UNKNOWN on Unknown Date & Time Last Action: Converted on 07/29/181247 by KAREN PADILLA MD Lisinopril (Lisinopril) 5 Mg Tablet, 5 MG PO DAILY for FOR HYPERTENSION, #30 Ref 0 (Reported) Entered as Reported by: BAILEY WILLIAM RN on 07/29/181103 Last Taken: UNKNOWN on Unknown Date & Time Last Action: Converted on 07/29/181247 by KAREN PADILLA MD Lovastatin (Lovastatin) 20 Mg Tablet, 10 MG PO DAILY for cholesterol, (Reported) Entered as Reported by: BAILEY WILLIAM RN on 07/29/181103 Last Taken: UNKNOWN on Unknown Date & Time Last Action: Converted on 07/29/181247 by KAREN PADILLA MD Metformin Hcl (Metformin Hcl) 500 Mg Tablet, 500 MG PO BIDWMEALS for ANTI- DIABETIC, Ref 0 (Reported) Entered as Reported by: BAILEY WILLIAM RN on 07/29/181103 Last Taken: UNKNOWN on Unknown Date & Time Last Action: Converted on 07/29/181931 by NADJA DASILVA MD Multivitamin (Multivitamins) 1 Each Tablet, 1 TAB PO DAILY for vitamin, #30 Ref 2 (Reported) Entered as Reported by: BAILEY WILLIAM RN on 07/29/181103 Last Taken: UNKNOWN on Unknown Date & Time Last Action: New Order on 07/29/181103 by BAILEY WILLIAM RN [place]-3 Fatty Acids/Fish Oil (Fish Oil 1,000 Mg Capsule) 1 Each Capsule, 1 EACH PO DAILY for vitmain, (Reported) Entered as Reported by: BAILEY WILLIAM RN on 07/29/181103 Last Taken: UNKNOWN on Unknown Date & Time Last Action: Continued on 07/29/181247 by KAREN PADILLA MD Oxybutynin Chloride (Oxybutynin Chloride) 5 Mg Tablet, 5 MG PO BID for kidney, (Reported) Entered as Reported by: BAILEY WILLIAM RN on 07/29/181103 Last Taken: UNKNOWN on Unknown Date & Time Last Action: Continued on 07/29/181247 by KAREN PADILLA MD Pioglitazone Hcl (Actos) 30 Mg Tablet, 30 MG PO DAILY for dm, (Reported) Entered as Reported by: BAILEY WILLIAM RN on 07/29/181103 Last Taken: UNKNOWN on Unknown Date & Time Last Action: Converted on 07/29/181931 by NADJA DASILVA MD Propranolol Hcl (Propranolol Hcl) 40 Mg Tablet, 40 MG PO DAILY for htn, (Reported) Entered as Reported by: BAILEY WILLIAM RN on 07/29/181103 Last Taken: UNKNOWN on Unknown Date & Time Last Action: Converted on 07/29/181247 by KAREN PADILLA MD Selenomethionine (Selenium) 200 Mcg Tablet, 200 MCG PO DAILY for vitamin, (Reported) Entered as Reported by: BAILEY WILLIAM RN on 07/29/181103 Last Taken: UNKNOWN on Unknown Date & Time Last Action: Converted on 07/29/181247 by KAREN PADILLA MD Vit A,C & E/Lutein/Minerals (Ocuvite Tablet) 1 Each Tablet, 1 EACH PO DAILY for vitamin, (Reported) Entered as Reported by: BAILEY WILLIAM RN on 07/29/181103 Last Taken: UNKNOWN on Unknown Date & Time Last Action: Continued on 07/29/181247 by KAREN PADILLA MD Scheduled PRN Hydrocodone Bit/Acetaminophen (Hydrocodone-Apap 7.5-325 ) 1 Tab Tablet, 1-2 TAB PO PRN Q4HRS PRN for PAIN for 6 Days, #36 Prescribed by: KAREN PADILLA MD on 08/02/18 1053 Discontinued Medications Aspirin (Aspirin Ec) 81 Mg Tablet.dr, 1 TAB PO DAILY for prophylactic , #30 Ref 3 (Reported) Discontinued Reason: Prescription changed Entered as Reported by: BAILEY WILLIAM RN on 07/29/181103 Last Taken: UNKNOWN on Unknown Date & Time Last Action: New Order on 07/29/181103 by NIDHI STEVEN CHRISTOPHER S MD August 01, 2018 13:44
[2018-08-01] MEDS: HYDROcodone/APAP 7.5/325MG 1 TAB TABLET PO PRN (14:24)
[2018-08-01 15:00] VITALS: BP 111/51
[2018-08-01 19:00] VITALS: BP 112/57
[2018-08-01] MEDS: ATORVASTATIN CALCIUM 10 MG TABLET. PO SCH (21:07)
[2018-08-01] MEDS: INSULIN GLARGINE 300 UNITS/3 ML INSULN.PEN. SQ SCH (21:13)
[2018-08-01 23:00] VITALS: BP 105/49
[2018-08-02] MEDS: HYDROcodone/APAP 7.5/325MG 1 TAB TABLET PO PRN ×4 (00:38→13:58)
[2018-08-02 03:00] VITALS: BP 103/54
[2018-08-02] MEDS: IV NORMAL SALINE 1000ML BAG 1,000 ML IV SCH (03:09)
[2018-08-02] MEDS: LEVOTHYROXINE 125 MCG TABLET PO SCH (06:15)
[2018-08-02 07:00] VITALS: BP 102/52
--- NOTE | 2018-08-02 08:41 | PDOC ---
PROGRESS NOTES Chief Complaint Chief Complaint fall acute right hip pain hip fracture Hypothyroidism DM2 HTN Anemia - acute, s/p 1U PRBC 07/31/18 Osteopenia - on calcium and vitamin D, vitamin D is 42 pod # 3 Restarted home meds Lovenox post op iv pain control prn PT/OT History of Present Illness History of Present Illness Ms. Villatoro, is a 73 year old F w/ PMHx DM2, HTN, HLD, osteopenia who presents for fall down stairs. Found by at the bottom of the stairs. Maybe slipped on a piece of cardboard. Reported R hip deformity. Pt was given ketamine for pain en route and she was out hard in the ER. then awake later on the floor and agitated and angry, increased meds given, and then asleep. S/p TFN with screws on 07/29/18. Pain difficult to control, better than prior to surgery. Less tearful today. Hb was 6.7-->7.5 after transfusion 07/31/18. She is able to ambulate better, ready to leave the hospital Vitals Vitals Vital Signs Date Time Temp Pulse Resp B/P (MAP) Pulse Ox O2 Delivery O2 Flow Rate FiO2 08/02/18 07:00 98.1 60 18 102/52 (69) 96 Room Air 98.1 08/01/18 20:00 2.0 Physical Exam General: Alert, No acute distress Heart: Regular rate Abdomen: Soft Extremities: Other (the right lower extremity has trace diffuse edema. Dorsalis pedis pulse is palpable. She has intact sensation of the toes. She was barely able to dorsiflex and plantarflex the toes, likely decreased due to pain, I do not detect any specific nerve or artery injury.) Skin: No rashes, No breakdown, Other (the skin is intact over the fracture. There was no ecchymosis.) Labs LABS Laboratory Tests Test 08/01/18 12:01 08/01/18 17:01 08/01/18 20:39 08/02/18 07:46 Glucose (Fingerstick) 289 mg/dL (70-99) 165 mg/dL (70-99) 241 mg/dL (70-99) 232 mg/dL (70-99) Assessment and Plan Assessmemt and Plan Problems Medical Problems: (1) Displaced subtrochanteric fracture of right femur, initial encounter for closed fracture Status: Acute (2) Fall Status: Acute Comment Review of Relevant I have reviewed the following items emilia (where applicable) has been applied. Labs Laboratory Tests Test 07/31/18 11:25 07/31/18 12:47 07/31/18 13:05 07/31/18 16:41 Glucose (Fingerstick) 195 mg/dL (70-99) 206 mg/dL (70-99) Hemoglobin 7.7 g/dL (12.0-15.5) Hematocrit 23.0 % (36.0-47.0) Thyroid Stimulating Hormone (TSH) 1.208 uIU/mL (0.358-3.74) Urine Collection Type Unknown Urine Color Yellow Urine Clarity Clear Urine pH 5.[address] [place] 1.015 Urine Protein Negative mg/dL (NEG-TRACE) Urine Glucose (UA) Negative mg/dL (NEG) Urine Ketones (Stick) 15 mg/dL (NEG) Urine Blood Negative (NEG) Urine Nitrite Negative (NEG) Urine Bilirubin Negative (NEG) Urine Urobilinogen Dipstick 0.2 mg/dL (0.2 mg/dL) Urine Leukocyte Esterase Trace (NEG) Urine RBC 0 /HPF (0-2) Urine WBC 5-10 /HPF (0-4) Urine Squamous Epithelial Cells Mod /LPF Urine Transitional Epithelial Cells Mod /LPF Urine Renal Epithelial Cells Few /LPF Urine Bacteria 0 /HPF (0-FEW) Test 07/31/18 20:55 08/01/18 04:35 08/01/18 07:35 08/01/18 07:52 Glucose (Fingerstick) 205 mg/dL (70-99) 272 mg/dL (70-99) White Blood Count 4.8 x10^3/uL (4.0-11.0) Red Blood Count 2.18 x10^6/uL (3.50-5.40) Hemoglobin 6.7 g/dL (12.0-15.5) 7.5 g/dL (12.0-15.5) Hematocrit 20.0 % (36.0-47.0) 22.1 % (36.0-47.0) Mean Corpuscular Volume 92 fL (79-100) Mean Corpuscular Hemoglobin 31 pg (25-35) Mean Corpuscular Hemoglobin Concent 34 g/dL (31-37) Red Cell Distribution Width 15.0 % (11.5-14.5) Platelet Count 143 x10^3/uL (140-400) Neutrophils (%) (Auto) 59 % (31-73) Lymphocytes (%) (Auto) 21 % (24-48) Monocytes (%) (Auto) 15 % (0-9) Eosinophils (%) (Auto) 5 % (0-3) Basophils (%) (Auto) 1 % (0-3) Neutrophils # (Auto) 2.8 x10^3uL (1.8-7.7) Lymphocytes # (Auto) 1.0 x10^3/uL (1.0-4.8) Monocytes # (Auto) 0.7 x10^3/uL (0.0-1.1) Eosinophils # (Auto) 0.2 x10^3/uL (0.0-0.7) Basophils # (Auto) 0.1 x10^3/uL (0.0-0.2) Sodium Level 142 mmol/L (136-145) Potassium Level 4.0 mmol/L (3.5-5.1) Chloride Level 107 mmol/L (98-107) Carbon Dioxide Level 28 mmol/L (21-32) Anion Gap 7 (6-14) Blood Urea Nitrogen 17 mg/dL (7-20) Creatinine 0.8 mg/dL (0.6-1.0) Estimated GFR (Cockcroft-Gault) 70.5 BUN/Creatinine Ratio 21 (6-20) Glucose Level 212 mg/dL (70-99) Calcium Level 8.2 mg/dL (8.5-10.1) Total Bilirubin 0.4 mg/dL (0.2-1.0) Aspartate Amino Transf (AST/SGOT) 21 U/L (15-37) Alanine Aminotransferase (ALT/SGPT) 14 U/L (14-59) Alkaline Phosphatase 38 U/L (46-116) Total Protein 4.6 g/dL (6.4-8.2) Albumin 2.2 g/dL (3.4-5.0) Albumin/Globulin Ratio 0.9 (1.0-1.7) Test 08/01/18 12:01 08/01/18 17:01 08/01/18 20:39 08/02/18 07:46 Glucose (Fingerstick) 289 mg/dL (70-99) 165 mg/dL (70-99) 241 mg/dL (70-99) 232 mg/dL (70-99) Laboratory Tests Test 08/01/18 12:01 08/01/18 17:01 08/01/18 20:39 08/02/18 07:46 Glucose (Fingerstick) 289 mg/dL (70-99) 165 mg/dL (70-99) 241 mg/dL (70-99) 232 mg/dL (70-99) Microbiology 07/31/18 Urine Culture - Final, Complete 07/31/18 Urine Culture Result 1 (HILARY) - Final, Complete Medications Current Medications Fentanyl Citrate (Fentanyl 2ml Vial) 100 mcg STK-MED ONCE .ROUTE ; Start 07/28/18 at 15:44; Stop 07/28/18 at 15:45; Status DC Iohexol (Omnipaque 300 Mg/ml) 75 ml 1X ONCE IV Last administered on 07/28/18at 16:22; Start 07/28/18 at 16:15; Stop 07/28/18 at 16:25; Status DC Fentanyl Citrate (Fentanyl 2ml Vial) 50 mcg 1X ONCE IV Last administered on 07/28/18at 16:34; Start 07/28/18 at 16:15; Stop 07/28/18 at 16:25; Status DC Info (CONTRAST GIVEN -- Rx MONITORING) 1 each PRN DAILY PRN MC SEE COMMENTS; Start 07/28/18 at 16:15; Stop 07/30/18 at 16:14; Status DC Iohexol (Omnipaque 300 Mg/ml) 100 ml STK-MED ONCE .ROUTE ; Start 07/28/18 at 16:08; Stop 07/28/18 at 16:09; Status DC Ondansetron HCl (Zofran) 4 mg 1X ONCE IV Last administered on 07/28/18at 16:34; Start 07/28/18 at 16:15; Stop 07/28/18 at 16:25; Status DC Ondansetron HCl (Zofran) 4 mg STK-MED ONCE .ROUTE ; Start 07/28/18 at 16:12; Stop 07/28/18 at 16:13; Status DC Fentanyl Citrate (Fentanyl 2ml Vial) 50 mcg 1X ONCE IV Last administered on 07/28/18at 16:44; Start 07/28/18 at 16:45; Stop 07/28/18 at 16:46; Status DC Hydromorphone HCl (Dilaudid) 0.5 mg PRN Q2HR PRN IV SEVERE PAIN LAST CHOICE Last administered on 07/30/18at 10:58; Start 07/28/18 at 17:00 Ropivacaine 53.3 ml/Epinephrine HCl 0.6 mg/ Morphine Sulfate 5 mg/Sodium Chloride 100 ml @ 100 mls/hr 1X ONCE INT ART Last administered on 07/29/18at 18:19; Start 07/29/18 at 06:00; Stop 07/29/18 at 07:00; Status DC Fentanyl Citrate (Fentanyl 2ml Vial) 50 mcg PRN Q1HR PRN IV SEVERE PAIN Last administered on 07/30/18at 00:48; Start 07/28/18 at 18:45; Stop 08/01/18 at 13:10; Status DC Ondansetron HCl (Zofran) 4 mg PRN Q6HRS PRN IV NAUSEA/VOMITING; Start 07/28/18 at 20:15; Stop 07/30/18 at 08:52; Status DC Fentanyl Citrate (Fentanyl 2ml Vial) 75 mcg PRN Q2HR PRN IV SEVERE PAIN 7-10 Last administered on 07/28/18at 22:49; Start 07/28/18 at 20:30; Stop 08/01/18 at 13:10; Status DC Fentanyl Citrate (Fentanyl 2ml Vial) 100 mcg 1X ONCE IV ; Start 07/28/18 at 20:30; Stop 07/28/18 at 20:33; Status DC Sodium Chloride 1,000 ml @ 125 mls/hr Q8H IV Last administered on 07/31/18at 21:03; Start 07/28/18 at 20:30; Stop 08/02/18 at 04:19; Status DC Ketorolac Tromethamine (Toradol 15mg Vial) 15 mg PRN Q6HRS PRN IV MILD PAIN Last administered on 08/01/18at 21:44; Start 07/28/18 at 21:15; Stop 08/02/18 at 21:14 Insulin Glargine (Lantus) 5 units QHS SQ Last administered on 5/18/19at 21:13; Start 07/29/18 at 21:00 Insulin Human Lispro (HumaLOG) 0-7 UNITS TIDWMEALS SQ Last administered on 08/01/18 13:07; Start 07/29/18 at 12:00 Dextrose (Dextrose 50%-Water Syringe) 12.5 gm PRN Q15MIN PRN IV SEE COMMENTS; Start 07/29/18 at 08:30 Glyburide (Diabeta) 10 mg BIDAC PO Last administered on 08/01/18 18:06; Start 07/29/18 at 16:30 Fish Oil (Fish Oil) 1,000 mg DAILY PO Last administered on 08/01/18 09:30; Start 07/29/18 at 13:00 Oxybutynin Chloride (Ditropan) 5 mg BID PO Last administered on 08/01/18 21:06; Start 07/29/18 at 21:00 Multivitamins/ Minerals (I-María Elena) 1 tab DAILY PO ; Start 07/29/18 at 13:00; Stop 07/30/18 at 08:27; Status DC Non-Formulary Medication (Glucosamine Sulfate 2KCL (Glucosamine)) 1,000 mg DAILY PO ; Start 07/30/18 at 09:00; Status UNV Levothyroxine Sodium (Synthroid) 125 mcg DAILY06 PO Last administered on 08/02/18 06:15; Start 07/29/18 at 15:30 Lisinopril (Prinivil) 5 mg DAILY PO Last administered on 08/01/18at 09:36; Start 07/29/18 at 13:00 Atorvastatin Calcium (Lipitor) 5 mg QHS PO Last administered on 08/01/18 21:07; Start 07/29/18 at 21:00 Propranolol HCl (Inderal) 40 mg DAILY PO Last administered on 08/01/18 09:32; Start 07/29/18 at 13:00 Non-Formulary Medication (Selenomethionine (Selenium)) 200 mcg DAILY PO ; Start 07/30/18 at 09:00; Status UNV Cefazolin Sodium/ Dextrose 50 ml @ 100 mls/hr 1X PREOP PRN IV SEE COMMENTS Last administered on 07/29/18 17:47; Start 07/29/18 at 13:15; Stop 07/30/18 at 08:53; Status DC Ropivacaine 53.3 ml/Epinephrine HCl 0.6 mg/ Morphine Sulfate 5 mg/Sodium Chloride 100 ml @ 100 mls/hr 1X ONCE INT ART ; Start 07/29/18 at 13:15; Stop 07/29/18 at 14:14; Status DC Sevoflurane (Ultane) 30 ml STK-MED ONCE IH ; Start 07/29/18 at 15:39; Stop 07/29/18 at 15:40; Status DC Dexamethasone Sodium Phosphate (Decadron) 4 mg STK-MED ONCE .ROUTE ; Start 07/29/18 at 15:40; Stop 07/29/18 at 15:41; Status DC Propofol 20 ml @ As Directed STK-MED ONCE IV ; Start 07/29/18 at 15:40; Stop 07/29/18 at 15:41; Status DC Lidocaine HCl (Lidocaine Pf 2% Vial) 5 ml STK-MED ONCE .ROUTE ; Start 07/29/18 at 15:40; Stop 07/29/18 at 15:41; Status DC Ondansetron HCl (Zofran) 4 mg STK-MED ONCE .ROUTE ; Start 07/29/18 at 15:40; Stop 07/29/18 at 15:41; Status DC Phenylephrine HCl (Perfecto-Synephrine Inj) 10 mg STK-MED ONCE .ROUTE ; Start 07/29/18 at 15:40; Stop 07/29/18 at 15:41; Status DC Metoprolol Tartrate (Lopressor Vial) 5 mg STK-MED ONCE IVP ; Start 07/29/18 at 15:52; Stop 07/29/18 at 15:53; Status DC Cefazolin Sodium (Ancef) 1 gm STK-MED ONCE .ROUTE ; Start 07/29/18 at 16:29; Stop 07/29/18 at 16:30; Status DC Cefazolin Sodium (Ancef) 1 gm STK-MED ONCE .ROUTE ; Start 07/29/18 at 16:29; Stop 07/29/18 at 16:30; Status DC Cefazolin Sodium (Ancef) 1 gm STK-MED ONCE .ROUTE ; Start 07/29/18 at 16:29; Stop 07/29/18 at 16:30; Status DC Midazolam HCl (Versed) 2 mg STK-MED ONCE .ROUTE ; Start 07/29/18 at 16:45; Stop 07/29/18 at 16:46; Status DC Midazolam HCl (Versed) 0.5 mg PRN Q10MIN PRN IV anxiety Last administered on 07/29/18at 17:05; Start 07/29/18 at 17:00; Stop 07/30/18 at 08:52; Status DC Cefazolin Sodium (Ancef) 1 gm STK-MED ONCE .ROUTE ; Start 07/29/18 at 17:17; Stop 07/29/18 at 17:18; Status DC Prochlorperazine Edisylate (Compazine) 10 mg STK-MED ONCE .ROUTE ; Start 07/29/18 at 19:12; Stop 07/29/18 at 19:13; Status DC Ondansetron HCl (Zofran) 4 mg PRN Q6HRS PRN IV NAUSEA/VOMITING; Start 07/29/18 at 19:15; Stop 07/30/18 at 08:52; Status DC Fentanyl Citrate (Fentanyl 2ml Vial) 25 mcg PRN Q5MIN PRN IV MILD PAIN 1-3; Start 07/29/18 at 19:15; Stop 07/30/18 at 08:52; Status DC Fentanyl Citrate (Fentanyl 2ml Vial) 50 mcg PRN Q5MIN PRN IV MODERATE TO SEVERE PAIN Last administered on 07/29/18at 19:44; Start 07/29/18 at 19:15; Stop 07/30/18 at 08:53; Status DC Morphine Sulfate (Morphine Sulfate) 1 mg PRN Q10MIN PRN IV SEVERE PAIN 7-10; Start 07/29/18 at 19:15; Stop 07/30/18 at 08:53; Status DC Ringer's Solution 1,000 ml @ 30 mls/hr Q24H IV ; Start 07/29/18 at 19:14; Stop 07/30/18 at 07:13; Status DC Lidocaine HCl (Xylocaine-Mpf 1% 2ml Vial) 2 ml PRN 1X PRN ID PRIOR TO IV START; Start 07/29/18 at 19:15; Stop 07/30/18 at 08:53; Status DC Hydromorphone HCl (Dilaudid) 0.5 mg PRN Q10MIN PRN IV SEV PAIN, Second choice; Start 07/29/18 at 19:15; Stop 07/30/18 at 08:53; Status DC Prochlorperazine Edisylate (Compazine) 5 mg PACU PRN PRN IV NAUSEA, MRX1 Last administered on 07/29/18at 19:25; Start 07/29/18 at 19:15; Stop 07/30/18 at 08:53; Status DC Oxycodone HCl (Roxicodone) 5 mg PRN Q3HRS PRN PO PAIN; Start 07/29/18 at 19:30 Morphine Sulfate (Morphine Sulfate) 2 mg PRN Q1HR PRN IV PAIN; Start 07/29/18 at 19:30 Fentanyl Citrate (Fentanyl 2ml Vial) 25 mcg PRN Q1HR PRN IV PAIN; Start 07/29/18 at 19:30 Multivitamins (Thera M Plus) 1 tab DAILY PO Last administered on 08/01/18at 09:31; Start 07/30/18 at 09:00 Senna/Docusate Sodium (Senna Plus) 1 tab DAILY PO Last administered on 08/01/18at 09:31; Start 07/30/18 at 09:00 Polyethylene Glycol (miraLAX PACKET) 17 gm PRN DAILY PRN PO CONSTIPATION; Start 07/29/18 at 19:30 Vitamin D (Vitamin D3) 1,000 unit DAILY PO Last administered on 08/01/18at 09:34; Start 07/30/18 at 09:00 Sodium Chloride 1,000 ml @ 75 mls/hr [id number] IV ; Start 07/29/18 at 19:27; Stop 07/30/18 at 09:51; Status DC Ondansetron HCl (Zofran) 4 mg PRN Q4HRS PRN IV NAUSEA/VOMITING; Start 07/29/18 at 19:30 Magnesium Hydroxide (Milk Of Magnesia) 2,400 mg 1X PRN PRN PO CONSTIPATION; Start 07/30/18 at 06:00; Stop 07/31/18 at 05:59; Status DC Bisacodyl (Dulcolax Supp) 10 mg 1X PRN PRN [place] CONSTIPATION; Start 07/30/18 at 16:00; Stop 07/31/18 at 15:59; Status DC Acetaminophen/ Hydrocodone Bitart (Lortab 7.5/325) 1 tab PRN Q4HRS PRN PO PAIN Last administered on 08/02/18 06:20; Start 07/29/18 at 19:30 Morphine Sulfate (Morphine Sulfate) 4 mg PRN Q2HR PRN IV PAIN; Start 07/29/18 at 19:30 Acetaminophen/ Hydrocodone Bitart (Lortab 7.5/325) 2 tab PRN Q4HRS PRN PO PAIN Last administered on 07/31/18at 22:50; Start 07/29/18 at 19:30 Dextrose (Dextrose 50%-Water Syringe) 12.5 gm PRN Q15MIN PRN IV SEE COMMENTS; Start 07/29/18 at 19:30; Status Cancel Cefazolin Sodium/ Dextrose 50 ml @ 100 mls/hr Q6H IV Last administered on 07/30/18 08:19; Start 07/29/18 at 20:00; Stop 07/30/18 at 08:29; Status DC Aspirin (Ecotrin) 325 mg BID PO Last administered on 08/01/18 21:07; Start 07/29/18 at 21:00 Colestipol HCl (Colestid) 1 gm BID PO Last administered on 08/01/18 21:06; Start 07/29/18 at 21:00 Vitamin D (Vitamin D3) 1,000 unit DAILY PO ; Start 07/30/18 at 09:00; Stop 07/30/18 at 09:00; Status DC Non-Formulary Medication (Empagliflozin/ Linagliptin (Glyxambi 25 mg-5 mg Tablet)) 1 each DAILY PO ; Start 07/30/18 at 09:00; Stop 08/01/18 at 17:38; Status DC Metformin HCl (Glucophage) 500 mg BIDWMEALS PO Last administered on 08/01/18 18:06; Start 07/30/18 at 17:00 Pioglitazone HCl (Actos) 30 mg DAILY PO Last administered on 08/01/18at 09:33; Start 07/30/18 at 09:00 Insulin Human Lispro (HumaLOG) 3 units TIDAC SQ Last administered on 08/01/18 18:10; Start 07/30/18 at 09:00 Ringer's Solution 1,000 ml @ 1,000 mls/hr 1X ONCE IV Last administered on 07/30/18at 11:13; Start 07/30/18 at 11:30; Stop 07/30/18 at 12:29; Status DC Diphenhydramine HCl (Benadryl) 12.5 mg PRN Q6HRS PRN PO ITCHING; Start 07/30/18 at 17:15; Stop 07/30/18 at 17:15; Status DC Diphenhydramine HCl (Benadryl Oral Elixir) 12.5 mg PRN Q6HRS PRN PO ITCHING Last administered on 07/30/18at 17:14; Start 07/30/18 at 17:15 Buspirone HCl (Buspar) 5 mg TID PO Last administered on 08/01/18at 21:06; Start 07/31/18 at 09:00 Active Scripts Active Reported Aspirin Ec (Aspirin) 81 Mg Tablet.dr 1 Tab PO DAILY Ocuvite Tablet (Vit A,C & E/Lutein/Minerals) 1 Each Tablet 1 Each PO DAILY Fish Oil 1,000 Mg Capsule ([place]-3 Fatty Acids/Fish Oil) 1 Each Capsule 1 Each PO DAILY Glucosamine (Glucosamine Sulfate 2KCL) 1,000 Mg Tablet 1,000 Mg PO DAILY Selenium (Selenomethionine) 200 Mcg Tablet 200 Mcg PO DAILY Glyxambi 25 mg-5 mg Tablet (Empagliflozin/Linagliptin) 1 Each Tablet 1 Each PO DAILY Oxybutynin Chloride 5 Mg Tablet 5 Mg PO BID Multivitamins (Multivitamin) 1 Each Tablet 1 Tab PO DAILY Metformin Hcl 500 Mg Tablet 500 Mg PO BIDWMEALS Calcium + Vitamin D Tablet (Calcium Carbonate/Vitamin D3) 1 Each Tablet 1 Each PO DAILY Colestid (Colestipol Hcl) 1 Gm Tablet 1 Gm PO BID Actos (Pioglitazone Hcl) 30 Mg Tablet 30 Mg PO DAILY Lisinopril 5 Mg Tablet 5 Mg PO DAILY Lovastatin 20 Mg Tablet 10 Mg PO DAILY Propranolol Hcl 40 Mg Tablet 40 Mg PO DAILY Levothyroxine Sodium 125 Mcg Tablet 125 Mcg PO DAILYAC Glyburide 5 Mg Tablet 10 Mg PO BID Vitals/I & O Vital Sign - Last 24 Hours 08/01/18 08/01/18 08/01/18 08/01/18 09:32 09:36 11:00 14:24 Temp 98.2 98.2 Pulse 89 89 94 Resp 18 B/P (MAP) 101/49 101/49 130/55 (80) Pulse Ox 99 O2 Delivery Room Air Room Air 08/01/18 08/01/18 08/01/18 08/01/18 15:00 15:30 19:00 20:00 Temp 98.5 98.3 98.5 98.3 Pulse 71 86 Resp 18 18 B/P (MAP) 111/51 (71) 112/57 (75) Pulse Ox 98 97 O2 Delivery Room Air Room Air Room Air Room Air O2 Flow Rate 2.0 08/01/18 08/02/18 08/02/18 23:00 03:00 07:00 Temp 98.5 98.3 98.1 98.5 98.3 98.1 Pulse 63 61 60 Resp 18 18 18 B/P (MAP) 105/49 (67) 103/54 (70) 102/52 (69) Pulse Ox 96 97 96 O2 Delivery Room Air Room Air Room Air Intake and Output 08/01/18 08/01/18 08/02/18 14:59 22:59 06:59 Intake Total 0 ml Balance 0 ml KAREN PADILLA MD August 02, 2018 08:41
[2018-08-02] MEDS: PROPRANOLOL 40 MG TABLET. PO SCH (09:00)
[2018-08-02] MEDS: LISINOPRIL 5 MG TABLET. PO SCH (09:00)
[2018-08-02] MEDS: glyBURIDE 5 MG TABLET PO SCH (09:45)
[2018-08-02] MEDS: SENNOSIDES/DOCUSATE 8.6/50MG TABLET. PO SCH (09:45)
[2018-08-02] MEDS: PIOGLITAZONE 15 MG TABLET. PO SCH (09:46)
[2018-08-02] MEDS: OMEGA-3 FATTY ACIDS/FISH OIL 1,000 MG CAPSULE. PO SCH (09:47)
[2018-08-02] MEDS: busPIRone 5 MG TABLET. PO SCH ×2 (09:47→13:55)
[2018-08-02] MEDS: CHOLECALCIFEROL (VITAMIN D3) 1,000 UNIT TABLET PO SCH (09:47)
[2018-08-02] MEDS: COLESTIPOL HCL 1 GM TABLET PO SCH (09:48)
[2018-08-02] MEDS: MULTIVITAMIN with MINERAL TABLET. PO SCH (09:48)
[2018-08-02] MEDS: OXYBUTYNIN CHLORIDE 5 MG TABLET PO SCH (09:49)
[2018-08-02] MEDS: metFORMIN 500 MG TABLET PO SCH (09:49)
[2018-08-02] MEDS: ASPIRIN ENTERIC COATED 325 MG TABLET.DR. PO SCH (09:49)
[2018-08-02] MEDS: INSULIN LISPRO 300 UNITS/3 ML INSULN.PEN. SQ SCH ×4 (10:00→14:03)
[2018-08-02] MEDS ORDERED: HYDR-2765 PO (10:53)
[2018-08-02] MEDS ORDERED: BUSP5TAB PO (10:53)
[2018-08-02] MEDS ORDERED: INSU100I13 SQ (10:53)
[2018-08-02] MEDS ORDERED: INSU100I11 SQ (10:53)
[2018-08-02] MEDS ORDERED: ASPI-612 PO ×2 (10:53→10:57)
--- NOTE | 2018-08-02 10:57 | SNU/HH DC ---
DISCHARGE ORDERS DISCHARGE INFORMATION: DISCHARGE DATE: August 02, 2018 FINAL DIAGNOSIS Problems Medical Problems: (1) Displaced subtrochanteric fracture of right femur, initial encounter for closed fracture Status: Acute (2) Fall Status: Acute CONDITION ON DISCHARGE: Stable CODE STATUS: Code Status: Full SENIOR CARE: SNF STAY <30 DAYS: Yes POST DISCHARGE ORDERS: ACTIVITY ORDERS: Activity as tolerated WEIGHT BEARING STATUS: Other, see below (50% weight bearing) DIET AFTER DISCHARGE: ADA WOUND/INCISION CARE: Ice to area for comfort, Change dressing, Reinforce dressing PRN CHECKS AFTER DISCHARGE: CHECKS AFTER DISCHARGE: Check blood press - daily, Check blood sugar, ac/hs, Check your Temp as needed FOLLOW-UP: PHYSICIAN FOLLOW-UP: Dr Kp Dasilva - 2 weeks ADDITIONAL FOLLOW-UP: Staple removal 08/10/2018 LAB ORDERS FOR FOLLOW-UP: CBC on 08/04/2018 TREATMENT/EQUIPMENT ORDERS: ADAPTIVE EQUIPMENT NEEDED: Front wheeled walker Physical Therapy For: Evalulation/Treatment Occupational Therapy For: Evaluation/Treatment DISCHARGE MEDICATIONS: Home Meds Active Scripts Aspirin (ASPIRIN EC) 81 Mg Tablet.dr, 4 TAB PO BID for prophylactic for 30 Days, #240 TAB 3 Refills Prov:KAREN PADILLA MD 08/02/18 Insulin Lispro (HUMALOG) 100 Unit/1 Ml Insuln.pen, 3 UNITS SQ TIDAC for DM2 for 30 Days, #1 EACH Hold for BG < 120 pre-meal Prov:KAREN PADILLA MD 08/02/18 Insulin Glargine,Hum.rec.anlog (LANTUS SOLOSTAR) 100 Unit/1 Ml Insuln.pen, 5 UNITS SQ QHS for DM2 for 30 Days, #1 EACH Prov:KAREN PADILLA MD 08/02/18 Buspirone Hcl (BUSPIRONE HCL) 5 Mg Tablet, 5 MG PO TID for anxiety for 30 Days, #90 TAB Prov:KAREN PADILLA MD 08/02/18 Hydrocodone Bit/Acetaminophen (HYDROCODONE-APAP 7.5-325 ) 1 Tab Tablet, 1-2 TAB PO PRN Q4HRS PRN for PAIN for 6 Days, #36 TAB Prov:KAREN PADILLA MD 08/02/18 Reported Medications Vit A,C & E/Lutein/Minerals (OCUVITE TABLET) 1 Each Tablet, 1 EACH PO DAILY for vitamin, TAB 07/29/18 [place]-3 Fatty Acids/Fish Oil (FISH OIL 1,000 MG CAPSULE) 1 Each Capsule, 1 EACH PO DAILY for vitmain, CAP 07/29/18 Glucosamine Sulfate 2KCL (GLUCOSAMINE) 1,000 Mg Tablet, 1000 MG PO DAILY for vitamin, TAB 07/29/18 Selenomethionine (SELENIUM) 200 Mcg Tablet, 200 MCG PO DAILY for vitamin, TAB 07/29/18 Empagliflozin/Linagliptin (Glyxambi 25 mg-5 mg Tablet) 1 Each Tablet, 1 EACH PO DAILY for dm, TAB 07/29/18 Oxybutynin Chloride (OXYBUTYNIN CHLORIDE) 5 Mg Tablet, 5 MG PO BID for kidney, TAB 07/29/18 Multivitamin (MULTIVITAMINS) 1 Each Tablet, 1 TAB PO DAILY for vitamin, #30 TAB 2 Refills 07/29/18 Metformin Hcl (METFORMIN HCL) 500 Mg Tablet, 500 MG PO BIDWMEALS for ANTI- DIABETIC, TAB 0 Refills 07/29/18 Calcium Carbonate/Vitamin D3 (CALCIUM + VITAMIN D TABLET) 1 Each Tablet, 1 EACH PO DAILY for vitamin, TAB 07/29/18 Colestipol Hcl (COLESTID) 1 Gm Tablet, 1 GM PO BID for unk, TAB 07/29/18 Pioglitazone Hcl (ACTOS) 30 Mg Tablet, 30 MG PO DAILY for dm, TAB 07/29/18 Lisinopril (LISINOPRIL) 5 Mg Tablet, 5 MG PO DAILY for FOR HYPERTENSION, #30 TAB 0 Refills 07/29/18 Lovastatin (LOVASTATIN) 20 Mg Tablet, 10 MG PO DAILY for cholesterol, TAB 07/29/18 Propranolol Hcl (PROPRANOLOL HCL) 40 Mg Tablet, 40 MG PO DAILY for htn, TAB 07/29/18 Levothyroxine Sodium (LEVOTHYROXINE SODIUM) 125 Mcg Tablet, 125 MCG PO DAILYAC for THYROID SUPPLEMENT, #30 TAB 0 Refills 07/29/18 Glyburide (GLYBURIDE) 5 Mg Tablet, 10 MG PO BID for DM, TAB 07/29/18 Discontinued Reported Medications Aspirin (ASPIRIN EC) 81 Mg Tablet., 1 TAB PO DAILY for prophylactic , #30 TAB 3 Refills 07/29/18 KAREN PADILLA MD August 02, 2018 10:57
[2018-08-02 11:00] VITALS: BP 124/55
--- NOTE | 2018-08-02 14:21 | NUR ---
Pt was discharged to [facility] at 1420 today in stable condition with all personal belongings. Report called in to Jamia TERRELL, all pertinent information faxed to [facility], packet given to transportation personnel. Pt was escorted by , accompanied by family and facility transportation personnel and driven by van to [facility] while her followed behind in their vehicle.
== END 2018-08-02 14:20 | DRG 480 ==
LOC: SURG 15:13 → 4 NORTH 15:48
PROVIDERS: ADMIT Internal Medicine; ATTEND Internal Medicine
PROC: 0QS606Z Reposition Right Upper Femur with Intramedullary Internal Fixation Device, Open Approach (ICD-10-PCS; principal; 2018-07-29 16:15)
PROC: 30233N1 Transfusion of Nonautologous Red Blood Cells into Peripheral Vein, Percutaneous Approach (ICD-10-PCS; 2018-07-31)
DX: S72.21XA Displaced subtrochanteric fracture of right femur, initial encounter for closed fracture (principal); G92 Toxic encephalopathy; D62 Acute posthemorrhagic anemia; E11.9 Type 2 diabetes mellitus without complications; E78.5 Hyperlipidemia, unspecified; I10 Essential (primary) hypertension; E03.9 Hypothyroidism, unspecified; M85.80 Other specified disorders of bone density and structure, unspecified site; W10.8XXA Fall (on) (from) other stairs and steps, initial encounter; Y93.89 Activity, other specified; Y92.89 Other specified places as the place of occurrence of the external cause; Y99.8 Other external cause status
CPT/HCPCS: 36415; 51702; 70450; 71045; 71260; 72125; 72170; 73552; 74177; 76000; 80048; 80053; 81001; 82306; 82607; 82962; 83540; 83550; 84443; 85014; 85018; 85025; 85610; 85730; 86850; 86900; 86901; 87086; 87641; 96374; C1713; C1887; J0171; J0690; J0696; J0780; J1100; J1170; J1815; J1885; J2001; J2250; J2270; J2405; J2704; J2795; J3010; J3490; J7030; J7120; Q9967; 97110; 97116; 97530; 97535; 99285-25